=== PATIENT | female | born 1985 | race Caucasian/White ===

== ENCOUNTER 2024-06-17 18:24 | Inpatient (IN) | payer OTHER, SELFPAY ==
[2024-06-17 13:30] VITALS: BP 153/94
[2024-06-17 13:55] LABS: % Basophils 0.1 % (0-2); % Eosinophils 0.1 % (0-6); % Immature Granulocytes 1.6 % (0-0.5); % Lymphocytes 9.6 % (20.5-51.1); % Monocytes 3.6 % (1.7-9.3); Absolute Immature Granulocytes 0.2 10^3/uL (0-0.05); Absolute Lymphocytes 1.3 10^3/uL (1.2-3.4); Absolute Monocytes 0.5 10^3/uL (0.1-0.6); Absolute Neutrophils 11.5 10^3/uL (1.4-6.5); Hematocrit 31.9 % (37.0-47.0); Hemoglobin 11.4 g/dL (12.0-16.0); Mean Corp Hgb Conc. 35.7 g/dL (33.0-37.0); Mean Corpuscular Hgb 32.9 pg (27.0-31.0); Mean Corpuscular Volume 91.9 fL (81.0-99.0); Mean Platelet Volume 9.2 fL (7.4-10.4); Nucleated Red Blood Cells % 0 %; Platelet Count 110 10^3/uL (130-400); Red Blood Cell Count 3.47 10^6/uL (4.20-5.40); Red Cell Dist. Width 20.1 % (11.5-14.5); White Blood Cell Count 13.5 10^3/uL (4.8-10.8)
[2024-06-17 14:04] LABS: HCG, Serum Qualitative Screen Negative
[2024-06-17 14:21] LABS: ALT (SGPT) 82 U/L (0-35); AST (SGOT) 261 U/L (14-36); Albumin 3.3 g/dl (3.5-5.0); Alkaline Phosphatase 236 U/L (38-126); Blood Urea Nitrogen 8 mg/dl (7-17); Calcium 8.5 mg/dl (8.4-10.2); Carbon Dioxide 18 mmol/L (22-30); Chloride 107 mmol/L (98-107); Glucose 247 mg/dl (70-99); Lipase 373 U/L (23-300); Potassium 4.3 mmol/L (3.5-5.1); Sodium 132 mmol/L (135-145); Total Bilirubin 8.1 mg/dl (0.2-1.3); Total Protein 7.7 g/dl (6.3-8.2); eGFR > 60.00
[2024-06-17 14:40] LABS: Urine Albumin Negative (Neg - Trace); Urine Bilirubin 1+ (Negative); Urine Character Clear (Clear); Urine Color Yellow; Urine Glucose Negative (Negative); Urine Ketone Negative (Negative); Urine Leukocyte Negative (Negative); Urine Nitrite Negative (Negative); Urine Occult Blood Negative (Negative); Urine Urobilinogen 2+ (Neg - 1+); Urine pH 6.5 (5.0-9.0)
[2024-06-17 16:04] LABS: Alcohol None Detected
--- NOTE | 2024-06-17 16:17 | ED.GENMED ---
History of Present Illness
General
Chief Complaint: Swelling
Source: patient
Exam Limitations: none
Time Seen by Provider: 06/17/24 14:36
Nursing documentation reviewed up to this point in time: agreed with
History of Present Illness
History of Present Illness:
Patient to ED [facility] complaint of swelling to abdomen and legs. States she was admitted to [place] 06/10 for jaundice. Labs confirm alcohol hepatitis.CT reveals hepatosplenomegaly/portal hypertension. Small amt of ascites. Tbilii max 7.0, elvated
LFT's. MRCP reportedly negative. She received IVF, zosyn, PPI and improved some. She was instructed to obtain weekly labs, close follow up with GI. States today she woke with extreme swelling. Brought self to ED for eval. Denies fever/chills.
+nausea, No v/d. States last alcoholic drink was prior to her dana admission. No reports of withdrawal.
Past History
Past History
ED Past Medical History: Psychiatric and Other (alcoholic hepatitis)
ED Past Surgical History: None
Social History
Tobacco: Vaping
Alcohol: Chronic alcoholic
Drug: None
Living: with family
Employment: Employed
Review of Systems
Review of Systems
Allergies reviewed?: Yes
All Other Systems: ROS reviewed and negative except as documented in HPI and ROS
Constitutional: Reports no symptoms
EENT: Reports no symptoms
Respiratory: Reports no symptoms
Cardiac: Reports no symptoms
ABD/GI: Reports nausea and other (ascites)
: Reports dark urine
Musculoskeletal: Reports no symptoms
Skin: Reports other (Jaundice)
Neurological: Reports no symptoms
Psychiatric: Reports no symptoms
Phy Exam
General Physical Exam
General Presentation: mild distress
General age: appears stated age
General Skin: warm, cyanotic and other (Jaundice)
General Habitus: normal
Cardiovascular Exam
Cardiovascular Exam: regular rate/rhythm
Pulmonary Exam
Pulmonary Exam: lungs clear and no respiratory distress
Gastrointestinal Exam
Gastrointestinal Exam: normal bowel sounds, soft and ascites
Palpation: generalized: Mild tenderness
Musculoskeletal Exam
Musculoskeletal Exam: edema (+3 BLE)
Skin Exam
Skin Exam: warm/dry, no rash and jaundice
Psychiatric Exam
Psychiatric Exam: normal mood/affect
Course
Orders/Labs/Results
Orders:
Orders
06/17/24 13:34
EKG [Electrocardiogram (*1)] Urgent
Reason for Study: Tachycardia
EKG- Treatment ONCE
Test Result ONCE
06/17/24 13:44
Alcohol Urgent
Complete Blood Count/With Diff Urgent
Comprehensive Metabolic Panel Urgent
HCG, Serum Qualitative Screen Urgent
Comment: Notify provider if positive test present
Lipase Urgent
06/17/24 14:30
Urinalysis Reflex To Culture Urgent
Date Specimen was Collected: 06/17/24
Time Specimen was Collected: 13:33
06/17/24 Dinner
Regular
At Your Request: Full Participation
06/17/24 15:26
Add On- LAB Urgent
Tests Added?: alcohol
06/17/24 16:15
US Abdomen Complete/Upper Urgent
Comment:
Reason For Exam: pain, abdominal swelling
06/17/24 16:29
0.9% Sodium Chloride 1000 ml [Nss] 1,000 ml IV BOLUS
06/17/24 16:43
Ketorolac [Toradol] 15 mg .ROUTE .STK-MED ONE
06/17/24 16:44
Ketorolac [Toradol] 15 mg IV NOW STA
06/17/24 18:05
Admit/Transfer Patient As Directed
Co-Sign Provider:
Level of Care: Inpatient admission
Assign to:: Medical/Surgical
Physician / Group: thomas
Diagnosis: alcoholic cirrhosis, alcoholic hepatitis
Reason for Hospitalization: alcoholic cirrhosis, alcoholic hepatitis
Expected length of stay greater than two midnights?: Yes
ELOS- Estimated Length of Stay in days: 2
I certify the patient meets the requirements for IP care: Yes
PRN Pain Medication Management As Directed
May give lesser potent ordered pain med per pt: Yes
preference::
Protocol:: Medication orders for pain may be administered in a
manner that supports deferring to patient preference
when the pt is:
- Requesting an ordered lesser potent pain medication.
Least to most potent pain medications are defined
as: acetaminophen < NSAID < tramadol < opioids
(morphine, oxycodone, hydromorphone).
- Requesting a lesser dose of the same medication IF
ORDERED.
- Requesting a less intrusive route of administration
if both routes are prescribed by the provider (PO <
IV).
06/17/24 18:06
Code Status As Directed
Resuscitation Status: Full Code
06/17/24 18:07
CR Chest - 2 Views Urgent
Comment:
Reason For Exam: SOB, eval for effusion
06/17/24 19:15
HYDROmorphone [Dilaudid] 0.5 mg IV Q4HPRN PRN
Ondansetron Injectable [Zofran] 4 mg IV Q6HPRN PRN
06/17/24 19:15
Activity As Directed
Activity Level: As Tolerated
Vital Signs As Directed
Frequency: Per unit guidelines
DX Deep Vein Thrombosis Video Routine
06/17/24 20:00
Heparin 5,000 units SC Q12
06/18/24 06:00
Complete Blood Count/With Diff IN AM
Comprehensive Metabolic Panel IN AM
06/18/24 08:00
Furosemide [Lasix] 40 mg PO DAILY
Spironolactone [Aldactone] 100 mg PO DAILY
Abnormal Lab Results
06/17/24 06/17/24
13:44 14:30
WBC 13.5 H 10^3/uL
(4.8-10.8)
RBC 3.47 L 10^6/uL
(4.20-5.40)
Hgb 11.4 L g/dL
(12.0-16.0)
Hct 31.9 L %
(37.0-47.0)
MCH 32.9 H pg
(27.0-31.0)
RDW 20.1 H %
(11.5-14.5)
Plt Count 110 L 10^3/uL
(130-400)
Abs Immat Gran (auto) 0.2 H 10^3/uL
(0-0.05)
Absolute Neuts (auto) 11.5 H 10^3/uL
(1.4-6.5)
Immature Gran % 1.6 H %
(0-0.5)
Neutrophils % 85.0 H %
(42.2-75.2)
Lymphocytes % 9.6 L %
(20.5-51.1)
Sodium 132 L mmol/L
(135-145)
Carbon Dioxide 18 L mmol/L
(22-30)
Glucose 247 H mg/dl
(70-99)
Total Bilirubin 8.1 H mg/dl
(0.2-1.3)
AST 261 H U/L
(14-36)
ALT 82 H U/L
(0-35)
Alkaline Phosphatase 236 H U/L
(38-126)
Albumin 3.3 L g/dl
(3.5-5.0)
Lipase 373 H U/L
(23-300)
Urine Bilirubin 1+ A
(Negative)
Urine Urobilinogen 2+ A
(Neg - 1+)
06/17/24 13:44
06/17/24 13:44
Vital Signs
Initial and Last Documented VS:
Initial Vital Signs
Temp Pulse Resp BP Pulse Ox
98.9 F 129 18 153/94 96
06/17/24 13:30 06/17/24 13:30 06/17/24 13:30 06/17/24 13:30 06/17/24 13:30
Last Documented Vital Signs
Temp Pulse Resp BP Pulse Ox
98.3 F 91 20 142/84 99
06/17/24 19:33 06/17/24 19:33 06/17/24 19:33 06/17/24 19:33 06/17/24 19:33
*Critical Care Note
Total Time (30-74mins, 75-104mins- exclusive of procedures): Not Applicable
ED Attending Note
-
Portions of this chart may have been created with voice recognition software.� Occasional wrong word or��sound alike� substitutions may have occurred due to the inherent limitations of voice recognition software.
Discharge Plan
Departure
Patient Disposition: Admit
Date of Disposition: 06/17/24
Time of Disposition: 17:01
Presentation/result/management discussed w/ accepting MD/DO: Hospitalist
Patient with high blood pressure during this ER visit?: No
Condition: Fair
Covid-19: Not Applicable
Discharge Problem:
Elevated LFTs, Ascites
Interventions
Interventions:
*Risk Screen - Suicide Last Done: 06/17/24 13:30
*General Assessment Last Done: 06/17/24 13:30
*Neglect/Abuse Screening Last Done: 06/17/24 13:30
ED- Fall Risk Assessment Last Done: 06/17/24 19:09
*ED COVID-19 Vaccine History Last Done: 06/17/24 13:30
*Nursing Disposition Last Done: 06/17/24 19:09
ED- Cardiac Assessment Last Done: 06/17/24 16:09
ED- Pulmonary Assessment Last Done: 06/17/24 16:09
ED-Skin Assessment Last Done: 06/17/24 16:09
Discharge Date and Time
Discharge Date/Time: 06/17/24 19:09
[2024-06-17] MEDS: TORADOL 15 MG IV (16:44)
--- NOTE | 2024-06-17 18:08 | HPS.HSE ---
Addendum entered and electronically signed by Juliet Cosby MD 06/17/24 19:57:
Alcohol withdrawal protocol added.
Original Note:
Family Physician
-
Family Physician: Louisa Tripathi PA-C
Chief Complaint
-
swelling
History of Present Illness
39-year-old female past medical history of gastric bypass in 2011, ADHD, history of perforated ulcer 5 years ago, GI bleeding secondary to anastomotic ulcer in the duodenum, internal hemorrhoids, GERD, anxiety, alcohol use, tobacco use presenting
with complaint of swelling of the abdomen and legs today since yesterday. She complains of pains in her legs and intermittent pain in her belly. She feels more short of breath than usual. She denies chest pain. She also think she is more
jaundiced than usual.
Denies fevers or chills. She does have nausea and dry heaving for the past several weeks. She denies diarrhea.
She was admitted at [facility] on 06/10 for jaundice. She was just released 3 days ago. She was found to have alcoholic hepatitis with CT scan showing hepatosplenomegaly/portal hypertension small amount of ascites. She had MRCP which was
negative. She received IV fluids, Zosyn, PPI with improvement. She also treated with prednisone with plan for eventual endoscopy.
She has not had any alcohol since the day prior to her admission to [place] on 06/10. She smokes socially. Denies marijuana or any other drugs.
Medical History
Past Medical History
Past Medical History: Reports Other (gastric bypass in 2011, ADHD, history of perforated ulcer 5 years ago, GI bleeding secondary to anastomotic ulcer in the duodenum, internal hemorrhoids, GERD, anxiety, alcohol use, tobacco use)
Past Surgical History: Reports Other (Rekha-en-Y gastric bypass, jaw surgery)
Social History
Tobacco: Smoker
Alcohol: Former
Drug: None
Family History
Family History: Not pertinent
Allergies / Home Medications
Allergies reflects when Allergies were last updated in [facility].
Home Medications with original date entered in [facility]
Allergy/Medication List:
Allergies
Allergy/AdvReac Type Severity Reaction Status Date / Time
No Known Allergies Allergy Verified 06/17/24 13:30
Home Medications
acetaminophen 500 mg tablet (Tylenol Extra Strength) 500 mg PO DAILYPRN PRN pain 09/06/17
lisdexamfetamine 20 mg capsule (Vyvanse) 20 mg PO DAILY 09/06/17
cyanocobalamin (vitamin B-12) 1,000 mcg tablet 1,000 mcg PO DAILY #30 tabs 09/07/17
ferrous sulfate 325 mg (65 mg iron) tablet (Feosol) 325 mg PO DAILY #60 tabs 09/07/17
pantoprazole 40 mg tablet,delayed release 40 mg PO DAILY #30 tabs 09/07/17
hydrocortisone acetate 25 mg rectal suppository 25 mg AL HSPRN PRN Hemorroids #30 supp 09/08/17
Review of Systems
-
History Source: Patient
A 12 point ROS was completed and negative except as noted: Yes
Constitutional: Reports No Symptoms
EENT: Reports No Symptoms
Respiratory: Reports No Symptoms
Cardiac: Reports No Symptoms
Abdomen/GI: Reports See HPI
: Reports No Symptoms
Musculoskeletal: Reports No Symptoms
Skin: Reports No Symptoms
Neurological: Reports No Symptoms
Endocrine: Reports No Symptoms
Hematologic/Lymphatic: Reports No Symptoms
Psych: Reports No Symptoms
Physical Exam
Vital Signs
Vital Signs
Temp Pulse Resp BP Pulse Ox
98.9 F 129 18 153/94 96
06/17/24 13:30 06/17/24 13:30 06/17/24 13:30 06/17/24 13:30 06/17/24 13:30
Physical Exam
General: Well Developed, Well Nourished and No Apparent Distress
HEENT: NormoCephalic, Moist mucous membranes and Atraumatic
Respiratory: Clear
Cardiac: S1/S2 and Regular Rhythm; No Murmur or Rub
GI: Soft, Non Distended, Normal Bowel Sounds and Tender; No Organomegaly
Rectal: Deferred by Provider
Musculoskeletal: No Clubbing, No Cyanosis and No Edema
Skin: No Rash
Neuro: Nonfocal/grossly intact
Laboratory Results
-
06/17/24 13:44
06/17/24 13:44
Laboratory Results
Total Bilirubin 8.1 mg/dl (0.2-1.3) H 06/17/24 13:44
AST 261 U/L (14-36) H 06/17/24 13:44
ALT 82 U/L (0-35) H 06/17/24 13:44
Alkaline Phosphatase 236 U/L (38-126) H 06/17/24 13:44
Lipase 373 U/L (23-300) H 06/17/24 13:44
Data Reviewed
-
Lab Data: Labs Reviewed by me
Old Records: Reviewed
Impression/Plan
-
IMPRESSION:
PLAN:
# Abdominal ascites/peripheral edema secondary to decompensated alcoholic cirrhosis
-Abdominal ultrasound pending to see if IR paracentesis possible
-Check chest x-ray to evaluate for hepatic hydrothorax
-Bilirubin 8.1 from 7 during [place] hospitalization
-GI consulted
-Start Lasix 40 mg, spironolactone 100 mg for edema
# Transaminitis secondary to worsening alcoholic hepatitis
-Continue prednisone which was started at [place]
-Trend liver enzymes
History of Rekha-en-Y gastric bypass in 2011
History of perforated ulcer
History of GI bleeding secondary to anastomotic ulcer in the duodenum
-Continue Protonix
Chronic anemia secondary to anemia of chronic disease
-Hemoglobin higher than recent times at 11.4
-Continue ferrous sulfate
-Continue B12
Thrombocytopenia secondary to cirrhosis
-Platelets 110
History of internal hemorrhoids
GERD
-Continue Protonix
Anxiety
ADHD
-Continue Vyvanse
Alcohol use disorder
-No alcohol use since 06/09
History of tobacco use
-Social smoker
Full code
DVT prophylaxis�heparin
Low-sodium diet
[2024-06-17 19:33] VITALS: BP 142/84; BMI 32.8
[2024-06-17] MEDS: HEPARIN 5000 UNITS SC (21:46)
[2024-06-17 22:15] VITALS: BP 127/85
[2024-06-17] MEDS: ATIVAN 0.5 MG IV (23:19)
[2024-06-17] MEDS: NSS (PRESERVATIVE FREE) 0.25 ML IV (23:20)
[2024-06-18] MEDS: ZOFRAN 4 MG IV (01:57)
[2024-06-18] MEDS: DILAUDID 0.5 MG IV ×2 (05:05→15:00)
[2024-06-18 07:00] VITALS: BP 114/74
[2024-06-18 07:46] LABS: % Basophils 0.2 % (0-2); % Eosinophils 0.7 % (0-6); % Immature Granulocytes 1.1 % (0-0.5); % Lymphocytes 21.3 % (20.5-51.1); % Monocytes 13.6 % (1.7-9.3); % Neutrophils 63.1 % (42.2-75.2); Absolute Eosinophils 0.1 10^3/uL (0-0.7); Absolute Immature Granulocytes 0.2 10^3/uL (0-0.05); Absolute Lymphocytes 3.2 10^3/uL (1.2-3.4); Absolute Neutrophils 9.4 10^3/uL (1.4-6.5); Hematocrit 29.7 % (37.0-47.0); Hemoglobin 10.6 g/dL (12.0-16.0); Mean Corp Hgb Conc. 35.7 g/dL (33.0-37.0); Mean Corpuscular Hgb 32.4 pg (27.0-31.0); Mean Corpuscular Volume 90.8 fL (81.0-99.0); Mean Platelet Volume 9.4 fL (7.4-10.4); Nucleated Red Blood Cells % 0 %; Platelet Count 111 10^3/uL (130-400); Red Blood Cell Count 3.27 10^6/uL (4.20-5.40); Red Cell Dist. Width 20.3 % (11.5-14.5); White Blood Cell Count 14.8 10^3/uL (4.8-10.8)
[2024-06-18] MEDS: HEPARIN 5000 UNITS SC (08:32)
[2024-06-18] MEDS: THERAGRAN 1 TABLET PO (08:33)
[2024-06-18] MEDS: ALDACTONE 100 MG PO (08:33)
[2024-06-18] MEDS: DELTASONE 40 MG PO (08:33)
[2024-06-18] MEDS: B COMPLEX w/VITAMIN C 1 CAPLET PO (08:33)
[2024-06-18] MEDS: EFFEXOR XR 75 MG PO (08:33)
[2024-06-18] MEDS: FOLVITE 1 MG PO (08:33)
[2024-06-18] MEDS: PROTONIX 40 MG PO (08:33)
[2024-06-18] MEDS: LASIX 40 MG PO (08:33)
[2024-06-18] MEDS: VITAMIN B1 100 MG PO (08:33)
--- NOTE | 2024-06-18 08:37 | CON.GI ---
Medical History
Chief Complaint / HPI
Chief Complaint: Lower extremity edema + worsening juandice
History of Present Illness:
Patient is a 39-year-old female with a past medical history of gastric bypass (2011), ADHD, anxiety, perforated duodenal ulcer s/p metal suture, internal hemorrhoids, GERD, chronic alcohol use disorder presenting with lower extremity edema and
worsening jaundice. Patient recently presented to [place] with jaundice, dark urine, and telangiectasia and was diagnosed with acute alcoholic hepatitis. Steroid was started on 06/09 which resulted in relative improvement of symptoms. Patient also
had MRCP done during [place] admission due to gallbladder distention and suspicion for cholecystitis which was negative. Patient was discharged on prednisone for 24 days, however she mentions worsening of jaundice and noticing lower extremity
edema 2 days after discharge for which she came into .
At the time of this consultation, patient denies any fever, nausea, vomiting, chest pain. Mentions right-sided abdominal pain early in the morning. Also mentions getting out of breath easily. She has gained 20 pounds during the past 2 weeks.
Reports urinary frequency but no dysuria (lasix not yet given). Her last bowel movement was yesterday which had normal consistency and was not bloody or dark. Her last endoscopy and colonoscopy were in 2016. Does not have a regular GI doctor.
Last alcoholic drink was about 2 weeks ago.
Abdomen ultrasound here suggests splenomegaly, hepatomegaly, the possibility of liver cirrhosis and probable superimposed hepatocellular disease. Also small amount of ascites present within the right and left lower quadrant.
Past Medical History
Past Medical History: GERD and Psychiatric
Past Surgical History: Other (Gastric bypass)
Social History
Tobacco: Smoker
Alcohol: Chronic Alcoholic
Family History
Family History: Reviewed & Not Pertinent
Allergies / Home Medications
Allergy/AdvReac Type Severity Reaction Status Date / Time
No Known Allergies Allergy Verified 06/17/24 13:30
�Medication �Instructions �Recorded
pantoprazole 40 mg tablet,delayed 40 mg PO DAILY #30 tabs 09/07/17
release
Ativan 1 mg PO PRN anxiety 06/17/24
dextroamphetamine-amphetamine 30 30 mg PO BID 06/17/24
mg tablet
diphenhydramine 25 1 tab PO HSPRN PRN mild pain 06/17/24
mg-acetaminophen 500 mg tablet
(Tylenol PM Extra Strength)
folic acid 1 mg tablet 1 mg PO DAILY 06/17/24
prednisone 20 mg tablet 40 mg PO DAILY 06/17/24
therapeutic multivitamin 1 tab PO DAILY 06/17/24
thiamine HCl (vitamin B1) 100 mg 100 mg PO DAILY 06/17/24
tablet
venlafaxine 75 mg tablet,extended 75 mg PO DAILY 06/17/24
release 24 hr
vitamin B complex 1 cap PO DAILY 06/17/24
Review of Systems
-
History Source: Patient
Constitutional: Reports Weight Gain
Respiratory: Reports Trouble Breathing
Abdomen/GI: Reports Abdominal Pain; Denies Nausea, Vomiting, Diarrhea, Constipated, Bloody Stools or Black Stools
: Reports Frequency
Skin: Reports Rash; Denies Itching
Neurological: Denies Dizzy or Headache
Vital Signs
Temp Pulse Resp BP Pulse Ox
98.5 F 102 18 127/85 100
06/17/24 22:15 06/17/24 22:15 06/17/24 22:15 06/17/24 22:15 06/17/24 22:15
Physical Exam
Exam
General: Well Developed and No Apparent Distress
HEENT: Other (Icteric, )
Respiratory: Clear
Cardiac: S1/S2, Regular Rhythm and Other (Tachycardic)
GI: Soft, Non Tender, Normal Bowel Sounds, Distended and Organomegaly
Musculoskeletal: No Clubbing and Edema (Nonpitting 1+ edema)
Skin: Rash and Other (Jaundice)
Neuro: Awake, Alert, Oriented and AO x 3; Negative Tremors
Psych: Calm
Results
WBC 14.8 10^3/uL (4.8-10.8) H 06/18/24 07:36
Hgb 10.6 g/dL (12.0-16.0) L 06/18/24 07:36
Hct 29.7 % (37.0-47.0) L 06/18/24 07:36
MCV 90.8 fL (81.0-99.0) 06/18/24 07:36
Plt Count 111 10^3/uL (130-400) L 06/18/24 07:36
Absolute Neuts (auto) 9.4 10^3/uL (1.4-6.5) H 06/18/24 07:36
Sodium 132 mmol/L (135-145) L 06/17/24 13:44
Potassium 4.3 mmol/L (3.5-5.1) 06/17/24 13:44
Chloride 107 mmol/L (98-107) 06/17/24 13:44
Carbon Dioxide 18 mmol/L (22-30) L 06/17/24 13:44
BUN 8 mg/dl (7-17) 06/17/24 13:44
Creatinine 0.6 mg/dL (0.6-1.0) 06/17/24 13:44
Calcium 8.5 mg/dl (8.4-10.2) 06/17/24 13:44
Total Bilirubin 8.1 mg/dl (0.2-1.3) H 06/17/24 13:44
AST 261 U/L (14-36) H 06/17/24 13:44
ALT 82 U/L (0-35) H 06/17/24 13:44
Alkaline Phosphatase 236 U/L (38-126) H 06/17/24 13:44
Lipase 373 U/L (23-300) H 06/17/24 13:44
Diagnostic Image Results: Abdominal ultrasound (06/17/2024)
Mobile sludge is present within the gallbladder. Gallbladder wall thickness is top normal, nonspecific.
No evidence of biliary ductal dilation.
Hepatomegaly. Increased echogenicity of the liver with slight heterogeneity and increased attenuation of the ultrasound beam. Findings suggest that there is fatty infiltration. Heterogeneity may also indicate underlying hepatocellular disease.
Splenomegaly with recannulized paraumbilical vein and small amount of ascites. Findings suggest the possibility of cirrhosis.
Prior GI Procedures:
EGD: 09/07/17
Rekha-en-Y gastrojejunostomy with gastrojejunal
anastomosis characterized by healthy appearing mucosa.
- Normal stomach. Biopsied.
- One non-bleeding superficial chronic anastomotic
duodenal ulcer with no stigmata of bleeding. Biopsied.
- Duodenal foreign body (metal suture) .
- Normal examined duodenum. Biopsied.
Colonoscopy: 09/08/17
- Non-bleeding internal hemorrhoids.
- The entire examined colon is normal.
- The examined portion of the ileum was normal.
Assessment / Plan
-
Patient is a 39-year-old female with a past medical history of gastric bypass (2011), ADHD, anxiety, perforated duodenal ulcer s/p metal suture, internal hemorrhoids, GERD, chronic alcohol use disorder presenting with lower extremity edema and
worsening jaundice. Patient recently presented to [place] with jaundice, dark urine, and telangiectasia and was diagnosed with acute alcoholic hepatitis. Steroid was started on 06/09. Currently day 10.
She recently traveled to [place] but the flight was only 35 minutes. Patient denies any fever or chest pain. Mentions right-sided abdominal pain early in the morning but no nausea, vomiting. Also mentions getting out of breath easily. She
has gained 20 pounds during the past 2 weeks. Reports urinary frequency but no dysuria (lasix not yet given). Her last bowel movement was yesterday which had normal consistency and was not bloody or dark. Her last endoscopy and colonoscopy were in
2016. Does not have a regular GI doctor. Last alcoholic drink was about 2 weeks ago. On physical exam patient has visible jaundice. No tenderness to palpation. No rebound or guarding. Negative fluid shift.
Labs show anemia, thrombocytopenia, mild leukocytosis. Last bili is 8.1. AST > ALT suggesting alcohol hepatitis. Mild hyponatremia.
Abdomen ultrasound here suggests splenomegaly, hepatomegaly, the possibility of liver cirrhosis and probable superimposed hepatocellular disease. Also small amount of ascites present within the right and left lower quadrant.
Recommendations:
-Day 10 of steroid. Lille score is 0.053
-Continue MSAS protocol
-Continue spironolactone and Lasix
-Continue Protonix
-CT scan to evaluate focal hepatic lesions
-LFTs this a.m. pending
-Advised patient regarding alcohol abstinence
-
-
Thank you for consultation and allowing me to participate in the patient's care. Please call the nutrition aide GI physician during the after hours with any questions or concerns.
--- NOTE | 2024-06-18 09:02 | W.PN.HOSP.TC ---
Today's Communication/Plan
-
see bold
Assessment / Plan
Assessment / Plan
HPI: 39-year-old female past medical history of gastric bypass in 2011, ADHD, history of perforated ulcer 5 years ago, GI bleeding secondary to anastomotic ulcer in the duodenum, internal hemorrhoids, GERD, anxiety, alcohol use, tobacco use
presenting with complaint of swelling of the abdomen and legs today since yesterday. She complains of pains in her legs and intermittent pain in her belly. She feels more short of breath than usual. She denies chest pain. She also think she is
more jaundiced than usual.
She was admitted at [facility] on 06/10 for jaundice. She was just released 3 days ago. She was found to have alcoholic hepatitis with CT scan showing hepatosplenomegaly/portal hypertension small amount of ascites. She had MRCP which was
negative. She received IV fluids, Zosyn, PPI with improvement. She also treated with prednisone with plan for eventual endoscopy.
She has not had any alcohol since the day prior to her admission to [place] on 06/10. She smokes socially. Denies marijuana or any other drugs.
# Abdominal ascites/peripheral edema secondary to decompensated alcoholic cirrhosis
Appreciate GI input, IR consulted for diagnostic thoracentesis
Lower extremity Dopplers ordered to rule out DVT
Continue Lasix/Aldactone, start fluid restriction, trend creatinine
# Hyperbilirubinemia/jaundice
# Transaminitis secondary to worsening alcoholic hepatitis
-GI changed prednisone that was started at [place] to prednisolone
-Trend liver enzymes
Alcohol use disorder
-No alcohol use since 06/09
-Alcohol cessation counseling has been provided
Anxiety
-Resume home Ativan as needed
History of Rekha-en-Y gastric bypass in 2011
History of perforated ulcer
History of GI bleeding secondary to anastomotic ulcer in the duodenum
-Continue Protonix
Chronic anemia secondary to anemia of chronic disease
-Continue ferrous sulfate
-Continue B12
-Trend hemoglobin
Thrombocytopenia secondary to cirrhosis
-Platelets 110
History of internal hemorrhoids
GERD
-Continue Protonix
Anxiety
ADHD
-Continue Vyvanse
History of tobacco use
-Social smoker
DVT prophylaxis�subcu heparin
Full code
Total time spent to see the patient on the floor, examine the patient, review data and lab results, discuss treatment plan with patient, nursing staff around 51 minutes.
Physical Exam
General: Obese, no acute distress
HEENT: Normocephalic, Atraumatic, EOMI, MMM
Respiratory: Clear to Auscultation bilaterally
Cardiac: Normal S1/S2, Regular Rate and Rhythm
GI: Soft, Nontender, mildly distended, no masses guarding or rebound
Extremities: No Clubbing, Cyanosis
Bilateral lower extremity edema noted
Neuro: Nonfocal/Grossly Intact
Psych: Calm, Cooperative
Derm: No Visible lesions
Anticipated Discharge: 24 - 48 hours
Subjective/Interval History
-
Date of Service: June 18, 2024
Patient reports abdominal distention and lower extremity swelling mildly improved. Has dyspnea with activity, no shortness of breath at rest. No fever, no vomiting.
Objective Data
-
Labs:
Laboratory Results
06/18/24
07:36
WBC 14.8 H
Hgb 10.6 L
Hct 29.7 L
Plt Count 111 L
Sodium Pending
Potassium Pending
Chloride Pending
Carbon Dioxide Pending
BUN Pending
Creatinine Pending
Glucose Pending
Calcium Pending
Total Bilirubin Pending
AST Pending
ALT Pending
Alkaline Phosphatase Pending
Vital Signs:
Vital Signs
Temp Pulse Resp BP Pulse Ox
98.5 F 102 18 127/85 100
06/17/24 22:15 06/17/24 22:15 06/17/24 22:15 06/17/24 22:15 06/17/24 22:15
I&O
06/17/24 06/18/24 06/19/24
06:59 06:59 06:59
Intake Total 720 / 720
Balance 720 / 720
[2024-06-18 09:51] LABS: ALT (SGPT) 83 U/L (0-35); AST (SGOT) 234 U/L (14-36); Albumin 2.8 g/dl (3.5-5.0); Alkaline Phosphatase 207 U/L (38-126); Blood Urea Nitrogen 9 mg/dl (7-17); Carbon Dioxide 23 mmol/L (22-30); Chloride 108 mmol/L (98-107); Estimated Creatinine Clearance > 125 ml/min; Glucose 72 mg/dl (70-99); Potassium 3.8 mmol/L (3.5-5.1); Sodium 136 mmol/L (135-145); Total Protein 6.7 g/dl (6.3-8.2); eGFR > 60.00
[2024-06-18] MEDS: ATIVAN 1 MG PO (11:12)
[2024-06-18 15:00] VITALS: BP 126/78
--- NOTE | 2024-06-18 16:06 | CM ---
Patient seen at bedside.
Dx: Alcoholic Cirrhosis Alcoholic hepatitis
PMH: gastric bypass 2012, anxiety, perforated ulcer, GERD
Case management consult complete.
Patient declined [facility] resources.
Lives in a 3 story home with 8 y/o son. 5 steps to enter & 12 steps to 2nd/3rd floor.
PLOF: Independent & drives
No DME in home.
CM to follow.
PCP: Louisa Tripathi
[facility]acy: [facility]
PLAN: Discharge when medically stable.
No anticipated needs currently.
[2024-06-18 18:35] LABS: INR 1.74; PT 20.5 Sec (11.4-14.6)
[2024-06-18 20:01] LABS: AFP Male/Tumor Marker 6.92 ng/ml
[2024-06-18 23:55] VITALS: BP 121/72
[2024-06-19] MEDS: HEPARIN 5000 UNITS SC ×3 (00:43→19:43)
[2024-06-19] MEDS: DILAUDID 0.5 MG IV ×3 (02:53→22:22)
[2024-06-19 07:00] VITALS: BP 117/66
[2024-06-19] MEDS: PRELONE 40 MG PO (08:52)
--- NOTE | 2024-06-19 08:53 | W.PN.HOSP.TC ---
Today's Communication/Plan
-
Discharge tomorrow
Assessment / Plan
Assessment / Plan
HPI: 39-year-old female past medical history of gastric bypass in 2011, ADHD, history of perforated ulcer 5 years ago, GI bleeding secondary to anastomotic ulcer in the duodenum, internal hemorrhoids, GERD, anxiety, alcohol use, tobacco use
presenting with complaint of swelling of the abdomen and legs today since yesterday. She complains of pains in her legs and intermittent pain in her belly. She feels more short of breath than usual. She denies chest pain. She also think she is
more jaundiced than usual.
She was admitted at [facility] on 06/10 for jaundice. She was just released 3 days ago. She was found to have alcoholic hepatitis with CT scan showing hepatosplenomegaly/portal hypertension small amount of ascites. She had MRCP which was
negative. She received IV fluids, Zosyn, PPI with improvement. She also treated with prednisone with plan for eventual endoscopy.
She has not had any alcohol since the day prior to her admission to [place] on 06/10. She smokes socially. Denies marijuana or any other drugs.
# Abdominal ascites/peripheral edema secondary to decompensated alcoholic cirrhosis
Appreciate GI input, not enough fluid to drain
Lower extremity Dopplers negative for DVT
Continue Lasix/Aldactone, start fluid restriction, trend creatinine
Discharge tomorrow
# Hyperbilirubinemia/jaundice
# Transaminitis secondary to worsening alcoholic hepatitis
-GI changed prednisone that was started at [place] to prednisolone, will need to be discharged on a prednisolone taper
-Trend liver enzymes
#Hyponatremia
Mild
Alcohol use disorder
-No alcohol use since 06/09
-Alcohol cessation counseling has been provided
Anxiety
-[facility]
History of Rekha-en-Y gastric bypass in 2011
History of perforated ulcer
History of GI bleeding secondary to anastomotic ulcer in the duodenum
-Continue Protonix
Chronic anemia secondary to anemia of chronic disease
-Continue ferrous sulfate
-Continue B12
-Trend hemoglobin
Thrombocytopenia secondary to cirrhosis
-Platelets stable
History of internal hemorrhoids
GERD
-Continue Protonix
Anxiety
ADHD
-Continue Vyvanse
History of tobacco use
-Social smoker
DVT prophylaxis�subcu heparin
Full code
Total time spent to see the patient on the floor, examine the patient, review data and lab results, discuss treatment plan with patient, nursing staff around 41 minutes.
Physical Exam
General: Obese, no acute distress
HEENT: Normocephalic, Atraumatic, EOMI, MMM
Respiratory: Clear to Auscultation bilaterally
Cardiac: Normal S1/S2, Regular Rate and Rhythm
GI: Soft, Nontender, mildly distended, no masses guarding or rebound
Extremities: No Clubbing, Cyanosis
Bilateral lower extremity edema noted
Neuro: Nonfocal/Grossly Intact
Psych: Calm, Cooperative
Derm: Scattered ecchymosis
Anticipated Discharge: Within 24 hours
Subjective/Interval History
-
Date of Service: June 19, 2024
Patient reports intermittent abdominal pain and headache. No fever, no vomiting.
Objective Data
-
Labs:
Laboratory Results
06/19/24
06:00
WBC Pending
Hgb Pending
Hct Pending
Plt Count Pending
Sodium Pending
Potassium Pending
Chloride Pending
Carbon Dioxide Pending
BUN Pending
Creatinine Pending
Glucose Pending
Calcium Pending
Total Bilirubin Pending
AST Pending
ALT Pending
Alkaline Phosphatase Pending
Vital Signs:
Vital Signs
Temp Pulse Resp BP Pulse Ox
98.0 F 78 18 121/72 97
06/18/24 23:55 06/18/24 23:55 06/18/24 23:55 06/18/24 23:55 06/18/24 23:55
I&O
06/18/24 06/19/24 06/20/24
06:59 06:59 06:59
Intake Total 720 / 720 1680 / 1680
Balance 720 / 720 1680 / 1680
[2024-06-19] MEDS: ALDACTONE 100 MG PO (08:54)
[2024-06-19] MEDS: B COMPLEX w/VITAMIN C 1 CAPLET PO (08:54)
[2024-06-19] MEDS: EFFEXOR XR 75 MG PO (08:54)
[2024-06-19] MEDS: LASIX 40 MG PO (08:54)
[2024-06-19] MEDS: FOLVITE 1 MG PO (08:54)
[2024-06-19] MEDS: THERAGRAN 1 TABLET PO (08:54)
[2024-06-19] MEDS: VITAMIN B1 100 MG PO (08:54)
[2024-06-19] MEDS: PROTONIX 40 MG PO (08:54)
[2024-06-19] MEDS: ATIVAN 1 MG PO ×2 (09:04→19:55)
[2024-06-19 09:20] VITALS: BP 113/69; BP_SYST 106
[2024-06-19 11:18] LABS: Hematocrit 27.9 % (37.0-47.0); Hemoglobin 9.9 g/dL (12.0-16.0); Mean Corp Hgb Conc. 35.5 g/dL (33.0-37.0); Mean Corpuscular Hgb 32.7 pg (27.0-31.0); Mean Corpuscular Volume 92.1 fL (81.0-99.0); Mean Platelet Volume 9.3 fL (7.4-10.4); Platelet Count 100 10^3/uL (130-400); Red Blood Cell Count 3.03 10^6/uL (4.20-5.40); Red Cell Dist. Width 20.7 % (11.5-14.5); White Blood Cell Count 12.8 10^3/uL (4.8-10.8)
[2024-06-19 12:02] LABS: ALT (SGPT) 90 U/L (0-35); AST (SGOT) 244 U/L (14-36); Albumin 2.9 g/dl (3.5-5.0); Alkaline Phosphatase 201 U/L (38-126); Blood Urea Nitrogen 12 mg/dl (7-17); Carbon Dioxide 22 mmol/L (22-30); Chloride 105 mmol/L (98-107); Estimated Creatinine Clearance > 125 ml/min; Glucose 120 mg/dl (70-99); Phosphorus 3.6 mg/dl (2.5-4.5); Potassium 3.7 mmol/L (3.5-5.1); Sodium 134 mmol/L (135-145); Total Bilirubin 5.4 mg/dl (0.2-1.3); Total Protein 6.8 g/dl (6.3-8.2); eGFR > 60.00
--- NOTE | 2024-06-19 13:18 | PN.CDI ---
CDI
- -
CDI:
Physician Documentation Request
Admit Date: 06/17/24 18:24
Dear Doctor Do,
Patient admitted with decompensated alcoholic cirrhosis.
Na levels documented below:
Laboratory Tests
06/17/24 06/19/24
13:44 11:02
Sodium 132 L 134 L
Based on the above, could you clarify in the progress notes, the appropriate diagnosis, if significant, that supports the above abnormalities and additional evaluation, monitoring and/or treatment rendered:
Hyponatremia
Insignificant abnormal lab findings
Other
Use of terms such as suspected, likely, concern for, or probable (associated with a specific diagnosis that is being evaluated, monitored, or treated as if it exists) are acceptable and can be coded in the inpatient setting, when documented at the
time of discharge.
Thank you,
Alicia STALEYN,RN,CCDS
CDI Specialist
Available via tiger text
Please use your independent medical judgment in providing your response.
--- NOTE | 2024-06-19 14:24 | CM ---
Chart reviewed and case management social worker met with patient plan is to home when stable, patient has denied the need for [facility] treatment options. Patient's son is currently with father and grandmother while patient is in the hospital.
Plan; Home when stable, no needs.
--- NOTE | 2024-06-19 14:59 | W.PN.GI.CBS2 ---
Addendum entered and electronically signed by Lana Gallardo MD 06/19/24 16:09:
I saw and examined the patient.
The nuclear medical technologist note was reviewed and I agree with the note.
39-year-old female with past medical history of ADHD, anxiety, status post gastric Rekha-en-Y bypass 2011, perforated DU, chronic alcohol use with recent alcohol hepatitis admitted to [facility] and was started on steroids looks like on 06/09
or 06/10 and was just discharged about 2 to 3 days ago and she says that she started to feel worse again especially with increasing lower extremity edema and dyspnea on exertion and abdominal distention and presents to [place]. Apparently she also
had an MRCP/ CT done at [place] for gallbladder distention and was ruled out for cholecystitis. Currently denies any rectal bleeding or melena no nausea or vomiting. She did have an endoscopy and a colonoscopy in 2017 as described below at that
time no varices were noted and she did have anastomotic ulcers. She has been on a PPI and denies use of NSAIDs.
Paracentesis was canceled today-no adequate fluid
plan
2 g sodium diet
Continue Lasix/Aldactone
Continue prednisolone started for alcoholic hepatitis at [facility] 06/09. Total bilirubin trending down now
Need to obtain official records from [facility]
Advised on strict alcohol abstinence
Advised to follow-up with GI/hepatology as outpatient with repeat LFT/ PT/INR/BMP in 1 week
EGD for variceal screening as outpatient
For further workup for liver cirrhosis/follow-up as outpatient
No further recommendation at this point. GI will sign off.
Original Note:
Today's Communication / Plan
-
Consider increasing Lasix dose
Assessment / Plan
-
Patient is a 39-year-old female with a past medical history of gastric bypass (2011), ADHD, anxiety, perforated duodenal ulcer s/p metal suture, internal hemorrhoids, GERD, chronic alcohol use disorder presenting with lower extremity edema and
worsening jaundice. Patient recently presented to [facility] with jaundice, dark urine, and telangiectasia and was diagnosed with acute alcoholic hepatitis. Prednisone was started on 06/09 at [place].
Abdomen ultrasound here suggests splenomegaly, hepatomegaly, the possibility of liver cirrhosis and probable superimposed hepatocellular disease. Also small amount of ascites present within the right and left lower quadrant.
No TTP. No fever overnight/ today. Peripheral pitting edema 2+ .
Recommendations:
-Day 11 of steroid. Prednisone changed to prednisolone yesterday.
-Continue MSAS protocol
-Continue spironolactone. Peripheral edema does not seem to have improved. Consider increasing Lasix dose
- Continue Protonix
- Paracentesis cancelled due to minimal ascites fluid.
- She will need an eventual endoscopy for esophageal varices surveillance as outpatient. Will also need HCC surveillance every 6 months including AFP and ultrasound every 6 months.
- Advised patient regarding alcohol abstinence
- Patient is clear for discharge from GI standpoint. Can follow-up wit Dr. Verma as outpatient.
Subjective
Subjective
Date of Service: June 19, 2024
Objective
Data Reviewed
Laboratory Data:
Laboratory Results
06/19/24 11:02
06/19/24 11:02
Laboratory Results
PT 20.5 Sec (11.4-14.6) H 06/18/24 18:05
INR 1.74 06/18/24 18:05
Phosphorus 3.6 mg/dl (2.5-4.5) 06/19/24 11:02
Magnesium 2.0 mg/dl (1.6-2.3) 06/19/24 11:02
Total Bilirubin 5.4 mg/dl (0.2-1.3) H 06/19/24 11:02
AST 244 U/L (14-36) H 06/19/24 11:02
ALT 90 U/L (0-35) H 06/19/24 11:02
Alkaline Phosphatase 201 U/L (38-126) H 06/19/24 11:02
Lipase 373 U/L (23-300) H 06/17/24 13:44
Vital Signs and I&O:
Vital Signs
Temp Pulse Resp BP Pulse Ox
98.5 F 106 14 113/69 97
06/19/24 09:20 06/19/24 09:20 06/19/24 09:20 06/19/24 09:20 06/19/24 09:20
I&O
06/18/24 06/19/24 06/20/24
06:59 06:59 06:59
Intake Total 720 / 720 1680 / 1680
Balance 720 / 720 1680 / 1680
[2024-06-19 15:00] VITALS: BP 109/69
[2024-06-19 23:05] VITALS: BP 114/67
[2024-06-20] MEDS: ATIVAN 1 MG PO (03:29)
[2024-06-20 07:08] VITALS: BP 112/69
--- NOTE | 2024-06-20 07:38 | W.PN.HOSP.TC ---
Today's Communication/Plan
-
Discharge today
Assessment / Plan
Assessment / Plan
HPI: 39-year-old female past medical history of gastric bypass in 2011, ADHD, history of perforated ulcer 5 years ago, GI bleeding secondary to anastomotic ulcer in the duodenum, internal hemorrhoids, GERD, anxiety, alcohol use, tobacco use
presenting with complaint of swelling of the abdomen and legs today since yesterday. She complains of pains in her legs and intermittent pain in her belly. She feels more short of breath than usual. She denies chest pain. She also think she is
more jaundiced than usual.
She was admitted at [facility] on 06/10 for jaundice. She was just released 3 days ago. She was found to have alcoholic hepatitis with CT scan showing hepatosplenomegaly/portal hypertension small amount of ascites. She had MRCP which was
negative. She received IV fluids, Zosyn, PPI with improvement. She also treated with prednisone with plan for eventual endoscopy.
She has not had any alcohol since the day prior to her admission to [place] on 06/10. She smokes socially. Denies marijuana or any other drugs.
# Abdominal ascites/peripheral edema secondary to decompensated alcoholic cirrhosis
Appreciate GI input, not enough abd fluid to drain
Lower extremity Dopplers negative for DVT
Started on Lasix/Aldactone, 2 gram Na diet, fluid restriction, trend creatinine
Discharge today
# Hyperbilirubinemia/jaundice
# Transaminitis secondary to worsening alcoholic hepatitis
-GI changed prednisone that was started at [place] to prednisolone, will need to be discharged on a prednisolone x 4 weeks (no taper per GI)
-Bilirubin and LFTs trending down
-Alcohol cessation counseling has been provided
#Leukocytosis
From steroid use
#Hyponatremia
Mild
Alcohol use disorder
-No alcohol use since 06/09
-Alcohol cessation counseling has been provided
Anxiety
-Resumed home Ativan as needed
History of Rekha-en-Y gastric bypass in 2011
History of perforated ulcer
History of GI bleeding secondary to anastomotic ulcer in the duodenum
-Continue Protonix
Chronic anemia secondary to anemia of chronic disease
-Continue ferrous sulfate
-Continue B12
-Trend hemoglobin
Thrombocytopenia secondary to cirrhosis
-Platelets stable
History of internal hemorrhoids
GERD
-Continue Protonix
Anxiety
ADHD
-Continue Vyvanse
History of tobacco use
-Social smoker
DVT prophylaxis�subcu heparin
Full code
Physical Exam
General: Obese, no acute distress
HEENT: Normocephalic, Atraumatic, EOMI, MMM, icteric sclerae, improved from prior
Respiratory: Clear to Auscultation bilaterally
Cardiac: Normal S1/S2, Regular Rate and Rhythm
GI: Soft, Nontender, mildly distended, no masses guarding or rebound
Extremities: No Clubbing, Cyanosis
Bilateral lower extremity edema noted
Neuro: Nonfocal/Grossly Intact
Psych: Calm, Cooperative
Derm: Scattered ecchymosis, mildly jaundice
Anticipated Discharge: Today
Subjective/Interval History
-
Date of Service: June 19, 2024
Reports abd pain. Abd and LE swelling improved. No fever, no vomiting.
Objective Data
-
Labs:
Laboratory Results
06/19/24
11:02
WBC 12.8 H
Hgb 9.9 L
Hct 27.9 L
Plt Count 100 L
Sodium 134 L
Potassium 3.7
Chloride 105
Carbon Dioxide 22
BUN 12
Creatinine 0.5 L
Glucose 120 H
Calcium 8.0 L
Total Bilirubin 5.4 H
AST 244 H
ALT 90 H
Alkaline Phosphatase 201 H
Vital Signs:
Vital Signs
Temp Pulse Resp BP Pulse Ox
98.3 F 94 18 109/69 96
06/19/24 15:00 06/19/24 15:00 06/19/24 15:00 06/19/24 15:00 06/19/24 15:00
I&O
06/18/24 06/19/24 06/20/24
06:59 06:59 06:59
Intake Total 720 / 720 1680 / 1680
Balance 720 / 720 1680 / 1680
[2024-06-20] MEDS: VITAMIN B1 100 MG PO (08:00)
[2024-06-20] MEDS: B COMPLEX w/VITAMIN C 1 CAPLET PO (08:00)
[2024-06-20] MEDS: THERAGRAN 1 TABLET PO (08:00)
[2024-06-20] MEDS: PROTONIX 40 MG PO (08:01)
[2024-06-20] MEDS: FOLVITE 1 MG PO (08:01)
[2024-06-20] MEDS: ALDACTONE 100 MG PO (08:01)
[2024-06-20] MEDS: EFFEXOR XR 75 MG PO (08:01)
[2024-06-20] MEDS: LASIX 40 MG PO (08:02)
[2024-06-20] MEDS: PRELONE 40 MG PO (08:03)
[2024-06-20] MEDS: HEPARIN 5000 UNITS SC (08:05)
[2024-06-20 08:41] LABS: ALT (SGPT) 94 U/L (0-35); AST (SGOT) 230 U/L (14-36); Albumin 2.7 g/dl (3.5-5.0); Alkaline Phosphatase 204 U/L (38-126); Blood Urea Nitrogen 11 mg/dl (7-17); Calcium 8.1 mg/dl (8.4-10.2); Carbon Dioxide 23 mmol/L (22-30); Chloride 108 mmol/L (98-107); Estimated Creatinine Clearance > 125 ml/min; Glucose 80 mg/dl (70-99); Potassium 3.5 mmol/L (3.5-5.1); Sodium 137 mmol/L (135-145); Total Bilirubin 4.5 mg/dl (0.2-1.3); Total Protein 6.4 g/dl (6.3-8.2); eGFR > 60.00
--- NOTE | 2024-06-20 09:31 | W.DCSUMMARY ---
Discharge Summary
Discharge Data
Date of Admission: 06/17/24
Date of Discharge: 06/20/24
-
Pending Results: No
Hospital Course
Discharge diagnosis:
Abdominal ascites and bilateral lower extremity edema secondary to decompensated alcoholic liver disease
Hyperbilirubinemia/jaundice
Alcoholic hepatitis
Leukocytosis
Hyponatremia
Alcohol use disorder
Anxiety
History of Rekha-en-Y gastric bypass in 2011
History of perforated ulcer
History of GI bleeding secondary to anastomotic ulcer in the duodenum
Chronic anemia secondary to anemia of chronic disease
Thrombocytopenia secondary to cirrhosis
History of internal hemorrhoids
Gastroesophageal reflux disease
Consults: GI
Hospital course:
39-year-old female past medical history of gastric bypass in 2011, ADHD, history of perforated ulcer 5 years ago, GI bleeding secondary to anastomotic ulcer in the duodenum, internal hemorrhoids, GERD, anxiety, alcohol use, and tobacco use, was
admitted for abdominal ascites and bilateral lower extremity edema secondary to decompensated alcoholic liver disease. She was admitted at [facility] on 06/10 for jaundice. She was released 06/14. She was found to have alcoholic hepatitis
with CT scan showing hepatosplenomegaly/portal hypertension small amount of ascites. She had MRCP which was negative. She received IV fluids, Zosyn, PPI with improvement. She also treated with prednisone with plan for eventual endoscopy.
Patient was seen in conjunction with GI here. Abdominal ultrasound revealed there was not enough ascites to drain. Lower extremity Dopplers were negative for DVT. She was started on Lasix 40 mg daily, Aldactone 100 mg daily, 48 ounce fluid
restriction, 2 g low-sodium diet. Her abdominal ascites and lower extremity improved.
Patient's bilirubin improved, her LFTs trended down. GI changed her prednisone 40 mg daily to prednisolone. GI recommends continuing prednisolone 40 mg daily for 4 weeks. She has been instructed to follow-up with GI in the office in 3-4 weeks.
She needs to follow-up with her PCP in 1 week. She needs to have repeat CMP, PTT/INR checked with her PCP in 1 week. She has been counseled to permanently abstain from drinking alcohol. She reports understanding.
Disposition: Home self-care
Discharge planning: Required 41 minutes
Discharge Plan
-
Patient Disposition: Home (Routine Discharge)
Discharge Diagnosis/Procedures: Acute alcoholic hepatitis, jaundice, hepatosplenomegaly, portal hypertension, alcohol use disorder
Condition: Fair
Diet: 2 Gram Sodium and Restrict fluids to 48 oz
Activity: As tolerated
Driving Restrictions: As prior to admission
Blood Work: CMP/PT/INR with your primary care provider in 1 week
Activity Restrictions/Additional Instructions:
Please continue to abstain from drinking alcohol.
Follow-up with GI in the office in 3-4 weeks.
Continue taking your prednisolone until seen by GI.
They will give you further directions regarding your prednisolone dosage.
Please follow-up with your primary care provider in 1 week.
You will need to get repeat blood work done with your primary care provider.
Referrals:
Deysi Verma MD [Active] - in three to four weeks
Louisa Tripathi PA-C [Family Provider] - in one week
Prescriptions:
New
furosemide 40 mg Tablet
40 mg PO DAILY Qty: 30 0RF
spironolactone 50 mg Tablet
100 mg PO DAILY Qty: 60 0RF
prednisolone 15 mg/5 mL solution
40 mg PO DAILY 28 Days Qty: 373.332 0RF
Continued
pantoprazole 40 MG tablet,delayed release (DR/EC)
40 mg PO DAILY Qty: 30 0RF
thiamine HCl (vitamin B1) 100 mg Tablet
100 mg PO DAILY
therapeutic multivitamin Tablet
1 tab PO DAILY
dextroamphetamine-amphetamine 30 mg Tablet
30 mg PO BID
folic acid 1 mg Tablet
1 mg PO DAILY
diphenhydramine-acetaminophen [Tylenol PM Extra Strength] 25-500 mg Tablet
1 tab PO HSPRN PRN (Reason: mild pain)
vitamin B complex Capsule
1 cap PO DAILY
venlafaxine 75 mg Tablet Extended Release 24hr
75 mg PO DAILY
Ativan 1 mg
1 mg PO PRN (Reason: anxiety)
Patient Comments:
Pt reports 'I can't remember the last time I took it at home.'
Discontinued
prednisone 20 mg Tablet
40 mg PO DAILY
Discharge Orders:
Discharge Patient (As Directed); Ordered 06/20/24
Ordered By: Bert Muñoz
Discharge Date and Time
Discharge Date/Time: 06/20/24 11:41
Print Language: AUSTRIAN
[2024-06-20] MEDS: KCL 20 MEQ PO (09:42)
== END 2024-06-20 11:41 | disposition home or self-care (01) | DRG 433 ==
LOC: 4 WEST ACU 18:24
PROVIDERS: Emergency Medicine; ADMITTING PHYSICIAN Hospitalist; ATTENDING PHYSICIAN Family Medicine; CONSULT PHYSICIAN Internal Medicine Gastroenterology; EMERGENCY PHYSICIAN Student in an Organized Health Care Education/Training Program; FAMILY PHYSICIAN Physician Assistant Medical
DX: K70.31 Alcoholic cirrhosis of liver with ascites (principal); E87.1 Hypo-osmolality and hyponatremia; K76.6 Portal hypertension; K70.11 Alcoholic hepatitis with ascites; F90.9 Attention-deficit hyperactivity disorder, unspecified type; K21.9 Gastro-esophageal reflux disease without esophagitis; F41.9 Anxiety disorder, unspecified; R60.0 Localized edema; D63.8 Anemia in other chronic diseases classified elsewhere; D69.59 Other secondary thrombocytopenia; D72.829 Elevated white blood cell count, unspecified; F10.10 Alcohol abuse, uncomplicated; R16.2 Hepatomegaly with splenomegaly, not elsewhere classified; F17.200 Nicotine dependence, unspecified, uncomplicated; Z79.899 Other long term (current) drug therapy; Z98.84 Bariatric surgery status; Z87.11 Personal history of peptic ulcer disease
CPT/HCPCS: 71046; 76700; 76705; 80053; 81003; 82077; 82105; 83690; 83735; 84100; 84703; 85025; 85027; 85610; 93005; 93970; 96374; 99285; 99406

== ENCOUNTER → 2024-08-27 06:17 | Day surgery (SDC) | payer OTHER, SELFPAY | LOC: GI 06:17 | PROVIDERS: ATTENDING PHYSICIAN Internal Medicine Gastroenterology; FAMILY PHYSICIAN Family Medicine | DX: K74.60 Unspecified cirrhosis of liver (principal); K76.6 Portal hypertension; K31.89 Other diseases of stomach and duodenum; Z98.0 Intestinal bypass and anastomosis status | CPT/HCPCS: 43235 ==

== ENCOUNTER 2024-10-12 20:20 | Inpatient (IN) | payer OTHER, SELFPAY ==
[2024-10-12 17:31] VITALS: BP 141/87
[2024-10-12 18:04] LABS: % Basophils 0.3 % (0-2); % Eosinophils 0.7 % (0-6); % Immature Granulocytes 4.1 % (0-0.5); % Lymphocytes 26.5 % (20.5-51.1); % Monocytes 14.2 % (1.7-9.3); % Neutrophils 54.2 % (42.2-75.2); Absolute Eosinophils 0.1 10^3/uL (0-0.7); Absolute Immature Granulocytes 0.5 10^3/uL (0-0.05); Absolute Lymphocytes 3.1 10^3/uL (1.2-3.4); Absolute Monocytes 1.7 10^3/uL (0.1-0.6); Absolute Neutrophils 6.3 10^3/uL (1.4-6.5); Hematocrit 25.8 % (37.0-47.0); Hemoglobin 8.9 g/dL (12.0-16.0); Mean Corp Hgb Conc. 34.5 g/dL (33.0-37.0); Mean Corpuscular Hgb 34.6 pg (27.0-31.0); Mean Corpuscular Volume 100.4 fL (81.0-99.0); Nucleated Red Blood Cells % 0.2 %; Red Blood Cell Count 2.57 10^6/uL (4.20-5.40); Red Cell Dist. Width 21.1 % (11.5-14.5); White Blood Cell Count 11.7 10^3/uL (4.8-10.8)
[2024-10-12 18:14] LABS: ALT (SGPT) 78 U/L (0-35); AST (SGOT) 180 U/L (14-36); Albumin 3.3 g/dl (3.5-5.0); Alkaline Phosphatase 212 U/L (38-126); Blood Urea Nitrogen 15 mg/dl (7-17); Calcium 8.8 mg/dl (8.4-10.2); Carbon Dioxide 24 mmol/L (22-30); Chloride 104 mmol/L (98-107); Glucose 118 mg/dl (70-99); Lipase 336 U/L (23-300); Potassium 3.6 mmol/L (3.5-5.1); Sodium 138 mmol/L (135-145); Total Protein 7.7 g/dl (6.3-8.2); eGFR > 60.00
[2024-10-12 18:17] LABS: Platelet Count 88 10^3/uL (130-400)
[2024-10-12 18:21] LABS: NT-proBNP 456 pg/ml
--- NOTE | 2024-10-12 18:32 | ED.GENMED ---
History of Present Illness
General
Chief Complaint: Swelling
Source: patient
Exam Limitations: none
Time Seen by Provider: 10/12/24 18:18
History of Present Illness
History of Present Illness:
This is a 39 year old female that comes in with c/o bilateral leg swelling. State that she has had this on and off swelling of her legs. States that before she ran out of her Spironolactone for a few weeks. States that she did start
back on this. States that she started to not feel well before Thanks and was in bed for a couple of days and the swelling started to go down. Know her legs and feet and even her groin are swollen. Denies any fever, chills, chest pain, SOB, abd
pain, nausea, vomiting, diarrhea, headache, dizziness, urinary burning.
Past History
Past History
ED Past Medical History: Psychiatric (Anxiety, Depression, ) and Other (alcoholic hepatitis, Cirrhosis of the liver, Ulcers, Iron def anemia, )
ED Past Surgical History: Orthopedic (Jaw surgery) and Other (gastric bypass, Surgery for perforated ulcer)
Social History
Tobacco: Smoker
Alcohol: Chronic alcoholic (patient denies this at this time)
Drug: None
Personal:
Living: with family
Employment: Employed
Review of Systems
Review of Systems
All Other Systems: ROS reviewed and negative except as documented in HPI and ROS
Constitutional: Reports no symptoms; Denies fever or chills
EENT: Reports no symptoms
Respiratory: Reports no symptoms; Denies cough or trouble breathing
Cardiac: Reports no symptoms; Denies chest pain
ABD/GI: Reports no symptoms; Denies abdominal pain, nausea, vomiting or diarrhea
: Reports no symptoms; Denies dysuria, frequency or urgency
Musculoskeletal: Reports edema (Bilateral leg swelling into groin)
Skin: Reports no symptoms
Neurological: Denies dizzy or headache
Psychiatric: Reports no symptoms
Phy Exam
General Physical Exam
General Presentation: no apparent distress
General age: appears stated age
General Skin: warm, dry and other (Jaundice)
General Habitus: normal
General Mental: alert
General Hydration: appears well hydrated
ENT Exam
ENT Exam: TM's normal, pharynx normal and neck supple
Eye Exam
Eye Exam: EOMI and other (sclera jaundice)
Cardiovascular Exam
Cardiovascular Exam: regular rate/rhythm and normal peripheral pulses
Pulmonary Exam
Pulmonary Exam: lungs clear, no respiratory distress, no rales, chest non tender, no crackles, no rhonchi, no wheezing and no cough
Gastrointestinal Exam
Gastrointestinal Exam: normal bowel sounds, non tender, soft, no organomegaly, no pulsatile mass and ascites
Musculoskeletal Exam
Musculoskeletal Exam: full ROM and edema (Bilateral leg edema from feet into thigh and groin, Pitting edema. )
Skin Exam
Skin Exam: warm/dry, jaundice and other (pimple like lesion noted on the face)
Psychiatric Exam
Psychiatric Exam: normal mood/affect
Course
Orders/Labs/Results
Orders:
Orders
10/12/24 17:44
Complete Blood Count/With Diff Urgent
Comprehensive Metabolic Panel Urgent
Lipase Urgent
NT-proBNP Urgent
10/12/24 18:31
US Abdomen Complete/Upper Urgent
Comment: History of cirrhosis, ascites
Reason For Exam: Elevated liver enzymes,
10/12/24 18:32
Furosemide [Lasix] 80 mg IV NOW STA
10/12/24 18:43
PTT Urgent
Prothrombin Time Urgent
10/12/24 18:48
Electrocardiogram (*1) Urgent
Reason for Study: Other
Other Reason for Exam: abnormal labs
EKG- Treatment ONCE
10/12/24 19:30
Urinalysis Reflex To Culture Urgent
Date Specimen was Collected: 10/12/24
Time Specimen was Collected: 19:30
Abnormal Lab Results
10/12/24
17:44
WBC 11.7 H 10^3/uL
(4.8-10.8)
RBC 2.57 L 10^6/uL
(4.20-5.40)
Hgb 8.9 L g/dL
(12.0-16.0)
Hct 25.8 L %
(37.0-47.0)
MCV 100.4 H fL
(81.0-99.0)
MCH 34.6 H pg
(27.0-31.0)
RDW 21.1 H %
(11.5-14.5)
Plt Count 88 L 10^3/uL
(130-400)
Abs Immat Gran (auto) 0.5 H 10^3/uL
(0-0.05)
Absolute Monos (auto) 1.7 H 10^3/uL
(0.1-0.6)
Immature Gran % 4.1 H %
(0-0.5)
Monocytes % 14.2 H %
(1.7-9.3)
Glucose 118 H mg/dl
(70-99)
Total Bilirubin 12.0 H mg/dl
(0.2-1.3)
AST 180 H U/L
(14-36)
ALT 78 H U/L
(0-35)
Alkaline Phosphatase 212 H U/L
(38-126)
Albumin 3.3 L g/dl
(3.5-5.0)
Lipase 336 H U/L
(23-300)
10/12/24 17:44
10/12/24 17:44
Leukocytosis. H/H low. Anemia, thrombocytopenia, hyperglycemia, Total omid elevated at 12, AST/ALT elevation. Alk phos elevation. Albumin slightly low. Lipase slightly elevated. Pro-BNP 456
Vital Signs
Initial and Last Documented VS:
Initial Vital Signs
Temp Pulse Resp BP Pulse Ox
98.7 F 110 16 141/87 100
10/12/24 17:31 10/12/24 17:31 10/12/24 17:31 10/12/24 17:31 10/12/24 17:31
Last Documented Vital Signs
Temp Pulse Resp BP Pulse Ox
98.7 F 105 16 119/66 100
10/12/24 17:31 10/12/24 18:47 10/12/24 17:31 10/12/24 18:47 10/12/24 18:54
MDM/Problems Addressed
Differential Diagnosis Includes:
Cirrhosis of the liver, Acities
MDM/Problems Addressed:
This is a 39 year old female that comes in with c/o bilateral leg swelling into her groin. States that it is getting worse. states that she takes Lasix and Spironolactone.
Will get labs, US and explained to patient that she would be admitted.
Hospitalist notified about admission.
Chronic conditions affecting care:
Cirrhosis of the liver,
Acute Exacerbation and/or Progression of Chronic Illness:
Cirrhosis of the liver
*Radiology
Radiology exam reviewed: radiology read reviewed (US-gallbladder sludge without convincing sonographic evdience for acute cholecystitis. Increased echogenicity in the lver, compatible with underlying Hepatocellular disease, which most commonly
related to fatty infiltration of the liver. Splenomegaly. )
*Pulse Oximetry
Patient hypoxic: no
*EKG
Interpreted by ED Provider?: Yes
*Transport Company Manager Interpretation
Rate: Transport Company Manager- N/A
*Critical Care Note
Total Time (30-74mins, 75-104mins- exclusive of procedures): Not Applicable
ED Attending Note
-
Portions of this chart may have been created with voice recognition software.� Occasional wrong word or��sound alike� substitutions may have occurred due to the inherent limitations of voice recognition software.
Discharge Plan
Departure
Patient Disposition: Admit
Date of Disposition: 10/12/24
Time of Disposition: 19:36
Admit to: Med/Surg
Presentation/result/management discussed w/ accepting MD/DO: Hospitalist
Patient with high blood pressure during this ER visit?: No
Condition: Good
Covid-19: Not Applicable
Discharge Problem:
Jaundice, Bilateral leg edema, Elevated liver enzymes
Prescriptions:
No Action
pantoprazole 40 MG tablet,delayed release (DR/EC)
40 mg PO DAILY Qty: 30 0RF
thiamine HCl (vitamin B1) 100 mg Tablet
100 mg PO DAILY
therapeutic multivitamin Tablet
1 tab PO DAILY
dextroamphetamine-amphetamine 30 mg Tablet
30 mg PO BID
folic acid 1 mg Tablet
1 mg PO DAILY
diphenhydramine-acetaminophen [Tylenol PM Extra Strength] 25-500 mg Tablet
1 tab PO HSPRN PRN (Reason: mild pain)
vitamin B complex Capsule
1 cap PO DAILY
venlafaxine 75 mg Tablet Extended Release 24hr
75 mg PO DAILY
Ativan 1 mg
1 mg PO PRN (Reason: anxiety)
Patient Comments:
Pt reports 'I can't remember the last time I took it at home.'
furosemide 40 mg Tablet
40 mg PO DAILY Qty: 30 0RF
spironolactone 50 mg Tablet
100 mg PO DAILY Qty: 60 0RF
prednisolone 15 mg/5 mL solution
40 mg PO DAILY 28 Days Qty: 373.332 0RF
Referrals:
Louisa Tripathi PA-C [Family Provider] -
Interventions
Interventions:
*Risk Screen - Suicide Last Done: 10/12/24 17:31
*General Assessment Last Done: 10/12/24 17:31
*ED COVID-19 Vaccine History Last Done: 10/12/24 17:31
ED- Cardiac Assessment Last Done: 10/12/24 18:53
ED- Pulmonary Assessment Last Done: 10/12/24 18:53
ED-Skin Assessment Last Done: 10/12/24 18:53
Discharge Date and Time
Print Language: SETSWANA
[2024-10-12] MEDS: LASIX 80 MG IV (18:47)
[2024-10-12 19:52] LABS: Urine Albumin Negative (Neg - Trace); Urine Bilirubin Negative (Negative); Urine Character Clear (Clear); Urine Color Yellow; Urine Glucose Negative (Negative); Urine Ketone Negative (Negative); Urine Leukocyte Negative (Negative); Urine Nitrite Negative (Negative); Urine Occult Blood Negative (Negative); Urine Specific Gravity 1.015 (<1.030); Urine Urobilinogen 1+ (Neg - 1+)
[2024-10-12 20:05] LABS: INR 2.26; PT 25.1 Sec (11.4-14.6)
--- NOTE | 2024-10-12 20:17 | HPS.HSE ---
Family Physician
-
Family Physician: Louisa Tripathi PA-C
Chief Complaint
-
bilateral leg swelling on and off
History of Present Illness
39F HX Gastric bypass in 2011, ADHD, HX perforated ulcer 5 years ago, GIB due to anastomotic ulcer in the duodenum, internal hemorrhoids, GERD, anxiety, ETOH use disorder, seen at ER
- bilateral leg swelling on and off swelling of her legs
- she ran out of her Spironolactone for a few weeks then she start back
- legs and feet and even her groin are swollen.
Reports still drinking cocktail but less amount
last cocktail drink was last night
ROS
Denies any fever, chills, chest pain, SOB, abd pain, nausea, vomiting, diarrhea, headache, dizziness, urinary burning.
Medical History
Past Medical History
Past Medical History: Reports Other (gastric bypass in 2011, ADHD, history of perforated ulcer 5 years ago, GI bleeding secondary to anastomotic ulcer in the duodenum, internal hemorrhoids, GERD, anxiety, alcohol use, tobacco use)
Past Surgical History: Reports Other (Rekha-en-Y gastric bypass, jaw surgery)
Social History
Tobacco: Smoker
Alcohol: Former
Drug: None
Family History
Family History: Not pertinent
Allergies / Home Medications
Allergies reflects when Allergies were last updated in [facility].
Home Medications with original date entered in [facility]
Allergy/Medication List:
Allergies
Allergy/AdvReac Type Severity Reaction Status Date / Time
No Known Allergies Allergy Verified 06/17/24 13:30
Home Medications
acetaminophen 500 mg tablet (Tylenol Extra Strength) 500 mg PO DAILYPRN PRN pain 09/06/17
lisdexamfetamine 20 mg capsule (Vyvanse) 20 mg PO DAILY 09/06/17
cyanocobalamin (vitamin B-12) 1,000 mcg tablet 1,000 mcg PO DAILY #30 tabs 09/07/17
ferrous sulfate 325 mg (65 mg iron) tablet (Feosol) 325 mg PO DAILY #60 tabs 09/07/17
pantoprazole 40 mg tablet,delayed release 40 mg PO DAILY #30 tabs 09/07/17
hydrocortisone acetate 25 mg rectal suppository 25 mg TX HSPRN PRN Hemorroids #30 supp 09/08/17
Review of Systems
-
History Source: Patient
A 12 point ROS was completed and negative except as noted: Yes
Constitutional: Reports No Symptoms
EENT: Reports No Symptoms
Respiratory: Reports No Symptoms
Cardiac: Reports No Symptoms
Abdomen/GI: Reports See HPI
: Reports No Symptoms
Musculoskeletal: Reports Edema
Skin: Reports No Symptoms
Neurological: Reports No Symptoms
Endocrine: Reports No Symptoms
Hematologic/Lymphatic: Reports No Symptoms
Psych: Reports No Symptoms
Physical Exam
Vital Signs
Vital Signs
Temp Pulse Resp BP Pulse Ox
98.7 F 106 16 119/66 100
10/12/24 17:31 10/12/24 19:50 10/12/24 19:50 10/12/24 18:47 10/12/24 19:50
Physical Exam
General: Well Developed, Well Nourished and No Apparent Distress
HEENT: NormoCephalic, Moist mucous membranes, Atraumatic and Other (icteric sclera ); No Anicteric
Respiratory: Clear
Cardiac: S1/S2 and Regular Rhythm; No Murmur or Rub
GI: Soft, Non Distended, Normal Bowel Sounds and Tender; No Organomegaly
Rectal: Deferred by Provider
Musculoskeletal: No Clubbing and No Cyanosis
Skin: No Rash
Neuro: Nonfocal/grossly intact
Laboratory Results
-
10/12/24 17:44
10/12/24 17:44
Laboratory Results
Total Bilirubin 12.0 mg/dl (0.2-1.3) H 10/12/24 17:44
AST 180 U/L (14-36) H 10/12/24 17:44
ALT 78 U/L (0-35) H 10/12/24 17:44
Alkaline Phosphatase 212 U/L (38-126) H 10/12/24 17:44
Lipase 336 U/L (23-300) H 10/12/24 17:44
Data Reviewed
-
Lab Data: Labs Reviewed by me
Old Records: Reviewed
Impression/Plan
-
Vital Signs
Temp Pulse Resp BP Pulse Ox
98.7 F 106 16 119/66 100
10/12/24 17:31 10/12/24 19:50 10/12/24 19:50 10/12/24 18:47 10/12/24 19:50
Laboratory Tests
06/19/24 06/20/24 10/12/24
11:02 06:20 17:44
WBC 12.8 H 11.7 H
Hgb 9.9 L 8.9 L
MCV 100.4 H
Plt Count 100 L 88 L
Creatinine 0.4 L 0.7
Total Bilirubin 4.5 H 12.0 H
AST 230 H 180 H
ALT 94 H
Alkaline Phosphatase 204 H 212 H
Albumin 2.7 L 3.3 L
Leukocyte Esterase Rfl NEG
08/27/24 EGD
- Normal esophagus.
- Rekha-en-Y gastrojejunostomy.
- Portal hypertensive gastropathy.
- Normal examined jejunum.
- No specimens collected.
Last hospitalist admission:Date of Admission: 06/17/24 -Date of Discharge: 06/20/24
Abdominal ascites and bilateral lower extremity edema secondary to decompensated alcoholic liver disease
Hyperbilirubinemia/jaundice
Alcoholic hepatitis
ASSESSMENT & PLAN
Pending Rx reconciliation
Anasarca due to expanded volume , 3rd spacing with worsening peripheral edema
Ran out of Aldactone and Lasix vs. noncompliance with diuretics
Decompensated alcoholic cirrhosis HX with synthetic dysfunction such as hypoalbuminemia
No falpping tremor
- check NH3
- check INR
- Resume Lasix /Aldactone 40/100 - hold for BP < 100
- 2 gram Na diet
- fluid restriction 40 Oz
- GI consult
Suspect current EOH use
Jaundice due to worsening hyperbilirubinemia
Trending down transaminitis
HX alcoholic hepatitis
- Pending MELD score due to pending INR
- Trend LFTs
Tachycardia
Still use ETOH but report less amount ???
Alcohol use disorder HX
- Pending MELD score
- Alcohol cessation counseling has been provided
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
Relatively stable Platelets but trending down.
- No active bleeding
- trend Platelets
Leukocytosis : mild
No longer on steroid
- trend WCC
Anxiety HX
Pending Rx reconciliation
Known HX
HX Rekha-en-Y gastric bypass in 2011
HX perforated ulcer
HX GIB secondary to anastomotic ulcer in the duodenum: continue Protonix
Chronic anemia due to anemia of chronic disease on : Continue B12
GERD: on Protonix
ADHD: continue Vyvanse
HX internal hemorrhoids
HX tobacco use: Social smoker
DVT Px: SCD
Full code
IP TLM
[2024-10-12 21:17] LABS: Alcohol None Detected; GGTP 79 U/L (12-43); Magnesium 1.8 mg/dl (1.6-2.3); Phosphorus 3.9 mg/dl (2.5-4.5)
[2024-10-12 21:19] LABS: B-Hydroxybutyrate 0.17 mmol/L (0.02-0.27)
[2024-10-12 21:23] LABS: Amphetamines Positive (Negative); Barbiturates Negative (Negative); Benzodiazepines Negative (Negative); Buprenorphine Negative (Negative); Cocaine Negative (Negative); Marijuana Negative (Negative); Methadone Negative (Negative); Methamphetamines Negative (Negative); Opiates Negative (Negative); Phencyclidine Negative (Negative); Tricyclic Antidepressants Negative (Negative)
[2024-10-12 21:45] LABS: Fentanyl, Urine Negative (Negative)
[2024-10-12 22:02] LABS: Ammonia 62 umol/L (9-30)
[2024-10-13] VITALS (16 sets, daily range): BP systolic 94–121; BP diastolic 48–68; BMI 33.5; BMI 31.3
[2024-10-13] MEDS: FLUSH (NSS) 1 FLUSH IV (02:24)
[2024-10-13 05:58] LABS: Hematocrit 24.7 % (37.0-47.0); Hemoglobin 8.5 g/dL (12.0-16.0); Mean Corp Hgb Conc. 34.4 g/dL (33.0-37.0); Mean Corpuscular Hgb 34.7 pg (27.0-31.0); Mean Corpuscular Volume 100.8 fL (81.0-99.0); Mean Platelet Volume 9.4 fL (7.4-10.4); Platelet Count 78 10^3/uL (130-400); Red Blood Cell Count 2.45 10^6/uL (4.20-5.40); White Blood Cell Count 9.5 10^3/uL (4.8-10.8)
[2024-10-13 06:19] LABS: ALT (SGPT) 71 U/L (0-35); AST (SGOT) 180 U/L (14-36); Albumin 2.8 g/dl (3.5-5.0); Alkaline Phosphatase 197 U/L (38-126); Blood Urea Nitrogen 15 mg/dl (7-17); Calcium 8.4 mg/dl (8.4-10.2); Carbon Dioxide 28 mmol/L (22-30); Chloride 106 mmol/L (98-107); Direct Bilirubin 5.9 mg/dl (0.0-0.4); Estimated Creatinine Clearance 112 ml/min; Glucose 96 mg/dl (70-99); Lipase 353 U/L (23-300); Potassium 3.8 mmol/L (3.5-5.1); Sodium 141 mmol/L (135-145); Total Bilirubin 9.1 mg/dl (0.2-1.3); Total Protein 6.7 g/dl (6.3-8.2); eGFR > 60.00
--- NOTE | 2024-10-13 07:40 | CON.GI ---
Addendum entered and electronically signed by Deysi Verma MD 10/13/24 13:53:
I saw and examined the patient.
The CREW CHIEF's note was reviewed and I agree with the note.
Comment: This is a 39-year-old female with alcohol hepatitis, alcohol cirrhosis, status post Rekha-en-Y gastric bypass, perforated DU status post repair, GI bleed from anastomotic ulcer rest as below and was treated in the past with prednisolone who
now presents with increasing lower extremity edema and abdominal distention. She has had ultrasound since admission which did not reveal any ascites she had ran out of her laxatives and has not really been taking them for the past 2 weeks or so and
she says that she recently restarted them. She also had relapsed and started to drink and was recently started on naltrexone to help with abstinence. prior EGD did not reveal any evidence of varices. no rectal bleeding or melena. No fevers or
chills. No nausea or vomiting she currently denies any abdominal pain.
Assessment and plan 1. Alcohol cirrhosis presents with increasing edema ultrasound negative for ascites she had ran out of her laxatives and has really not been compliant with her 2 g sodium diet either. Reinforced importance of compliance and
restarted on diuretics.
2. Alcohol hepatitis was treated with prednisolone in the past and recently had relapsed and was drinking again her last drink was about 2 weeks ago and was started on naltrexone to help with abstinence and abnormal LFTs are related to this with a
high DF but given her history of anastomotic ulcer including perforated DU in the past will hold off on prednisolone especially given her noncompliance
3. Anemia currently has no bleeding and endoscopy in August showed portal gastropathy no varices status post Rekha-en-Y
4. Family history of colon cancer- father, family history of colon polyps-mother and sister, her last colonoscopy was in 2016 which showed internal hemorrhoids and was otherwise normal but was suboptimal prep
Addendum entered and electronically signed by COLIN Munguia 10/13/24 10:09:
reviewed with US -- per study prior and hepatic vein patent on US completed in ER.
Original Note:
Consultation
-
Date/Time Consultation Requested: 10/12/241999
Date/Time Consultation Performed: 10/12/24829
Requesting Provider: COLIN Man
Performing Provider: COLIN Hernandez, Deysi Braun MD
Reason for Consultation: liver decompensation
Medical History
Chief Complaint / HPI
Chief Complaint: LE swelling
History of Present Illness:
Patient is a 39yo with hx of gastric bypass (2011), ADHD, anxiety, GI bleed with anatomic ulcer, perforated duodenal ulcer s/p surgical repair, internal hemorrhoids, GERD, ETOH hepatitis with admission in June 2024 with ascites. Per records she
was initially admitted to [place] with and given Prednisolone course. Unfortunately when seen in August she continued with ETOH use and now still admits to last drink 2 weeks ago (wine) and started Naltrexone. She did completed EGD in August
with prior Rekha-en-y gastrojejunostomy, portal HTN gastropathy, normal jejunum no varices seen. She had fibroscan last week and results pending. She was also recommended liver serology work up but not completed. No prior evaluation with
hepatology in past.
In review with patient she presents today with concern for continued fluid overload. She was taking Lasix 40mg and Aldactone 100mg but admits to stopping Aldactone with recent refill. Her weight for years was around 160lbs and recently has
gone up to 190 lb with fluid overload. She did have some weight loss with diuretics but then recently gained again. She also admits to occasional rectal bleeding with some red blood from hemorrhoids ? recently but now improved. No issues with
confusion or drowsiness noted. She otherwise denies issues with odynophagia, dysphagia, GERD, nausea, vomiting, abdominal pain, diarrhea, constipation. Denies current NSAID or Tylenol use. She is on some vitamin MVI, Iron, B12, folic acid but
denies other supplement use. AFP 6.92 in June. Last colonoscopy 2016 with fair prep and hemorrhoids.
Past Medical History
Past Medical History: GERD, Psychiatric (depression/anxiety) and Other (ETOH hepatitis with decompensation, GI ulcer, fatty liver )
Past Surgical History: Other (Gastric bypass)
Social History
Tobacco: Smoker
Alcohol: Chronic Alcoholic
Drug: None
Living: With Family (forepart rasper with son)
Employment: Not Employed
Family History
Family History: Other (father with colon CA, mother colon polyps, sister with polyps, family hx ETOH issue)
Allergies / Home Medications
Allergy/AdvReac Type Severity Reaction Status Date / Time
No Known Allergies Allergy Verified 10/12/24 17:36
�Medication �Instructions �Recorded
pantoprazole 40 mg tablet,delayed 40 mg PO DAILY #30 tabs 09/07/17
release
Ativan 1 mg PO PRN anxiety 06/17/24
dextroamphetamine-amphetamine 30 30 mg PO BID 06/17/24
mg tablet
diphenhydramine 25 1 tab PO HSPRN PRN mild pain 06/17/24
mg-acetaminophen 500 mg tablet
(Tylenol PM Extra Strength)
folic acid 1 mg tablet 1 mg PO DAILY 06/17/24
therapeutic multivitamin 1 tab PO DAILY 06/17/24
thiamine HCl (vitamin B1) 100 mg 100 mg PO DAILY 06/17/24
tablet
venlafaxine 75 mg tablet,extended 75 mg PO DAILY 06/17/24
release 24 hr
vitamin B complex 1 cap PO DAILY 06/17/24
furosemide 40 mg tablet 40 mg PO DAILY #30 tabs 06/20/24
prednisolone 15 mg/5 mL oral 40 mg (13.3333 mL) PO DAILY 28 06/20/24
solution days #373.332 mL
spironolactone 50 mg tablet 100 mg (2 x 50 mg) PO DAILY #60 06/20/24
tabs
Review of Systems
-
History Source: Patient and Family
Constitutional: Reports Weight Gain
EENT: Reports No Symptoms
Respiratory: Reports No Symptoms
Cardiac: Reports No Symptoms
Abdomen/GI: Reports Bloody Stools
: Reports No Symptoms
Musculoskeletal: Reports Edema and Other (denies LE numbness)
Neurological: Reports Weakness
Endocrine: Reports No Symptoms
Hematologic/Lymphatic: Reports Bleeding
Vital Signs
Temp Pulse Resp BP Pulse Ox
98.6 F 98 21 94/51 94
10/12/24 21:02 10/13/24 06:00 10/13/24 06:00 10/13/24 06:00 10/13/24 06:00
Physical Exam
Exam
General: Well Developed and Well Nourished
HEENT: Normocephalic and Other (jaundice )
Respiratory: Clear
Cardiac: Regular Rhythm
GI: Soft, Non Tender and Distended (mild)
Musculoskeletal: No Clubbing and No Cyanosis
Skin: Warm, Dry and Other (areas of bruising on face and extremities)
Neuro: Awake, Alert and AO x 3
Psych: Calm
Results
WBC 9.5 10^3/uL (4.8-10.8) 10/13/24 05:36
Hgb 8.5 g/dL (12.0-16.0) L 10/13/24 05:36
Hct 24.7 % (37.0-47.0) L 10/13/24 05:36
MCV 100.8 fL (81.0-99.0) H 10/13/24 05:36
Plt Count 78 10^3/uL (130-400) L 10/13/24 05:36
Absolute Neuts (auto) 6.3 10^3/uL (1.4-6.5) 10/12/24 17:44
PT 25.1 Sec (11.4-14.6) H 10/12/24 19:44
INR 2.26 10/12/24 19:44
APTT 44.0 Sec (23.4-35.0) H 10/12/24 19:44
Sodium 141 mmol/L (135-145) 10/13/24 05:36
Potassium 3.8 mmol/L (3.5-5.1) 10/13/24 05:36
Chloride 106 mmol/L (98-107) 10/13/24 05:36
Carbon Dioxide 28 mmol/L (22-30) 10/13/24 05:36
BUN 15 mg/dl (7-17) 10/13/24 05:36
Creatinine 0.7 mg/dL (0.6-1.0) 10/13/24 05:36
Calcium 8.4 mg/dl (8.4-10.2) 10/13/24 05:36
Total Bilirubin 9.1 mg/dl (0.2-1.3) H 10/13/24 05:36
AST 180 U/L (14-36) H 10/13/24 05:36
ALT 71 U/L (0-35) H 10/13/24 05:36
Alkaline Phosphatase 197 U/L (38-126) H 10/13/24 05:36
Lipase 353 U/L (23-300) H 10/13/24 05:36
Diagnostic Image Results:
1. Gallbladder sludge without convincing sonographic evidence for acute cholecystitis.
2. Increased echogenicity in the liver, compatible with underlying hepatocellular disease, which most commonly relates to fatty infiltration of the liver.
3. Splenomegaly.
Prior GI Procedures:
EGD: 08/2024 [facility] - Normal esophagus.
- Rekha-en-Y gastrojejunostomy.
- Portal hypertensive gastropathy.
- Normal examined jejunum.
- No specimens collected.
EGD 2016
- Normal esophagus.
- Z-line regular, 38 cm from the incisors.
- Rekha-en-Y gastrojejunostomy with gastrojejunal
anastomosis characterized by healthy appearing mucosa.
- Normal stomach. Biopsied.
- One non-bleeding superficial chronic anastomotic
duodenal ulcer with no stigmata of bleeding. Biopsied.
- Duodenal foreign body (metal suture) .
- Normal examined duodenum. Biopsied.
bx anastomic ulcer, neg H pylori
Colonoscopy: 2016 [facility]
- Preparation of the colon was fair. Liquid brown stool
in the entire examined colon. No blood seen.
- Non-bleeding internal hemorrhoids.
- The entire examined colon is normal.
- The examined portion of the ileum was normal.
- No specimens collected.
Assessment / Plan
-
Patient is a 39yo with hx of gastric bypass (2011), ADHD, anxiety, GI bleed with anatomic ulcer, perforated duodenal ulcer s/p surgical repair, internal hemorrhoids, GERD, ETOH hepatitis with admission in June 2024 with ascites. Per records she
was initially admitted to [place] with and given Prednisolone course. Unfortunately when seen in August she continued with ETOH use and now still admits to last drink 2 weeks ago (wine) and started Naltrexone. She did completed EGD in August
with prior Rekha-en-y gastrojejunostomy, portal HTN gastropathy, normal jejunum no varices seen. She had fibroscan last week and results pending. She was also recommended liver serology work up but not completed. No prior evaluation with
hepatology in past.
-fluid overload with LE edema
-ETOH abuse disorder with continued use
-recent ETOH hepatitis +/- cirrhosis with elevated LFT's and decompensated liver disease
-mild lipase elevation
-portal gastropathy on EGD
-coagulopathy
-anemia
-hypoalbuminemia
-thrombocytopenia
-rectal bleeding
-gallbladder sludge on imaging
-splenomegaly
other med problems:
-hx gastric bypss
-ADHD
-anxiety
-hx GI bleed, gastric ulcer with repair
-hx hemorrhoids
-GERD
-family hx colon CA/polyps
Recommendations:
Etiology of symptoms with concern for continued decompensation with ascites
current MELD 3.0 26 with DF 64.8
US as noted will add Doppler study to eval for PVT
cont Spironolactone 100mg and Lasix 40mg -- reviewed with patient need for compliance with medication and labwork
fibroscan pending
will give dose of vitamin K with coagulopathy
trend labs
stressed need to patient and family she must quit ETOH with severity of liver disease last ETOH 2 weeks ago
stressed good nutrition-- supplement added
will check hepatitis, iron studies, PALAK, AMA, SLA will need further OP serologies
pending hep serologies vaccinate to hep A and B if no immunity
eventual colonoscopy with family hx
Pt is scheduled 11/30 at 8:[address] Gallardo
reviewed will need hepatology evaluation -- inpatient if MELD and DF not improving vs OP follow up
family updated
-
-
Thank you for consultation and allowing me to participate in the patient's care. Please call the electrical electronics technician GI physician during the after hours with any questions or concerns.
[2024-10-13] MEDS: PROTONIX 40 MG PO (08:06)
[2024-10-13] MEDS: THIAMINE INJECTION 200 MG IV ×2 (08:06→22:46)
[2024-10-13] MEDS: LASIX 40 MG PO (08:06)
[2024-10-13] MEDS: FOLVITE 1 MG PO (08:06)
[2024-10-13] MEDS: ALDACTONE 100 MG PO (08:24)
--- NOTE | 2024-10-13 09:35 | W.PN.HOSP.TC ---
Today's Communication/Plan
-
See plan
Assessment / Plan
Assessment / Plan
Impression:
Presentation with generalized edema/anasarca and worsening jaundice
Alcoholic cirrhosis.
Alcohol induced hepatitis
Anasarca secondary to above and medication noncompliance.
Coagulopathy.
Chronic anemia
Chronic thrombocytopenia
Status post Rekha-en-Y bypass 2011
History of perforated duodenal ulcer
Severe alcohol use disorder.
Anxiety.
ADHD
Plan:
Presentation with generalized edema and anasarca due to medication noncompliance. Reports stopping diuretics about 2 weeks prior to presentation due to lack of prescription.
Ultrasound of the abdomen with no ascites
MELD 3.0 score 26
Hepatitis discriminant 69
Ammonia level 60 with no evidence of hepatic encephalopathy not on lactulose DEBEADER
Reinstated on 2 g sodium diet
Reinstated on Lasix and Aldactone
Follow LFT and ammonia level
Previously on corticosteroids for alcohol hepatitis, although at this point no clear indication especially with prior history of gastrointestinal bleeding.
Chronic anemia stable.
History of perforated duodenal ulcer.
EGD 08/27: Normal esophagus, Rekha-en-Y gastrojejunostomy, portal hypertensive gastropathy. Normal jejunum.
Continue PPI
Severe alcohol use disorder
Patient states attempting to quit drinking and has been started on naloxone.
Continue close monitoring for alcohol withdrawal with MSAS
Continue thiamine
ADHD
On dextromethorphan�amphetamine DEBEADER
Anticipated Discharge: 24 - 48 hours
Subjective/Interval History
-
Date of Service: October 13, 2024
Objective Data
-
Labs:
Laboratory Results
10/13/24
05:36
WBC 9.5
Hgb 8.5 L
Hct 24.7 L
Plt Count 78 L
Sodium 141
Potassium 3.8
Chloride 106
Carbon Dioxide 28
BUN 15
Creatinine 0.7
Glucose 96
Calcium 8.4
Total Bilirubin 9.1 H
AST 180 H
ALT 71 H
Alkaline Phosphatase 197 H
Vital Signs:
Vital Signs
Temp Pulse Resp BP Pulse Ox
98.7 F 87 20 111/67 98
10/13/24 07:46 10/13/24 08:26 10/13/24 08:26 10/13/24 08:26 10/13/24 07:46
Physical Exam
-
General: Well Developed and No Apparent Distress
HEENT: Normocephalic, Atraumatic, Moist Mucous Membranes and Other (Jaundice); Negative Anicteric
Respiratory: Clear to Auscultation
Cardiac: Regular Rhythm and S1/S2; Negative Murmur, Rub or Gallop
GI: Soft, Nontender, Normal Bowel Sounds and Distended; Negative Organomegaly
Rectal: Deferred by Provider
Musculoskeletal: No Clubbing, No Cyanosis and Other (Generalized edema)
Skin: Negative Rash
Neuro: Awake, Alert, Oriented, AO x 3 and Nonfocal/Grossly Intact
[2024-10-13] MEDS: MEPHYTON 10 MG PO (10:16)
--- NOTE | 2024-10-13 11:13 | CM ---
Cm reviewed medical records. CM met with patient in room. Patient confirmed demographics. Patient lives independently with spouse. NO history fo VN or SNF. CM discussed [facility] and what they would be able to offer patient. Patient confirmed that she
is seen by [facility] for psychiatric care. Patient denies further resources at this time.
CM will continue to follow as needed.
[2024-10-13 11:18] LABS: AFP Male/Tumor Marker 2.29 ng/ml
[2024-10-13] MEDS: EFFEXOR XR 75 MG PO (16:59)
[2024-10-13] MEDS: REVIA 50 MG PO (17:00)
[2024-10-13] MEDS: FLUSH (NSS) 2 FLUSH IV (22:48)
[2024-10-13] MEDS: ATIVAN 0.5 MG PO (23:04)
--- NOTE | 2024-10-13 23:50 | PTCARENOTE ---
@7442;TT COLIN Herrera,pt stated,'I feel anxious and would like to take my Ativan 0.5mg po daily prn I take at home'. Medication is on pt's medication summary. MSAS #1 for pulse.Medication ordered and administered @ 6831.
[2024-10-14] VITALS (7 sets, daily range): BP systolic 84–114; BP diastolic 52–63; BMI 31.2
[2024-10-14 05:54] LABS: INR 2.29; PT 25.3 Sec (11.4-14.6)
[2024-10-14 05:58] LABS: Ammonia 104 umol/L (9-30)
[2024-10-14 06:22] LABS: Hematocrit 24.5 % (37.0-47.0); Hemoglobin 8.3 g/dL (12.0-16.0); Mean Corp Hgb Conc. 33.9 g/dL (33.0-37.0); Mean Corpuscular Hgb 34.3 pg (27.0-31.0); Mean Corpuscular Volume 101.2 fL (81.0-99.0); Mean Platelet Volume 9.5 fL (7.4-10.4); Platelet Count 72 10^3/uL (130-400); Red Blood Cell Count 2.42 10^6/uL (4.20-5.40); Red Cell Dist. Width 21.1 % (11.5-14.5); White Blood Cell Count 7.2 10^3/uL (4.8-10.8)
[2024-10-14 06:51] LABS: ALT (SGPT) 72 U/L (0-35); AST (SGOT) 168 U/L (14-36); Albumin 2.6 g/dl (3.5-5.0); Alkaline Phosphatase 265 U/L (38-126); Blood Urea Nitrogen 15 mg/dl (7-17); Calcium 8.2 mg/dl (8.4-10.2); Carbon Dioxide 25 mmol/L (22-30); Chloride 105 mmol/L (98-107); Direct Bilirubin 4.8 mg/dl (0.0-0.4); Estimated Creatinine Clearance > 125 ml/min; Glucose 89 mg/dl (70-99); Iron 86 ug/dl (37-170); Sodium 138 mmol/L (135-145); Total Bilirubin 7.7 mg/dl (0.2-1.3); Total Protein 6.5 g/dl (6.3-8.2); eGFR > 60.00
[2024-10-14 07:01] LABS: Percent Saturation 42 % (20-50); Total Iron Binding Capacity 204 ug/dl (265-497)
[2024-10-14] MEDS: FOLVITE 1 MG PO (08:12)
[2024-10-14] MEDS: THIAMINE INJECTION 200 MG IV ×2 (08:12→22:44)
[2024-10-14] MEDS: EFFEXOR XR 75 MG PO (08:12)
[2024-10-14] MEDS: PROTONIX 40 MG PO (08:12)
[2024-10-14] MEDS: LASIX PO (08:13)
[2024-10-14] MEDS: REVIA 50 MG PO (08:13)
[2024-10-14] MEDS: ALDACTONE PO (08:13)
[2024-10-14] MEDS: LASIX 40 MG PO (08:58)
--- NOTE | 2024-10-14 10:30 | W.PN.GI.CBS2 ---
Addendum entered and electronically signed by Deysi Verma MD 10/14/24 15:33:
I saw and examined the patient.
The FILLING STATION EQUIPMENT MECHANIC's note was reviewed and I agree with the note.
Comment: Was more confused earlier today with elevated ammonia level with hepatic encephalopathy, lactulose was increased. I also added Xifaxan. now seems more alert and oriented. Undergoing infection workup also. Continue Aldactone and Lasix for
worsening lower extremity edema which was related to noncompliance with medications and also noncompliance with the 2 g sodium diet. She also had been drinking alcohol except for the past 2 weeks since she has been on the naltrexone. Continue
thiamine and folic acid and watch for withdrawal
Original Note:
Today's Communication / Plan
-
Etiology of symptoms with concern for continued decompensation with fluid overload-- primarily LE edema, minimal ascites per US, now with HE with worsening mental status today
etiology of HE unclear-- r/o infection, some drop in hbg but no stools-- nursing to track stools for bleeding, electrolytes appear stable, pt with only 1 dose ativan overnight
will add Lactulose TID for now and taper down in AM
check blood cx and CXR for infectious work up, UA neg, US not enough fluid to tap
current MELD 3.0 26 repeat 10/14 remains 26, with DF 64.8- repeat 10/14 64.3
cont Spironolactone 100mg and Lasix 40mg -- reviewed with patient need for compliance with medication and labwork -- + wt loss since admission
fibroscan pending
minimal change in INR with vitamin K -- no current signs of aggressive bleeding, some drop in hbg cont to trend
again stressed need to patient she must quit ETOH with severity of liver disease last ETOH 2 weeks ago
monitor for withdrawal
stressed good nutrition cont supplement
some liver serologies sent and pending
pending hep serologies vaccinate to hep A and B if no immunity
eventual colonoscopy with family hx
Pt is scheduled 11/30 at 8:[address] Gallardo
reviewed will need hepatology evaluation -- inpatient if MELD and DF not improving vs OP follow up
family updated 10/13
Assessment / Plan
-
Patient is a 39yo with hx of gastric bypass (2011), ADHD, anxiety, GI bleed with anatomic ulcer, perforated duodenal ulcer s/p surgical repair, internal hemorrhoids, GERD, ETOH hepatitis with admission in June 2024 with ascites. Per records she
was initially admitted to [place] with and given Prednisolone course. Unfortunately when seen in August she continued with ETOH use and now still admits to last drink 2 weeks ago (wine) and started Naltrexone. She did completed EGD in August
with prior Rekha-en-y gastrojejunostomy, portal HTN gastropathy, normal jejunum no varices seen. She had fibroscan last week and results pending. She was also recommended liver serology work up but not completed. No prior evaluation with
hepatology in past.
-fluid overload with LE edema
-elevated ammonia with change in mental status 10/14
-ETOH abuse disorder with continued use
-recent ETOH hepatitis +/- cirrhosis with elevated LFT's and decompensated liver disease
-mild lipase elevation
-portal gastropathy on EGD
-coagulopathy
-anemia
-hypoalbuminemia
-thrombocytopenia
-rectal bleeding
-gallbladder sludge on imaging
-splenomegaly
other med problems:
-hx gastric bypss
-ADHD
-anxiety
-hx GI bleed, gastric ulcer with repair
-hx hemorrhoids
-GERD
-family hx colon CA/polyps
Recommendations:
Etiology of symptoms with concern for continued decompensation with fluid overload-- primarily LE edema, minimal ascites per US, now with HE with worsening mental status today
etiology of HE unclear-- r/o infection, some drop in hbg but no stools-- nursing to track stools for bleeding, electrolytes appear stable, pt with only 1 dose Ativan overnight
will add Lactulose TID for now and taper down in AM
check blood cx and CXR for infectious work up, UA neg, US not enough fluid to tap
current MELD 3.0 26 repeat 10/14 remains 26, with DF 64.8- repeat 10/14 64.3
cont Spironolactone 100mg and Lasix 40mg -- reviewed with patient need for compliance with medication and labwork -- + wt loss since admission
fibroscan pending
minimal change in INR with vitamin K -- no current signs of aggressive bleeding, some drop in hbg cont to trend
again stressed need to patient she must quit ETOH with severity of liver disease last ETOH 2 weeks ago
monitor for withdrawal
stressed good nutrition cont supplement
some liver serologies sent and pending
pending hep serologies vaccinate to hep A and B if no immunity
eventual colonoscopy with family hx
Pt is scheduled 11/30 at 8:[address] Gallardo
reviewed will need hepatology evaluation -- inpatient if MELD and DF not improving vs OP follow up
family updated 10/13
Subjective
Subjective
Date of Service: October 14, 2024
2 gram Na diet, no stools pt with some drowsiness in evaluation
Objective
Data Reviewed
Laboratory Data:
Laboratory Results
10/14/24 05:27
10/14/24 05:28
Laboratory Results
PT 25.3 Sec (11.4-14.6) H 10/14/24 05:28
INR 2.29 10/14/24 05:28
APTT 44.0 Sec (23.4-35.0) H 10/12/24 19:44
Phosphorus 3.9 mg/dl (2.5-4.5) 10/12/24 20:49
Magnesium 1.8 mg/dl (1.6-2.3) 10/12/24 20:49
Total Bilirubin 7.7 mg/dl (0.2-1.3) H 10/14/24 05:28
AST 168 U/L (14-36) H 10/14/24 05:28
ALT 72 U/L (0-35) H 10/14/24 05:28
Alkaline Phosphatase 265 U/L (38-126) H 10/14/24 05:28
Lipase 353 U/L (23-300) H 10/13/24 05:36
Vital Signs and I&O:
Vital Signs
Temp Pulse Resp BP Pulse Ox
98.4 F 91 19 108/55 97
10/14/24 07:15 10/14/24 07:15 10/14/24 07:15 10/14/24 07:15 10/14/24 07:15
I&O
10/13/24 10/14/24 10/15/24
06:59 06:59 06:59
Intake Total 640 / 640
Output Total 150 / 150
Balance 490 / 490
Physical Exam
Physical Exam
HEENT: Other (jaundice )
Cardiology: Normal Sinus Rhythm
Pulmonary: Clear
GI: Soft, Non Distended and Non Tender
Extremities: Edema (with some improvement overnight )
Neuro: Other (pt with some drifting off in conversation, mild asteixis )
[2024-10-14] MEDS: DUPHALAC/CHRONULAC 20 GRAMS PO ×3 (11:04→22:43)
--- NOTE | 2024-10-14 15:23 | W.PN.HOSP.TC ---
Today's Communication/Plan
-
Treat hepatic encephalopathy
Check blood cultures.
Monitor for ascites.
Diuretics
Follow BMP and LFT.
Assessment / Plan
Assessment / Plan
Impression:
Presentation with generalized edema/anasarca and worsening jaundice
Alcoholic cirrhosis.
Alcohol induced hepatitis
Hepatic encephalopathy
Anasarca secondary to above and medication noncompliance.
Coagulopathy.
Chronic anemia
Chronic thrombocytopenia
Status post Rekha-en-Y bypass 2011
History of perforated duodenal ulcer
Severe alcohol use disorder.
Anxiety.
ADHD
Plan:
Presentation with generalized edema and anasarca due to medication noncompliance. Reports stopping diuretics about 2 weeks prior to presentation due to lack of prescription.
Ultrasound of the abdomen with no ascites
MELD 3.0 score 26
Hepatitis discriminant 69
Ammonia level 60 with no evidence of hepatic encephalopathy not on lactulose MACHINE PECAN PICKER
Reinstated on 2 g sodium diet
Reinstated on Lasix and Aldactone
Follow LFT and ammonia level
Previously on corticosteroids for alcohol hepatitis, although at this point no clear indication especially with prior history of gastrointestinal bleeding.
Hepatic encephalopathy
Lethargic today on 10/14
Noted with rising ammonia levels 104
Afebrile
Ultrasound with minimal nonpalpable fluid
Check blood cultures.
Initiated on lactulose
Follow ammonia level
Chronic anemia stable.
History of perforated duodenal ulcer.
EGD 08/27: Normal esophagus, Rekha-en-Y gastrojejunostomy, portal hypertensive gastropathy. Normal jejunum.
Continue PPI
Severe alcohol use disorder
Patient states attempting to quit drinking and has been started on naloxone.
Continue close monitoring for alcohol withdrawal with MSAS
Continue thiamine
ADHD
On dextromethorphan�amphetamine MACHINE PECAN PICKER
Anticipated Discharge: > 48 hours
Subjective/Interval History
-
Date of Service: October 14, 2024
Objective Data
-
Labs:
Laboratory Results
10/14/24 10/14/24
05:27 05:28
WBC 7.2
Hgb 8.3 L
Hct 24.5 L
Plt Count 72 L
PT 25.3 H
INR 2.29
Sodium 138
Potassium 4.0
Chloride 105
Carbon Dioxide 25
BUN 15
Creatinine 0.6
Glucose 89
Calcium 8.2 L
Total Bilirubin 7.7 H
AST 168 H
ALT 72 H
Alkaline Phosphatase 265 H
Vital Signs:
Vital Signs
Temp Pulse Resp BP Pulse Ox
98.4 F 92 19 108/63 98
10/14/24 15:14 10/14/24 15:14 10/14/24 15:14 10/14/24 15:14 10/14/24 15:14
I&O
10/13/24 10/14/24 10/15/24
06:59 06:59 06:59
Intake Total 640 / 640
Output Total 150 / 150
Balance 490 / 490
Physical Exam
-
General: Well Developed and No Apparent Distress
HEENT: Normocephalic, Atraumatic, Moist Mucous Membranes and Other (Jaundice); Negative Anicteric
Respiratory: Clear to Auscultation
Cardiac: Regular Rhythm and S1/S2; Negative Murmur, Rub or Gallop
GI: Soft, Nontender, Normal Bowel Sounds and Distended; Negative Organomegaly
Rectal: Deferred by Provider
Musculoskeletal: No Clubbing, No Cyanosis and Other (Generalized edema)
Skin: Negative Rash
Neuro: Other (Lethargic/somnolent)
[2024-10-14] MEDS: XIFAXAN PO ×2 (22:44→22:47)
[2024-10-15 03:30] VITALS: BP 99/51
[2024-10-15 06:00] VITALS: BMI 31.0
[2024-10-15 06:12] LABS: Ammonia 30 umol/L (9-30)
[2024-10-15 06:26] LABS: % Basophils 0.6 % (0-2); % Eosinophils 1.9 % (0-6); % Immature Granulocytes 1.5 % (0-0.5); % Lymphocytes 29.9 % (20.5-51.1); % Monocytes 16.1 % (1.7-9.3); Absolute Eosinophils 0.1 10^3/uL (0-0.7); Absolute Immature Granulocytes 0.1 10^3/uL (0-0.05); Absolute Monocytes 1.1 10^3/uL (0.1-0.6); Absolute Neutrophils 3.4 10^3/uL (1.4-6.5); Hematocrit 24.2 % (37.0-47.0); Hemoglobin 8.2 g/dL (12.0-16.0); Mean Corp Hgb Conc. 33.9 g/dL (33.0-37.0); Mean Corpuscular Hgb 34.5 pg (27.0-31.0); Mean Corpuscular Volume 101.7 fL (81.0-99.0); Mean Platelet Volume 9.3 fL (7.4-10.4); Nucleated Red Blood Cells % 0 %; Platelet Count 72 10^3/uL (130-400); Red Blood Cell Count 2.38 10^6/uL (4.20-5.40); Red Cell Dist. Width 21.3 % (11.5-14.5); White Blood Cell Count 6.8 10^3/uL (4.8-10.8)
[2024-10-15 06:37] LABS: INR 2.13; PT 24.3 Sec (11.4-14.6)
[2024-10-15 07:09] LABS: ALT (SGPT) 68 U/L (0-35); AST (SGOT) 161 U/L (14-36); Albumin 2.7 g/dl (3.5-5.0); Alkaline Phosphatase 193 U/L (38-126); Blood Urea Nitrogen 13 mg/dl (7-17); Calcium 8.1 mg/dl (8.4-10.2); Carbon Dioxide 23 mmol/L (22-30); Chloride 107 mmol/L (98-107); Estimated Creatinine Clearance > 125 ml/min; Glucose 112 mg/dl (70-99); Sodium 139 mmol/L (135-145); Total Bilirubin 9.7 mg/dl (0.2-1.3); Total Protein 6.8 g/dl (6.3-8.2); eGFR > 60.00
[2024-10-15 08:24] VITALS: BP 101/58
[2024-10-15] MEDS: ALDACTONE PO (08:28)
[2024-10-15] MEDS: PROTONIX 40 MG PO (08:34)
[2024-10-15] MEDS: REVIA 50 MG PO (08:34)
[2024-10-15] MEDS: LASIX 40 MG PO (08:34)
[2024-10-15] MEDS: FOLVITE 1 MG PO (08:34)
[2024-10-15] MEDS: EFFEXOR XR 75 MG PO (08:35)
[2024-10-15] MEDS: THIAMINE INJECTION 200 MG IV ×2 (08:35→21:33)
[2024-10-15] MEDS: DUPHALAC/CHRONULAC 20 GRAMS PO ×3 (08:35→21:33)
[2024-10-15] MEDS: XIFAXAN 550 MG PO ×2 (08:35→21:33)
[2024-10-15 11:27] VITALS: BP 95/56
--- NOTE | 2024-10-15 13:22 | CM ---
CM following re: discharge planing.
Reviewed pt's chart, met with pt.
Disposition remains unchanged - home with family support. Pt is independent with functional ability.
CM will follow with discharge plan updates as hospitalization progresses
--- NOTE | 2024-10-15 14:58 | W.PN.GI.CBS2 ---
Today's Communication / Plan
-
continue current meds
Assessment / Plan
-
Patient is a 39yo with hx of gastric bypass (2011), ADHD, anxiety, GI bleed with anatomic ulcer, perforated duodenal ulcer s/p surgical repair, internal hemorrhoids, GERD, ETOH hepatitis with admission in June 2024 with ascites. Per records she
was initially admitted to [facility] with and given Prednisolone course. Unfortunately when seen in August she continued with ETOH use and now still admits to last drink 2 weeks ago (wine) and started Naltrexone. She did completed EGD in August
with prior Rekha-en-y gastrojejunostomy, portal HTN gastropathy, normal jejunum no varices seen. She had fibroscan last week and results pending. She was also recommended liver serology work up but not completed. No prior evaluation with
hepatology in past.
-fluid overload with LE edema
-elevated ammonia with change in mental status 10/14
-ETOH abuse disorder with continued use
-recent ETOH hepatitis +/- cirrhosis with elevated LFT's and decompensated liver disease
-mild lipase elevation
-portal gastropathy on EGD
-coagulopathy
-anemia
-hypoalbuminemia
-thrombocytopenia
-rectal bleeding
-gallbladder sludge on imaging
-splenomegaly
other med problems:
-hx gastric bypss
-ADHD
-anxiety
-hx GI bleed, gastric ulcer with repair
-hx hemorrhoids
-GERD
-family hx colon CA/polyps
Recommendations:
Etiology of symptoms with concern for continued decompensation with fluid overload-- primarily LE edema, minimal ascites per US,
Had mild hepatic encephalopathy which resolved with lactulose and Xifaxan
No signs of GI bleed or infection currently not enough fluid for tap on ultrasound
current MELD 3.0 26 repeat 10/14 remains 26, with DF 64.8- repeat 10/14 64.3
cont Spironolactone 100mg and Lasix 40mg
reviewed with patient need for compliance with medication and labwork and 2 g sodium diet
fibroscan pending
minimal change in INR with vitamin K -- no current signs of aggressive bleeding, some drop in hbg cont to trend
again stressed need to patient she must quit ETOH with severity of liver disease last ETOH 2 weeks ago now on naltrexone
monitor for withdrawal
stressed good nutrition cont supplement
some liver serologies sent and pending
pending hep serologies vaccinate to hep A and B if no immunity
eventual colonoscopy with family hx
Pt is scheduled 11/30 at 8:[address] Gallardo
reviewed will need hepatology evaluation
Okay for DC from GI perspective
We will sign off and will be available as needed
Subjective
Subjective
Date of Service: October 15, 2024
Patient is awake and mentation is at baseline, blood cultures are negative,
She did have a bowel movement today, hemoglobin is stable, no melena was reported
Objective
Data Reviewed
Laboratory Data:
Laboratory Results
10/15/24 05:46
10/15/24 05:46
Laboratory Results
PT 24.3 Sec (11.4-14.6) H 10/15/24 05:46
INR 2.13 10/15/24 05:46
APTT 44.0 Sec (23.4-35.0) H 10/12/24 19:44
Phosphorus 3.9 mg/dl (2.5-4.5) 10/12/24 20:49
Magnesium 1.8 mg/dl (1.6-2.3) 10/12/24 20:49
Total Bilirubin 9.7 mg/dl (0.2-1.3) H 10/15/24 05:46
AST 161 U/L (14-36) H 10/15/24 05:46
ALT 68 U/L (0-35) H 10/15/24 05:46
Alkaline Phosphatase 193 U/L (38-126) H 10/15/24 05:46
Lipase 353 U/L (23-300) H 10/13/24 05:36
Vital Signs and I&O:
Vital Signs
Temp Pulse Resp BP Pulse Ox
98 F 92 16 95/56 100
10/15/24 11:27 10/15/24 11:27 10/15/24 11:27 10/15/24 11:27 10/15/24 11:27
I&O
10/14/24 10/15/24 10/16/24
06:59 06:59 06:59
Intake Total 640 / 640 1140 / 1140
Output Total 150 / 150 450 / 450
Balance 490 / 490 690 / 690
Physical Exam
Physical Exam
Cardiology: Normal Sinus Rhythm
Pulmonary: Clear
GI: Soft, Non Distended, Non Tender and Normal Bowel Sounds
--- NOTE | 2024-10-15 14:59 | W.PN.HOSP.TC ---
Today's Communication/Plan
-
Continue lactulose and rifaximin
Follow ammonia level
Continue Lasix
Avoid sedatives.
No evidence for withdrawal.
Continue thiamine.
Assessment / Plan
Assessment / Plan
Impression:
Presentation with generalized edema/anasarca and worsening jaundice
Alcoholic cirrhosis.
Alcohol induced hepatitis
Hepatic encephalopathy
Anasarca secondary to above and medication noncompliance.
Coagulopathy.
Chronic anemia
Chronic thrombocytopenia
Status post Rekha-en-Y bypass 2011
History of perforated duodenal ulcer
Severe alcohol use disorder.
Anxiety.
ADHD
Plan:
Presentation with generalized edema and anasarca due to medication noncompliance. Reports stopping diuretics about 2 weeks prior to presentation due to lack of prescription.
Ultrasound of the abdomen with no ascites
MELD 3.0 score 26
Hepatitis discriminant 69
Ammonia level 60 with no evidence of hepatic encephalopathy not on lactulose [employer]
Reinstated on 2 g sodium diet
Reinstated on Lasix and Aldactone
Follow LFT and ammonia level
Previously on corticosteroids for alcohol hepatitis, although at this point no clear indication especially with prior history of gastrointestinal bleeding.
Hepatic encephalopathy
Lethargic on 10/14 improved with ammonia trending down from 10 4-30
Afebrile
No clear evidence for infection as a cause for developing encephalopathy
Chest x-ray negative
Blood cultures negative to date.
ReSound of the abdomen with no ascites
Initiated on lactulose and rifaximin
Follow ammonia level
Chronic anemia stable.
History of perforated duodenal ulcer.
EGD 08/27: Normal esophagus, Rekha-en-Y gastrojejunostomy, portal hypertensive gastropathy. Normal jejunum.
Continue PPI
Severe alcohol use disorder
Patient states attempting to quit drinking and has been started on naloxone.
Continue close monitoring for alcohol withdrawal with MSAS
Continue thiamine
ADHD
On dextromethorphan�amphetamine ACETYLENE [employer]
Anticipated Discharge: 24 - 48 hours
Subjective/Interval History
-
Date of Service: October 15, 2024
Objective Data
-
Labs:
Laboratory Results
10/15/24
05:46
WBC 6.8
Hgb 8.2 L
Hct 24.2 L
Plt Count 72 L
PT 24.3 H
INR 2.13
Sodium 139
Potassium 4.0
Chloride 107
Carbon Dioxide 23
BUN 13
Creatinine 0.6
Glucose 112 H
Calcium 8.1 L
Total Bilirubin 9.7 H
AST 161 H
ALT 68 H
Alkaline Phosphatase 193 H
Vital Signs:
Vital Signs
Temp Pulse Resp BP Pulse Ox
98 F 92 16 95/56 100
10/15/24 11:27 10/15/24 11:27 10/15/24 11:27 10/15/24 11:27 10/15/24 11:27
I&O
10/14/24 10/15/24 10/16/24
06:59 06:59 06:59
Intake Total 640 / 640 1140 / 1140
Output Total 150 / 150 450 / 450
Balance 490 / 490 690 / 690
Physical Exam
-
General: Well Developed and No Apparent Distress
HEENT: Normocephalic, Atraumatic, Moist Mucous Membranes and Other (Jaundice); Negative Anicteric
Respiratory: Clear to Auscultation
Cardiac: Regular Rhythm and S1/S2; Negative Murmur, Rub or Gallop
GI: Soft, Nontender, Normal Bowel Sounds and Distended; Negative Organomegaly
Rectal: Deferred by Provider
Musculoskeletal: No Clubbing, No Cyanosis and Other (Generalized edema)
Skin: Negative Rash
Neuro: Awake, Alert, Oriented and Other
[2024-10-15 16:09] VITALS: BP 104/63
[2024-10-15 19:47] LABS: Hepatitis B Surface Antigen Negative (Negative)
[2024-10-15 20:06] LABS: Hepatitis B Core Ab, Total Negative (Negative); Hepatitis B Surface Antibody Negative; Hepatitis C Antibody Negative (Negative)
[2024-10-15 23:18] VITALS: BP 108/58
[2024-10-16 00:05] LABS: ANA, IgG Reflex to HEp-2 None Detected (None Detected)
[2024-10-16 01:50] LABS: Mitochondrial M2 Ab, IgG 15.4 Units (0.0-24.9)
[2024-10-16 05:51] LABS: Alpha-1-Antitrypsin 168 mg/dL (90-200); Ceruloplasmin 21 mg/dL (16-45)
[2024-10-16 06:00] VITALS: BMI 30.7
[2024-10-16 06:41] LABS: Hematocrit 24.8 % (37.0-47.0); Hemoglobin 8.1 g/dL (12.0-16.0); Mean Corp Hgb Conc. 32.7 g/dL (33.0-37.0); Mean Corpuscular Hgb 33.8 pg (27.0-31.0); Mean Corpuscular Volume 103.3 fL (81.0-99.0); Mean Platelet Volume 9.6 fL (7.4-10.4); Platelet Count 69 10^3/uL (130-400); Red Cell Dist. Width 20.5 % (11.5-14.5); White Blood Cell Count 7.7 10^3/uL (4.8-10.8)
[2024-10-16 06:58] LABS: Blood Urea Nitrogen 11 mg/dl (7-17); Calcium 8.1 mg/dl (8.4-10.2); Carbon Dioxide 26 mmol/L (22-30); Chloride 108 mmol/L (98-107); Estimated Creatinine Clearance 125 ml/min; Glucose 125 mg/dl (70-99); Sodium 139 mmol/L (135-145); eGFR > 60.00
[2024-10-16 07:54] VITALS: BP 91/49
[2024-10-16] MEDS: ALDACTONE PO (08:00)
[2024-10-16] MEDS: EFFEXOR XR 75 MG PO (08:01)
[2024-10-16] MEDS: XIFAXAN 550 MG PO (08:01)
[2024-10-16] MEDS: PROTONIX 40 MG PO (08:01)
[2024-10-16] MEDS: FOLVITE 1 MG PO (08:01)
[2024-10-16] MEDS: DUPHALAC/CHRONULAC 20 GRAMS PO ×2 (08:01→15:01)
[2024-10-16] MEDS: VITAMIN B1 100 MG PO (08:01)
[2024-10-16] MEDS: REVIA 50 MG PO (08:01)
[2024-10-16 08:34] LABS: Hepatitis A Antibody, Total Borderline (Negative)
[2024-10-16] MEDS: LASIX 40 MG PO (08:59)
--- NOTE | 2024-10-16 15:03 | W.DS.TRANS ---
DC Summary - Log Getter
-
Discharge Instructions:
Discharge Diagnosis/Procedures Cirrhosis
Diet 2 Gram Sodium
Instructions:
Stand-Alone Forms:
Changes to Home Medications: Yes
Discharge Medications:
DC Medications w/original date entered in [employer]
dextroamphetamine-amphetamine 30 mg tablet 30 mg PO BID Neurological Condition 06/17/24
folic acid 1 mg tablet 1 mg PO DAILY Supplement 06/17/24
therapeutic multivitamin 1 tab PO DAILY Supplement 06/17/24
vitamin B complex 1 cap PO DAILY Supplement 06/17/24
ferrous sulfate 325 mg (65 mg iron) tablet 325 mg PO DAILY Supplement 10/13/24
furosemide 40 mg tablet 40 mg PO DAILY Fluid Retention/Swelling 10/13/24
naltrexone 50 mg tablet 50 mg PO DAILY alcohol use disorder 10/13/24
pantoprazole 40 mg tablet,delayed release 40 mg PO DAILY Gastrointestinal Issue 10/13/24
spironolactone 50 mg tablet 100 mg PO DAILY Blood Pressure 10/13/24
venlafaxine 75 mg capsule,extended release 24 hr 75 mg PO DAILY 10/13/24
lactulose 20 gram/30 mL oral solution 20 g (30 mL) PO TID #3,000 mL 10/16/24
rifaximin 550 mg tablet (Xifaxan) 550 mg PO BID #60 tabs 10/16/24
Home Medication Changes
Ativan stopped
Lactulose and Xifaxan started
Pending Results: Yes
Additional Pending Results:
Autoimmune hepatitis serology
--- NOTE | 2024-10-16 15:36 | CM ---
Plan: discharge to home today; no services needed; Mother will transport home
[2024-10-16 16:02] VITALS: BP 103/59
[2024-10-16 21:38] LABS: LKM-1 Ab (IgG) 0.7 U (0.0-24.9)
[2024-10-18 18:27] LABS: Soluble Liver Antigen Ab 1.3 U (0.0-24.9)
[2024-10-19 20:02] LABS: Hepatitis A IgM Antibody Negative (Negative)
== END 2024-10-16 16:29 | disposition home or self-care (01) | DRG 433 ==
LOC: 3 WEST ACU 20:20
PROVIDERS: Clinical Nurse Specialist Family Health; Nurse Practitioner Adult Health; Registered Nurse; Student in an Organized Health Care Education/Training Program; ADMITTING PHYSICIAN Internal Medicine; ATTENDING PHYSICIAN Internal Medicine; CONSULT PHYSICIAN Internal Medicine Gastroenterology; EMERGENCY PHYSICIAN Emergency Medicine; FAMILY PHYSICIAN Physician Assistant Medical
DX: K70.30 Alcoholic cirrhosis of liver without ascites (principal); D68.4 Acquired coagulation factor deficiency; K76.6 Portal hypertension; E87.70 Fluid overload, unspecified; K70.10 Alcoholic hepatitis without ascites; D50.9 Iron deficiency anemia, unspecified; D63.8 Anemia in other chronic diseases classified elsewhere; K76.82 Hepatic encephalopathy; F10.20 Alcohol dependence, uncomplicated; F90.9 Attention-deficit hyperactivity disorder, unspecified type; F41.9 Anxiety disorder, unspecified; R60.1 Generalized edema; D69.59 Other secondary thrombocytopenia; T50.1X6A Underdosing of loop [high-ceiling] diuretics, initial encounter; D72.829 Elevated white blood cell count, unspecified; D73.1 Hypersplenism; F17.200 Nicotine dependence, unspecified, uncomplicated; K21.9 Gastro-esophageal reflux disease without esophagitis; K31.89 Other diseases of stomach and duodenum; K76.0 Fatty (change of) liver, not elsewhere classified; Z98.84 Bariatric surgery status; Z91.148 Patient's other noncompliance with medication regimen for other reason; Z91.128 Patient's intentional underdosing of medication regimen for other reason; Z79.899 Other long term (current) drug therapy; Z87.11 Personal history of peptic ulcer disease
CPT/HCPCS: 71046; 76700; 80048; 80053; 80306; 80307; 81003; 82010; 82077; 82103; 82105; 82140; 82248; 82390; 82728; 82977; 83516; 83540; 83550; 83690; 83735; 83880; 84100; 85025; 85027; 85610; 85730; 86038; 86376; 86381; 86704; 86705; 86706; 86708; 86709; 86803; 87040; 87340; 90686; 93005; 96374; 99285; G0008

== ENCOUNTER 2024-11-06 18:14 | Inpatient (IN) | payer OTHER, SELFPAY ==
[2024-11-06 14:23] VITALS: BP 104/60
--- NOTE | 2024-11-06 14:32 | ED.GENMED ---
ED Provider Triage
<Erick Farooq PA-C - Last Filed: 11/06/24 14:34>
-
Patient seen by provider in Triage?: Seen in Triage
39 yo female hx of chronic ETOH cirrhosis presents due to fever and SOB. Chronically jaundiced. + cough, minimally productive. Fever began last night. No abd bloating or distention
Looks acutely well, no resp distress, grossly jaundiced. Check labs, CXR, UA, COVID/flu
History of Present Illness
<Erick Farooq PA-C - Last Filed: 11/06/24 14:34>
General
Chief Complaint: Fever
Time Seen by Provider: 11/06/24 16:52
<Froilan Marshall PA-C - Last Filed: 11/06/24 19:06>
General
Source: patient
History of Present Illness
History of Present Illness:
39-year-old female with past medical history of liver cirrhosis, anxiety and depression presenting to the emergency department for evaluation after she started feeling unwell the last few days describing shortness of breath, cough, fevers, chills,
today symptoms seem to be worse prompting her to come to the ER for further evaluation. No known sick contacts, recent travel or recent antibiotics. Patient notes that she is currently undergoing care and monitoring for liver failure. States that
she is getting labs weekly to monitor this. She denies any current abdominal pain but does admit to some lower extremity edema and did not take her diuretics today. She denies any nausea, vomiting, urinary symptoms or bowel changes. Did not take
any medications prior to arrival for her fever.
Past History
<Erick Farooq PA-C - Last Filed: 11/06/24 14:34>
Past History
ED Past Medical History: Psychiatric (Anxiety, Depression, ) and Other (alcoholic hepatitis, Cirrhosis of the liver, Ulcers, Iron def anemia, )
ED Past Surgical History: Orthopedic (Jaw surgery) and Other (gastric bypass, Surgery for perforated ulcer)
Social History
Tobacco: Smoker
Alcohol: Chronic alcoholic (patient denies this at this time)
Drug: None
Personal:
Living: with family
Employment: Employed
Review of Systems
<VIOLET Sanchez Last Filed: 11/06/24 19:06>
Review of Systems
All Other Systems: ROS reviewed and negative except as documented in HPI and ROS
Phy Exam
<VIOLET Sanchez Last Filed: 11/06/24 19:06>
Physical Exam
Physical Exam:
GENERAL: Alert , appears older than stated age, chronically ill-appearing, jaundiced
HEAD: Normocephalic atraumatic
EYE: Icteric sclera
HEAD: NCAT
ENT: o/p clr, mmm.
CARDIAC: Tachycardic rate and rhythm
LUNGS: Diminished bibasilar, no Rales or wheezing
ABDOMEN: Soft and distended, without focal tenderness, no r/g, no cvat
NEUROLOGICAL: Alert and oriented
SKIN: Warm and dry, skin intact.
MUSCULOSKELETAL: Bilateral foot/ankle edema, well perfused.
PSYCH: Normal and appropriate interaction.
Scores
<VIOLET Sanchez Last Filed: 11/06/24 19:06>
Heart Failure Risk
Heart Failure Risk Score: Not Applicable
Heart Score for Chest Pain Patients
STEMI patient?: Not applicable
Withdrawal Assessment of Alcohol
Withdrawal Assessment Completed?: Not applicable
Course
<Erick Farooq PA-C - Last Filed: 11/06/24 14:34>
Orders/Labs/Results
Orders:
Orders
11/06/24 14:32
Urinalysis Reflex To Culture Urgent
Date Specimen was Collected: 11/06/24
Time Specimen was Collected: 19:01
CR Chest - 2 Views Urgent
Comment:
Reason For Exam: fever
11/06/24 14:34
Complete Blood Count/With Diff Urgent
Comprehensive Metabolic Panel Urgent
11/06/24 14:35
COVID-19 Antigen Urgent
Source: Nasal Swab
Influenza A+B Rapid Molecular Urgent
RAYO Source: Nasal Swab
Specimen Description:
11/06/24 16:56
CefTRIAXone [Rocephin] 1,000 mg IV NOW STA
Doxycycline [Vibramycin] 100 mg PO NOW STA
11/06/24 17:09
0.9% Sodium Chloride 1000 ml [Nss] 2,000 ml IV BOLUS
11/06/24 17:10
Furosemide [Lasix] 40 mg IV NOW STA
11/06/24 17:49
Admit/Transfer Patient As Directed
Co-Sign Provider:
Level of Care: Inpatient admission
Assign to:: IMU- Intermediate Care
Physician / Group: fuad hobbs
Diagnosis: sepsis
Reason for Hospitalization: sepsis sec to pneumonia
anarsca
Expected length of stay greater than two midnights?: Yes
ELOS- Estimated Length of Stay in days: 3
I certify the patient meets the requirements for IP care: Yes
11/06/24 17:50
PRN Pain Medication Management As Directed
May give lesser potent ordered pain med per pt: Yes
preference::
Protocol:: Medication orders for pain may be administered in a
manner that supports deferring to patient preference
when the pt is:
- Requesting an ordered lesser potent pain medication.
Least to most potent pain medications are defined
as: acetaminophen < NSAID < tramadol < opioids
(morphine, oxycodone, hydromorphone).
- Requesting a lesser dose of the same medication IF
ORDERED.
- Requesting a less intrusive route of administration
if both routes are prescribed by the provider (PO <
IV).
11/06/24 17:51
Code Status As Directed
Resuscitation Status: Full Code
11/06/24 18:02
Lactic Acid Q4H
Comment: CANCEL 2nd LACTIC ACID IF 1st LACTIC ACID IS LESS THAN 2
Blood Culture Q30M
RAYO Source: Blood/Venous
Specimen Description:
Blood Culture Q30M
RAYO Source: Blood/Venous
Specimen Description:
11/06/24 21:00
Lactic Acid Q4H
Comment: CANCEL 2nd LACTIC ACID IF 1st LACTIC ACID IS LESS THAN 2
11/07/24 06:00
Ammonia IN AM
Abnormal Lab Results
11/06/24 11/06/24
14:34 18:02
WBC 14.7 H 10^3/uL
(4.8-10.8)
RBC 2.67 L 10^6/uL
(4.20-5.40)
Hgb 9.3 L g/dL
(12.0-16.0)
Hct 28.3 L %
(37.0-47.0)
MCV 106.0 H fL
(81.0-99.0)
MCH 34.8 H pg
(27.0-31.0)
MCHC 32.9 L g/dL
(33.0-37.0)
RDW 18.0 H %
(11.5-14.5)
Plt Count 71 L 10^3/uL
(130-400)
Abs Immat Gran (auto) 0.2 H 10^3/uL
(0-0.05)
Absolute Neuts (auto) 11.8 H 10^3/uL
(1.4-6.5)
Absolute Lymphs (auto) 1.0 L 10^3/uL
(1.2-3.4)
Absolute Monos (auto) 1.7 H 10^3/uL
(0.1-0.6)
Immature Gran % 1.5 H %
(0-0.5)
Neutrophils % 80.1 H %
(42.2-75.2)
Lymphocytes % 6.5 L %
(20.5-51.1)
Monocytes % 11.4 H %
(1.7-9.3)
Sodium 130 L mmol/L
(135-145)
Lactic Acid 3.1 H mmol/L
(0.7-2.0)
Total Bilirubin 12.2 H mg/dl
(0.2-1.3)
AST 150 H U/L
(14-36)
ALT 51 H U/L
(0-35)
Alkaline Phosphatase 242 H U/L
(38-126)
Albumin 2.8 L g/dl
(3.5-5.0)
11/06/24 14:34
11/06/24 14:34
Vital Signs
Initial and Last Documented VS:
Initial Vital Signs
Temp Pulse Resp BP Pulse Ox
102.2 F H 125 20 104/60 100
11/06/24 14:23 11/06/24 14:23 11/06/24 14:23 11/06/24 14:23 11/06/24 14:23
Last Documented Vital Signs
Temp Pulse Resp BP Pulse Ox
102.4 F H 121 34 112/55 94
11/06/24 16:50 11/06/24 18:30 11/06/24 18:30 11/06/24 18:05 11/06/24 18:30
<Froilan Marshall PA-C - Last Filed: 11/06/24 19:06>
Orders/Labs/Results
Orders:
Orders
11/06/24 14:32
Urinalysis Reflex To Culture Urgent
Date Specimen was Collected: 11/06/24
Time Specimen was Collected: 19:01
CR Chest - 2 Views Urgent
Comment:
Reason For Exam: fever
11/06/24 14:34
Complete Blood Count/With Diff Urgent
Comprehensive Metabolic Panel Urgent
11/06/24 14:35
COVID-19 Antigen Urgent
Source: Nasal Swab
Influenza A+B Rapid Molecular Urgent
RAYO Source: Nasal Swab
Specimen Description:
11/06/24 16:56
CefTRIAXone [Rocephin] 1,000 mg IV NOW STA
Doxycycline [Vibramycin] 100 mg PO NOW STA
11/06/24 17:09
0.9% Sodium Chloride 1000 ml [Nss] 2,000 ml IV BOLUS
11/06/24 17:10
Furosemide [Lasix] 40 mg IV NOW STA
11/06/24 17:49
Admit/Transfer Patient As Directed
Co-Sign Provider:
Level of Care: Inpatient admission
Assign to:: IMU- Intermediate Care
Physician / Group: fuad hobbs
Diagnosis: sepsis
Reason for Hospitalization: sepsis sec to pneumonia
anarsca
Expected length of stay greater than two midnights?: Yes
ELOS- Estimated Length of Stay in days: 3
I certify the patient meets the requirements for IP care: Yes
11/06/24 17:50
PRN Pain Medication Management As Directed
May give lesser potent ordered pain med per pt: Yes
preference::
Protocol:: Medication orders for pain may be administered in a
manner that supports deferring to patient preference
when the pt is:
- Requesting an ordered lesser potent pain medication.
Least to most potent pain medications are defined
as: acetaminophen < NSAID < tramadol < opioids
(morphine, oxycodone, hydromorphone).
- Requesting a lesser dose of the same medication IF
ORDERED.
- Requesting a less intrusive route of administration
if both routes are prescribed by the provider (PO <
IV).
11/06/24 17:51
Code Status As Directed
Resuscitation Status: Full Code
11/06/24 18:02
Lactic Acid Q4H
Comment: CANCEL 2nd LACTIC ACID IF 1st LACTIC ACID IS LESS THAN 2
Blood Culture Q30M
RAYO Source: Blood/Venous
Specimen Description:
Blood Culture Q30M
RAYO Source: Blood/Venous
Specimen Description:
11/06/24 21:00
Lactic Acid Q4H
Comment: CANCEL 2nd LACTIC ACID IF 1st LACTIC ACID IS LESS THAN 2
11/07/24 06:00
Ammonia IN AM
Abnormal Lab Results
11/06/24 11/06/24
14:34 18:02
WBC 14.7 H 10^3/uL
(4.8-10.8)
RBC 2.67 L 10^6/uL
(4.20-5.40)
Hgb 9.3 L g/dL
(12.0-16.0)
Hct 28.3 L %
(37.0-47.0)
MCV 106.0 H fL
(81.0-99.0)
MCH 34.8 H pg
(27.0-31.0)
MCHC 32.9 L g/dL
(33.0-37.0)
RDW 18.0 H %
(11.5-14.5)
Plt Count 71 L 10^3/uL
(130-400)
Abs Immat Gran (auto) 0.2 H 10^3/uL
(0-0.05)
Absolute Neuts (auto) 11.8 H 10^3/uL
(1.4-6.5)
Absolute Lymphs (auto) 1.0 L 10^3/uL
(1.2-3.4)
Absolute Monos (auto) 1.7 H 10^3/uL
(0.1-0.6)
Immature Gran % 1.5 H %
(0-0.5)
Neutrophils % 80.1 H %
(42.2-75.2)
Lymphocytes % 6.5 L %
(20.5-51.1)
Monocytes % 11.4 H %
(1.7-9.3)
Sodium 130 L mmol/L
(135-145)
Lactic Acid 3.1 H mmol/L
(0.7-2.0)
Total Bilirubin 12.2 H mg/dl
(0.2-1.3)
AST 150 H U/L
(14-36)
ALT 51 H U/L
(0-35)
Alkaline Phosphatase 242 H U/L
(38-126)
Albumin 2.8 L g/dl
(3.5-5.0)
11/06/24 14:34
11/06/24 14:34
Vital Signs
Initial and Last Documented VS:
Initial Vital Signs
Temp Pulse Resp BP Pulse Ox
102.2 F H 125 20 104/60 100
11/06/24 14:23 11/06/24 14:23 11/06/24 14:23 11/06/24 14:23 11/06/24 14:23
Last Documented Vital Signs
Temp Pulse Resp BP Pulse Ox
102.4 F H 121 34 112/55 94
11/06/24 16:50 11/06/24 18:30 11/06/24 18:30 11/06/24 18:05 11/06/24 18:30
<Froilan Marshall PA-C - Last Filed: 11/06/24 19:06>
MDM/Problems Addressed
Differential Diagnosis Includes:
COVID, flu, viral syndrome, pneumonia, urinary tract infection, SBP or other liver related infection
MDM/Problems Addressed:
39-year-old female presenting to the ER for evaluation of fever and URI-like symptoms that have been ongoing for the last 3 to 4 days, gradually worsening during this time. No known sick contacts. Patient arrives to the emergency department
febrile to 102.2, tachycardic and borderline hypotension. Labs were initiated in triage which show a leukocytosis of near 15,000. She also has a hemoglobin of 9.3. Liver function seems to be right around baseline however her total bilirubin is a
little bit higher than usual. Chest x-ray performed does show a bilateral pneumonia which is the most likely source of her infectious etiology. Will cover infection with Rocephin to cover both urine, lung as well as any possible SBP infection.
Blood cultures, lactic acid and sepsis fluids were also ordered onto patient's workup. Will notify hospitalist team for admission
Chronic conditions affecting care: Other (Liver cirrhosis/alcoholic hepatitis)
<Froilan Marshall PA-C - Last Filed: 11/06/24 19:06>
*Radiology
Radiology exam reviewed: radiology read reviewed
*Pulse Oximetry
Patient hypoxic: yes
*Critical Care Note
Total Time (30-74mins, 75-104mins- exclusive of procedures): Not Applicable
Data Reviewed
Review of Other/Old Records Reveals: Labs and Records
Source: patient and records
<Froilan Marshall PA-C - Last Filed: 11/06/24 19:06>
Patient Management
Discussion with other providers: Hospitalist
Escalation/DeEscalation of care consider admission/obs:
Hospitalist team accepts for continued evaluation and treatment
ED Attending Note
<Erick Farooq PA-C - Last Filed: 11/06/24 14:34>
-
Portions of this chart may have been created with voice recognition software.� Occasional wrong word or��sound alike� substitutions may have occurred due to the inherent limitations of voice recognition software.
Discharge Plan
Departure
Patient Disposition: Admit
Date of Disposition: 11/06/24
Time of Disposition: 17:09
Presentation/result/management discussed w/ accepting MD/DO: Hospitalist
Discharge Problem:
Pneumonia, Chronic liver failure, Anemia
Interventions
Interventions:
*General Assessment Last Done: 11/06/24 14:15
*Neglect/Abuse Screening Last Done: 11/06/24 14:15
*ED COVID-19 Vaccine History Last Done: 11/06/24 16:50
ED- Neurological Assessment Last Done: 11/06/24 18:21
ED-Skin Assessment Last Done: 11/06/24 18:22
[2024-11-06 15:00] LABS: COVID-19 Antigen Negative (Negative)
[2024-11-06 15:06] LABS: ALT (SGPT) 51 U/L (0-35); Albumin 2.8 g/dl (3.5-5.0); Alkaline Phosphatase 242 U/L (38-126); Blood Urea Nitrogen 12 mg/dl (7-17); Calcium 8.4 mg/dl (8.4-10.2); Carbon Dioxide 23 mmol/L (22-30); Chloride 99 mmol/L (98-107); Glucose 90 mg/dl (70-99); Sodium 130 mmol/L (135-145); Total Bilirubin 12.2 mg/dl (0.2-1.3); Total Protein 7.1 g/dl (6.3-8.2); eGFR > 60.00
[2024-11-06 15:08] LABS: % Basophils 0.4 % (0-2); % Eosinophils 0.1 % (0-6); % Immature Granulocytes 1.5 % (0-0.5); % Lymphocytes 6.5 % (20.5-51.1); % Monocytes 11.4 % (1.7-9.3); % Neutrophils 80.1 % (42.2-75.2); Absolute Basophils 0.1 10^3/uL (0-0.2); Absolute Immature Granulocytes 0.2 10^3/uL (0-0.05); Absolute Monocytes 1.7 10^3/uL (0.1-0.6); Absolute Neutrophils 11.8 10^3/uL (1.4-6.5); Hematocrit 28.3 % (37.0-47.0); Hemoglobin 9.3 g/dL (12.0-16.0); Mean Corp Hgb Conc. 32.9 g/dL (33.0-37.0); Mean Corpuscular Hgb 34.8 pg (27.0-31.0); Nucleated Red Blood Cells % 0.2 %; Red Blood Cell Count 2.67 10^6/uL (4.20-5.40); White Blood Cell Count 14.7 10^3/uL (4.8-10.8)
[2024-11-06 15:26] LABS: Platelet Count 71 10^3/uL (130-400)
[2024-11-06 15:52] LABS: AST (SGOT) 150 U/L (14-36); Potassium 4.9 mmol/L (3.5-5.1)
[2024-11-06 16:50] VITALS: BP 118/55
--- NOTE | 2024-11-06 17:35 | HPS.HSE ---
Family Physician
-
Family Physician: Louisa Tripathi PA-C
Chief Complaint
-
shortness of breath, cough, fevers, chills
History of Present Illness
HPI
39F HX Non compliance with Meds, 2 gm Na Diet, HX alcohol hepatitis, alcohol cirrhosis, status post Rekha-en-Y gastric bypass, perforated DU status post repair, GI bleed from anastomotic ulcer rest as below and was treated in the past with
prednisolone seen at ER
- for evaluation after she started feeling unwell with shortness of breath, cough, fevers, chills
- symptoms seem to be worse prompting her to come to the ER for further evaluation.
- No known sick contacts, recent travel or recent antibiotics.
- admit to some lower extremity edema and did not take her diuretics today.
- Did not take any medications prior to arrival for her fever.
ROS
denies any current abdominal pain
denies any nausea, vomiting, urinary symptoms or bowel changes.
Medical History
Past Medical History
Past Medical History: Reports Other (gastric bypass in 2011, ADHD, history of perforated ulcer 5 years ago, GI bleeding secondary to anastomotic ulcer in the duodenum, internal hemorrhoids, GERD, anxiety, alcohol use, tobacco use)
Past Surgical History: Reports Other (Rekha-en-Y gastric bypass, jaw surgery)
Social History
Tobacco: Smoker
Alcohol: Former
Drug: None
Family History
Family History: Not pertinent
Allergies / Home Medications
Allergies reflects when Allergies were last updated in [facility].
Home Medications with original date entered in [facility]
Allergy/Medication List:
Allergies
Allergy/AdvReac Type Severity Reaction Status Date / Time
No Known Allergies Allergy Verified 06/17/24 13:30
Home Medications
acetaminophen 500 mg tablet (Tylenol Extra Strength) 500 mg PO DAILYPRN PRN pain 09/06/17
lisdexamfetamine 20 mg capsule (Vyvanse) 20 mg PO DAILY 09/06/17
cyanocobalamin (vitamin B-12) 1,000 mcg tablet 1,000 mcg PO DAILY #30 tabs 09/07/17
ferrous sulfate 325 mg (65 mg iron) tablet (Feosol) 325 mg PO DAILY #60 tabs 09/07/17
pantoprazole 40 mg tablet,delayed release 40 mg PO DAILY #30 tabs 09/07/17
hydrocortisone acetate 25 mg rectal suppository 25 mg SC HSPRN PRN Hemorroids #30 supp 09/08/17
Review of Systems
-
Constitutional: Reports See HPI, Fever and Chills
EENT: Reports No Symptoms
Respiratory: Reports No Symptoms
Cardiac: Reports No Symptoms
Abdomen/GI: Reports No Symptoms
: Reports No Symptoms
Musculoskeletal: Reports See HPI
Skin: Reports No Symptoms
Neurological: Reports No Symptoms
Endocrine: Reports No Symptoms
Hematologic/Lymphatic: Reports No Symptoms
Psych: Reports No Symptoms
Physical Exam
Vital Signs
Vital Signs
Temp Pulse Resp BP Pulse Ox
102.4 F H 117 18 118/55 90
11/06/24 16:50 11/06/24 16:50 11/06/24 16:50 11/06/24 16:50 11/06/24 16:53
Physical Exam
General: Well Developed, Well Nourished and No Apparent Distress
HEENT: NormoCephalic, Moist mucous membranes, Atraumatic and Other (icteric sclera ); No Anicteric
Respiratory: Clear
Cardiac: S1/S2 and Regular Rhythm; No Murmur or Rub
GI: Soft, Non Distended, Normal Bowel Sounds and Tender; No Organomegaly
Rectal: Deferred by Provider
Musculoskeletal: No Clubbing and No Cyanosis
Skin: No Rash
Neuro: Nonfocal/grossly intact
Laboratory Results
-
11/06/24 14:34
11/06/24 14:34
Laboratory Results
Total Bilirubin 12.2 mg/dl (0.2-1.3) H 11/06/24 14:34
AST 150 U/L (14-36) H 11/06/24 14:34
ALT 51 U/L (0-35) H 11/06/24 14:34
Alkaline Phosphatase 242 U/L (38-126) H 11/06/24 14:34
Data Reviewed
-
Lab Data: Labs Reviewed by me
Old Records: Reviewed
Impression/Plan
-
VS
11/06/24
16:50
Temp 102.4 F H
Pulse 117
Resp Rate 18
Blood pressure 118/55
Abnormal Lab
11/06/24
14:34
WBC 14.7 H
RBC 2.67 L
Hgb 9.3 L
Hct 28.3 L
MCV 106.0 H
MCH 34.8 H
MCHC 32.9 L
RDW 18.0 H
Plt Count 71 L
Abs Immat Gran (auto) 0.2 H
Absolute Neuts (auto) 11.8 H
Absolute Lymphs (auto) 1.0 L
Absolute Monos (auto) 1.7 H
Immature Gran % 1.5 H
Neutrophils % 80.1 H
Lymphocytes % 6.5 L
Monocytes % 11.4 H
Sodium 130 L
Total Bilirubin 12.2 H
AST 150 H
ALT 51 H
Alkaline Phosphatase 242 H
Albumin 2.8 L
LA pending
BCx sent
CXR:
1. LARGE DENSE BILATERAL LOWER LOBE AIRSPACE CONSOLIDATIONS (right larger than left).
Diagnostic possibilities are (1) bilateral lower lobe pneumonia or (2) compressive atelectasis.
2. MODERATE-SIZED RIGHT and SMALL to MODERATE-SIZED LEFT PLEURAL EFFUSIONS.
08/27/24 EGD
- Normal esophagus.
- Rekha-en-Y gastrojejunostomy.
- Portal hypertensive gastropathy.
- Normal examined jejunum.
- No specimens collected.
Last hospitalist admission: DATE OF ADMISSION: 10/12/2024 - DATE OF DISCHARGE: 10/16/2024
DISCHARGE DIAGNOSES:
1. Generalized edema and anasarca in patient with alcoholic
cirrhosis.
2. Hepatic encephalopathy.
3. Coagulopathy secondary to cirrhosis.
4. Severe alcohol use disorder, ongoing drinking, with no evidence
of delirium tremens over this admission.
5. Status post Rekha-en-Y gastric bypass in 2011.
6. History of perforated duodenal ulcer.
7. Severe alcohol disorder.
8. Anxiety.
9. Attention deficit hyperactivity disorder.
ASSESSMENT & PLAN
Pending Rx reconciliation
B/l LLL PNA associated sepsis ( T 102, ST, hi WCC )
Borderline Hypotension
- presumed HAP thus switched to Vancomycin and Zosyn
- Septic IVF - switch to LR
- Hold off further IV Lasix for now
- f/u BCx
Anasarca due to chronic volume expansion from 3rd spacing with worsening peripheral edema
Decompensated alcoholic cirrhosis HX with synthetic dysfunction such as hypoalbuminemia
No flapping tremor
HX Non compliant with Diuretics, Lactulose, 2 g sodium diet either.
- check NH3
- c/w Rifaximin
- c/w lactulose
- Hold Lasix /Aldactone due to sepsis woth borderline hypotension
- 2 gram Na diet
- GI consult
HX ETOH hepatitis was treated with prednisolone in the past
Recently had relapsed and was drinking again
Given HX anastomotic ulcer including perforated DU and hold off on Prednisone on last admission
- on naltrexone
HX Chr Anemia
- no bleeding and endoscopy in August showed portal gastropathy no varices status post Rekha-en-Y
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
Relatively stable Platelets but trending down.
- No active bleeding
- trend Platelets
Anxiety HX
Pending Rx reconciliation
Known HX
HX Rekha-en-Y gastric bypass in 2011
HX perforated ulcer
HX GIB secondary to anastomotic ulcer in the duodenum: continue Protonix
Chronic anemia due to anemia of chronic disease on : Continue B12
GERD: on Protonix
ADHD
HX internal hemorrhoids
HX tobacco use: Social smoker
DVT Px: SCD
Full code
IMU
[2024-11-06] MEDS: ROCEPHIN 1000 MG IV (18:05)
[2024-11-06] MEDS: LASIX 40 MG IV (18:05)
[2024-11-06] MEDS: VIBRAMYCIN 100 MG PO (18:05)
[2024-11-06] MEDS: NSS 2000 IV (18:09)
[2024-11-06 18:30] LABS: Lactic Acid 3.1 mmol/L (0.7-2.0)
[2024-11-06 19:00] VITALS: BP 105/56
[2024-11-06 19:15] LABS: Urine Albumin Trace (Neg - Trace); Urine Bilirubin 3+ (Negative); Urine Character Clear (Clear); Urine Color Amber; Urine Glucose Negative (Negative); Urine Ketone Trace (Negative); Urine Leukocyte 1+ (Negative); Urine Nitrite Positive (Negative); Urine Occult Blood Negative (Negative); Urine Urobilinogen 3+ (Neg - 1+)
[2024-11-06 19:29] LABS: Urine Mucus Many
[2024-11-06 19:30] LABS: Urine Amorphous Seen; Urine Bacteria Few (Negative); Urine Red Blood Cell 0-2 /HPF (0-2)
[2024-11-06 20:00] VITALS: BP 115/55
--- NOTE | 2024-11-06 21:12 | EDRN ---
Nilam from [facility] called for report
[2024-11-06 21:35] LABS: Lactic Acid 1.3 mmol/L (0.7-2.0)
[2024-11-06 22:00] VITALS: BP 116/50
--- NOTE | 2024-11-06 22:00 | PTCARENOTE ---
Pt admit from ED via stretcher. Assisted into bed and made comfortable. Placed on monitor-Sinus tach. Remains febrile but temp improved from earlier. Assessment as charted.
[2024-11-06] MEDS: ZOSYN 50 IV (22:16)
[2024-11-06] MEDS: DUPHALAC/CHRONULAC 20 GRAMS PO (22:16)
[2024-11-06] MEDS: XIFAXAN 550 MG PO (22:16)
[2024-11-06 22:42] VITALS: BMI 34.0
[2024-11-06 23:00] VITALS: BP 106/54
[2024-11-06] MEDS: VANCOCIN 540 MG IV (23:12)
[2024-11-07] VITALS (20 sets, daily range): BP systolic 94–123; BP diastolic 53–79; BMI 34.4
[2024-11-07] MEDS: ZOSYN 50 IV ×4 (04:41→21:59)
[2024-11-07 05:07] LABS: Hematocrit 25.8 % (37.0-47.0); Hemoglobin 8.3 g/dL (12.0-16.0); Mean Corp Hgb Conc. 32.2 g/dL (33.0-37.0); Mean Corpuscular Hgb 34.6 pg (27.0-31.0); Mean Corpuscular Volume 107.5 fL (81.0-99.0); Mean Platelet Volume 10.3 fL (7.4-10.4); Platelet Count 62 10^3/uL (130-400); Red Cell Dist. Width 18.2 % (11.5-14.5); White Blood Cell Count 16.3 10^3/uL (4.8-10.8)
[2024-11-07 05:13] LABS: Ammonia 19 umol/L (9-30)
[2024-11-07 05:17] LABS: ALT (SGPT) 50 U/L (0-35); AST (SGOT) 145 U/L (14-36); Albumin 2.5 g/dl (3.5-5.0); Alkaline Phosphatase 189 U/L (38-126); Blood Urea Nitrogen 12 mg/dl (7-17); Calcium 7.6 mg/dl (8.4-10.2); Carbon Dioxide 22 mmol/L (22-30); Chloride 102 mmol/L (98-107); Estimated Creatinine Clearance 99 ml/min; Glucose 120 mg/dl (70-99); Potassium 4.3 mmol/L (3.5-5.1); Sodium 132 mmol/L (135-145); Total Bilirubin 12.6 mg/dl (0.2-1.3); Total Protein 6.5 g/dl (6.3-8.2); eGFR > 60.00
--- NOTE | 2024-11-07 06:11 | PTCARENOTE ---
Received pt from ED on O2 2l NC but sat 80's. O2 increased to 4L. Sat low 90's most of the night. Sat now 87%. O2 increased to 6L. Will continue to monitor.
--- NOTE | 2024-11-07 06:47 | CON.GI ---
Addendum entered and electronically signed by Bianca Kaur Do, MD 11/07/24 11:53:
I saw and examined the patient.
The VAC PRESS OPERATOR's note was reviewed and I agree with the note.
Comment: Laila is a 39yo W with h/o ETOH hepatitis and cirrhosis decompensated by hepatic encephalopathy, diffuse anasarca who was admitted for SOB and fever. She lives with 8yo son and last drink of ETOH is a few weeks ago. She is known to
Declan at [facility] for transplant evaluation. Vitals tachycardia exam jaundice icteric abd swollen, NTTP, decrease breath sounds bilaterally. 2+ pitting edema. Labs and imaging reviewed.
Impression
- Bacteremia with possible bilateral PNA
- Pleural effusion
- Decompensated ETOH cirrhosis with MELD 29
- H/o hepatic encephalopathy
- Diffuse body anasarca
- H/o gastric bypass
- ADHD
- Anxiety/depression
- h/o PUD s/p surgical repair of perforated DU
Recommendations
- Abd US and paracentesis if there is ascites
- Case d/w pulm and agree with thoracentesis as well
- IR consulted
- C/w abx
- Repeat blood cultures tomorrow
- Hold diuretics in setting of acute infection
- Ammonia normal: c/w xifaximin and lactulose
- C/w PPI
Case d/w Dr Manriquez [facility] transplant child development assistant 11/07/2024 via phone and she is currently critically ill with liver failure MELD 29 but NOT transplant candidate until sober 3 months time.
Prognosis poor
Case d/w RN, pulm critical care and care teams at [facility] over 55mins spent
Will follow with you
Addendum entered and electronically signed by COLIN Munguia 11/07/24 09:13:
will add orders for limited US and diagnostic/therapeutic para if enough fluid to tap as now also noted with bacteremia with gram + cocci on blood cx.
Original Note:
Consultation
-
Date/Time Consultation Requested: 11/06/24 8940
Date/Time Consultation Performed: 11/06/24 4988
Requesting Provider: COLIN Man
Performing Provider: COLIN Hernandez, Bianca Muñoz MD
Reason for Consultation: decompensated liver disease
Medical History
Chief Complaint / HPI
Chief Complaint: anasarca, shortness of breath
History of Present Illness:
Patient is a 39yo with hx of gastric bypass (2011), ADHD, anxiety/depression, GI bleed with anatomic ulcer, perforated duodenal ulcer s/p surgical repair, internal hemorrhoids, GERD, ETOH hepatitis/cirrhosis with admission in June 2024 with
ascites. Per records she was initially admitted to [place] with and given Prednisolone course. Unfortunately when seen in August and October with continued with ETOH use and was started on Naltrexone. During the October admission she had
continued anasarca and also developed hepatic encephalopathy with ammonia up to 104 during that admission. She was noted with non compliance with medication and counseled on severity of illness with need for close GI and hepatology followup. During
admission Liver serology work up with neg PALAK, AMA, SLA, LKM,A1At, and ceruloplasmin, borderline hep A total with neg hep B and C. Irons studies with ferritin 373, iron 86, TIBC 204, iron sat 24. Prior tox screen + amphetamines otherwise neg. Pt
was discharged 10/16. She did have follow up with Dr. Manriquez - hepatology at [facility]. Per patient she had long discussion with degree of illness and was to proceed with PETH testing and would need 2 negative tests to proceed with further work up.
She now returns with shortness of breath, cough, fever and chills with concern for PNA with large b/l lower lobe airspace consolidation along with moderate right and small to moderate left pleural effusion with concern for worsening hypoxemia after
admission.
At this time patient lethargic but answering most questions. She admits to continued shortness of breath, fluid overload with mild distention and mostly LE swelling, and occasional rectal bleeding. She denies GERD, nausea, vomiting,
abdominal pain, diarrhea, constipation or black stools. Labs on admission with leukocytosis, continued anemia, thrombocytopenia, hypoalbuminemia, coagulopathy all consistent with known liver disease. AFP 6.92 in June. Last colonoscopy 2016
with fair prep and hemorrhoids.
Past Medical History
Past Medical History: GERD, Psychiatric (depression/anxiety) and Other (ETOH hepatitis with decompensation with ascites, HE, portal HTN, GI ulcer, fatty liver, internal hemorrhoids)
Past Surgical History: Other (Gastric bypass, perforated duodenal ulcer with surgical repair)
Social History
Tobacco: Smoker
Alcohol: Chronic Alcoholic (last in October 2024 )
Drug: None
Living: With Family (forepart laster with son)
Employment: Not Employed
Family History
Family History: Other (father with colon CA, mother colon polyps, sister with polyps, family hx ETOH issue)
Allergies / Home Medications
Allergy/AdvReac Type Severity Reaction Status Date / Time
No Known Allergies Allergy Verified 11/06/24 14:18
�Medication �Instructions �Recorded
dextroamphetamine-amphetamine 30 30 mg PO BID Neurological Condition 06/17/24
mg tablet
folic acid 1 mg tablet 1 mg PO DAILY Supplement 06/17/24
therapeutic multivitamin 1 tab PO DAILY Supplement 06/17/24
vitamin B complex 1 cap PO DAILY Supplement 06/17/24
ferrous sulfate 325 mg (65 mg 325 mg PO DAILY Supplement 10/13/24
iron) tablet
furosemide 40 mg tablet 40 mg PO DAILY Fluid 10/13/24
Retention/Swelling
naltrexone 50 mg tablet 50 mg PO DAILY alcohol use disorder 10/13/24
pantoprazole 40 mg tablet,delayed 40 mg PO DAILY Gastrointestinal 10/13/24
release Issue
venlafaxine 75 mg capsule,extended 75 mg PO DAILY 10/13/24
release 24 hr
lactulose 20 gram/30 mL oral 20 g (30 mL) PO TID #3,000 mL 10/16/24
solution
rifaximin 550 mg tablet (Xifaxan) 550 mg PO BID #60 tabs 10/16/24
spironolactone 100 mg tablet 100 mg PO DAILY 11/06/24
Review of Systems
-
Unable to obtain full review of systems at this time due to: Other (some lethargy in exam )
History Source: Patient
Constitutional: Reports Fever, Weight Gain and Fatigue
EENT: Reports No Symptoms
Respiratory: Reports Cough and Trouble Breathing
Cardiac: Reports Chest Pain
Abdomen/GI: Reports Other (mild distention )
: Reports Dark Urine
Musculoskeletal: Reports No Symptoms
Skin: Reports No Symptoms
Neurological: Reports Dizzy and Weakness
Endocrine: Reports No Symptoms
Hematologic/Lymphatic: Reports Bleeding (occasional rectal bleeding)
Vital Signs
Temp Pulse Resp BP Pulse Ox
98.4 F 110 18 97/55 88
11/07/24 04:29 11/07/24 06:00 11/07/24 06:00 11/07/24 06:00 11/07/24 06:00
Physical Exam
Exam
General: Other (noted with some lethargy but answering questions and mild dyspnea at rest )
HEENT: Normocephalic and Other (marked jaundice )
Respiratory: Other (occasional cough, decreased bases b/l, sat 88-90% at 6 liters )
Cardiac: Peripheral Edema (+3 ) and Other (tachy )
GI: Soft, Non Tender and Distended (mild )
Musculoskeletal: No Clubbing and No Cyanosis
Skin: Warm and Dry
Neuro: Other (awakens to voice, answers most questions )
Psych: Calm
Results
WBC 16.3 10^3/uL (4.8-10.8) H 11/07/24 04:38
Hgb 8.3 g/dL (12.0-16.0) L 11/07/24 04:38
Hct 25.8 % (37.0-47.0) L 11/07/24 04:38
MCV 107.5 fL (81.0-99.0) H 11/07/24 04:38
Plt Count 62 10^3/uL (130-400) L 11/07/24 04:38
Absolute Neuts (auto) 11.8 10^3/uL (1.4-6.5) H 11/06/24 14:34
Sodium 132 mmol/L (135-145) L 11/07/24 04:38
Potassium 4.3 mmol/L (3.5-5.1) 11/07/24 04:38
Chloride 102 mmol/L (98-107) 11/07/24 04:38
Carbon Dioxide 22 mmol/L (22-30) 11/07/24 04:38
BUN 12 mg/dl (7-17) 11/07/24 04:38
Creatinine 0.8 mg/dL (0.6-1.0) 11/07/24 04:38
Calcium 7.6 mg/dl (8.4-10.2) L 11/07/24 04:38
Total Bilirubin 12.6 mg/dl (0.2-1.3) H 11/07/24 04:38
AST 145 U/L (14-36) H 11/07/24 04:38
ALT 50 U/L (0-35) H 11/07/24 04:38
Alkaline Phosphatase 189 U/L (38-126) H 11/07/24 04:38
Diagnostic Image Results:
10/09/24 - fibroscan F4 cirrhosis
10/12/24 US abdomen
1. Gallbladder sludge without convincing sonographic evidence for acute cholecystitis.
2. Increased echogenicity in the liver, compatible with underlying hepatocellular disease, which most commonly relates to fatty infiltration of the liver.
3. Splenomegaly.
11/06/24- CXR
1. LARGE DENSE BILATERAL LOWER LOBE AIRSPACE CONSOLIDATIONS (right larger than left). Diagnostic possibilities are (1) bilateral lower lobe pneumonia or (2) compressive atelectasis.
2. MODERATE-SIZED RIGHT and SMALL to MODERATE-SIZED LEFT PLEURAL EFFUSIONS.
Prior GI Procedures:
EGD: 08/2024 [facility] - Normal esophagus.
- Rekha-en-Y gastrojejunostomy.
- Portal hypertensive gastropathy.
- Normal examined jejunum.
- No specimens collected.
EGD 2016
- Normal esophagus.
- Z-line regular, 38 cm from the incisors.
- Rekha-en-Y gastrojejunostomy with gastrojejunal
anastomosis characterized by healthy appearing mucosa.
- Normal stomach. Biopsied.
- One non-bleeding superficial chronic anastomotic
duodenal ulcer with no stigmata of bleeding. Biopsied.
- Duodenal foreign body (metal suture) .
- Normal examined duodenum. Biopsied.
bx anastomic ulcer, neg H pylori
Colonoscopy: 2016
- Preparation of the colon was fair. Liquid brown stool
in the entire examined colon. No blood seen.
- Non-bleeding internal hemorrhoids.
- The entire examined colon is normal.
- The examined portion of the ileum was normal.
- No specimens collected.
Assessment / Plan
-
Patient is a 39yo with hx of gastric bypass (2011), ADHD, anxiety/depression, GI bleed with anatomic ulcer, perforated duodenal ulcer s/p surgical repair, internal hemorrhoids, GERD, ETOH hepatitis/cirrhosis with admission in June 2024 with
ascites. Per records she was initially admitted to [place] with and given Prednisolone course. Unfortunately when seen in August and October with continued with ETOH use and was started on Naltrexone. During the October admission she had
continued anasarca and also developed hepatic encephalopathy with ammonia up to 104 during that admission. She was noted with non compliance with medication and counseled on severity of illness with need for close GI and hepatology followup. During
admission Liver serology work up with neg PALAK, AMA, SLA, LKM,A1At, and ceruloplasmin, borderline hep A total with neg hep B and C. Irons studies with ferritin 373, iron 86, TIBC 204, iron sat 24. Prior tox screen + amphetamines otherwise neg. Pt
was discharged 10/16. She did have follow up with Dr. Manriquez - hepatology at [facility]. Per patient she had long discussion with degree of illness and was to proceed with PETH testing and would need 2 negative tests to proceed with further work up.
She now returns with shortness of breath, cough, fever and chills with concern for PNA with large b/l lower lobe airspace consolidation along with moderate right and small to moderate left pleural effusion with concern for worsening hypoxemia after
admission.
-b/l PNA/pleural effusion
-leukocytosis/ fever with sepsis with increased O2 requirement after admission
-ETOH hepatitis/cirrhosis with decompensation
-anasarca
-hepatic encephalopathy
-ETOH abuse disorder -last ETOH early October
-portal gastropathy on EGD
-coagulopathy
-anemia
-hypoalbuminemia
-thrombocytopenia
-rectal bleeding
-gallbladder sludge on imaging
-splenomegaly
other med problems:
-hx gastric bypass
-ADHD
-anxiety
-hx GI bleed, duodenal ulcer with repair
-hx hemorrhoids
-GERD
-family hx colon CA/polyps
Recommendations:
Pt with concern for continued decompensated ETOH hepatitis/cirrhosis with recent ETOH use in October and now with PNA with sepsis
cont rx for PNA per medical team-- I sent message to Dr. Muñoz for eval as worsening hypoxemia overnight now 88-90% on 6 liters t/c pulm/ID eval to eval if effusion can be tapped
current MELD 3.0 29 up from 26 in October cont to trend MELD labs
pt was on Lasix 40mg and Spironolactone 100mg prior to admission now on hold - will review with Dr. Muñoz for resuming low dose as wt gain since prior admission but some hypotension noted
cont Lactulose TID and Xifaxan BID-- monitor mental status-- at risk for decompensation with PNA
2 gram na diet as tolerated -- will add supplement daily -- needs good nutrition
per pt last ETOH early October-- monitor for any withdrawal
stressed need to be sober-- per pt recent PETH testing completed last week awaiting results
serology work up as noted
eventual hep A and B vaccination-- hep A borderline immunity no immunity to hep B
eventual OP colonoscopy with family hx
Pt is scheduled follow up with Dr. Gallardo at end of November and will need serial labs with Dr. Manriquez
reviewed with nursing staff close monitoring of resp status with worsening hypoxemia overnight
-
-
Thank you for consultation and allowing me to participate in the patient's care. Please call the [facility] GI physician during the after hours with any questions or concerns.
--- NOTE | 2024-11-07 07:18 | W.PN.HOSP.TC ---
Today's Communication/Plan
-
see bold
Assessment / Plan
Assessment / Plan
HPI: 39F HX Non compliance with Meds, 2 gm Na Diet, HX alcohol hepatitis, alcohol cirrhosis, status post Rekha-en-Y gastric bypass, perforated DU status post repair, GI bleed from anastomotic ulcer rest as below and was treated in the past with
prednisolone seen at ER
- for evaluation after she started feeling unwell with shortness of breath, cough, fevers, chills
- symptoms seem to be worse prompting her to come to the ER for further evaluation.
- No known sick contacts, recent travel or recent antibiotics.
- admit to some lower extremity edema and did not take her diuretics today.
- Did not take any medications prior to arrival for her fever
Assessment/plan:
#Sepsis secondary to pneumonia
#Bacteremia
#Acute hypoxic respiratory failure
Appreciate pulmonology input, patient will need thoracentesis given her positive blood cultures
2 out of 2 blood cultures positive for gram-positive cocci, repeat blood cultures in the a.m.
Continue vancomycin/Zosyn, consult IR for thoracentesis
Currently requiring 4 L of oxygen, down from 6
Trend fever and white count
#Abdominal ascites/peripheral edema secondary to decompensated alcoholic cirrhosis
#Hyperbilirubinemia/jaundice
#Anasarca
#History of hepatic encephalopathy
Follows with Dr. Declan [facility] transplant fiberglass finisher
Appreciate GI input, check abdominal ultrasound, and get paracentesis if there is enough ascites
Hold diuretics in the setting of acute infection
Continue Xifaxan and lactulose
#History of peptic ulcer disease status postsurgical repair of perforated duodenal ulcer
#GERD
Continue PPI
Alcohol use disorder
-Last alcohol use a few weeks ago in early October 2024
-Alcohol cessation counseling has been provided
Anxiety
-Continue SSRI
History of Rekha-en-Y gastric bypass in 2011
Chronic anemia secondary to anemia of chronic disease
-Continue ferrous sulfate
-Continue B12
-Trend hemoglobin
Thrombocytopenia secondary to cirrhosis
-Platelets stable
History of internal hemorrhoids
ADHD
History of tobacco use
-Social smoker
DVT prophylaxis�SCDs
Full code
Total time spent to see the patient on the floor, examine the patient, review data and lab results, discuss treatment plan with patient, nursing staff around 51 minutes.
Physical Exam
General: Obese, appears to not feel well, no acute distress
HEENT: Normocephalic, Atraumatic, EOMI, MMM, icteric sclerae
Respiratory: Diminished breath sounds at the bases bilaterally
Cardiac: Normal S1/S2, Regular Rate and Rhythm
GI: Soft, Nontender, abdominal distention noted
Extremities: No Clubbing, Cyanosis
Bilateral lower extremity edema noted
Neuro: Nonfocal/Grossly Intact
Psych: Calm, Cooperative
Derm: Jaundiced
.
Anticipated Discharge: > 48 hours
Subjective/Interval History
-
Date of Service: November 07, 2024
Patient reports that her shortness of breath has improved. Her cough is the same. Fever resolved. No nausea, no vomiting.
Objective Data
-
Labs:
Laboratory Results
11/07/24
04:38
WBC 16.3 H
Hgb 8.3 L
Hct 25.8 L
Plt Count 62 L
Sodium 132 L
Potassium 4.3
Chloride 102
Carbon Dioxide 22
BUN 12
Creatinine 0.8
Glucose 120 H
Calcium 7.6 L
Total Bilirubin 12.6 H
AST 145 H
ALT 50 H
Alkaline Phosphatase 189 H
Vital Signs:
Vital Signs
Temp Pulse Resp BP Pulse Ox
98.4 F 110 18 97/55 88
11/07/24 04:29 11/07/24 06:00 11/07/24 06:00 11/07/24 06:00 11/07/24 06:00
I&O
11/06/24 11/07/24 11/08/24
06:59 06:59 06:59
Intake Total 640 / 640
Balance 640 / 640
[2024-11-07] MEDS: PROTONIX 40 MG PO (07:54)
[2024-11-07] MEDS: DUPHALAC/CHRONULAC 20 GRAMS PO ×3 (07:54→20:16)
[2024-11-07] MEDS: EFFEXOR XR 75 MG PO (07:54)
[2024-11-07] MEDS: FEOSOL 325 MG PO (07:56)
[2024-11-07] MEDS: FOLVITE 1 MG PO (07:56)
[2024-11-07] MEDS: XIFAXAN 550 MG PO ×2 (07:56→20:16)
[2024-11-07] MEDS: REVIA 50 MG PO (07:56)
--- NOTE | 2024-11-07 08:33 | PTCARENOTE ---
Assumed care of patient this AM. Patient drowsy, easily arousable. AAOx3. Sp02 low 90's on 6L O2 VIA N/C. Lungs diminished, patient SOB on exertion. ST on monitor, HR currently low 100's at rest. Afebrile this morning. BP's stable. Abdomen
full with positive bowel sounds. +3 lower extremity edema with a generalized anasarca. Jaundice skin and sclera. Patient took medications without any difficulty. Will continue to monitor.
--- NOTE | 2024-11-07 09:20 | PHA.VAN.IN ---
Assessment
- Assessment
Renal Function: Unknown baseline
Renal Function may be Overestimated due to: Obesity. BMI = 34.4
Maximum Temperature: 102.2
Minimum Temperature: 98.4
Concomitant Antimicrobials: Piperacillin-tazobactam; rifaximin
AUC Dosing Plan
- Dosing Variables
Dosing Weight (kg): 88.1
Dosing CrCl (ml/min): 99
Vd coefficient (L/kg): 0.7
- Empiric Dosing
Initial / Loading Dose: Vanc 2000mg given 11/06 at 2312
Maintenance Regimen: Vanc 1250mg IV q12H
Estimated AUC (mcg*h/mL): 498.73
Estimated Peak (mcg*h/mL): 31.37
Estimated Trough (mcg/ml): 12.64
Estimated Half Life (H): 8
- Monitoring
No levels ordered at this time: Consider levels after 11/08 1800 dose
Pharmacokinetics Vancomycin I
- -
Patient Age: 39
Patient Sex: Female
Vancomycin Day #: 1
Indication: Pulmonary/Respiratory
Requesting Provider: Carla Rausch
Height / Weight:
Height 5 ft 3 in
Actual Weight 88.1 kg
IBW in k.4
Adjusted BW in k.3
Pertinent Past Medical History: Alcoholic cirrhosis; BMI 34.4
- Vital Signs / Lab Results
Temp Pulse Resp BP Pulse Ox
98.4 F 103 22 114/60 91
11/07/24 04:29 11/07/24 08:02 11/07/24 08:02 11/07/24 08:02 11/07/24 08:04
Lab Results - Hematology
11/06/24 11/07/24
14:34 04:38
WBC 14.7 H 16.3 H
Lab Results - Chemistry
11/06/24 11/07/24
14:34 04:38
BUN 12 12
Creatinine 0.8 0.8
Estimated Creat Clear 99
Albumin 2.8 L 2.5 L
11/06/24 11/06/24
18:02 21:19
Lactic Acid 3.1 H 1.3
Lab Results - Urine
11/06/24
19:03
Urine Nitrite (Reflex) Positive A
Leukocyte Esterase Rfl 1+ A
Urine WBC (Reflex) 3-5
Ur Squamous Epith Cells 3-5
Urine Bacteria (Reflex) Few A
Microbiology Results
11/06/24 19:03 Legionella Urinary Antigen - Final
Urine Negative for Legionella pneumophila Serogroup 1 antigen.
A negative result does not rule out the possiblity of
Legionella infection due to other serogroups or species of
Legionella. Clinical correlation is recommended.
Streptococcus pneumoniae Antigen (M - Final
Negative for Streptococcus pneumoniae antigen.
A negative result does not exclude infection with
Streptococcus pneumoniae. Clinical correlation is
recommended.
11/06/24 18:02 Blood Culture - Preliminary
Blood/Venous Positive culture in progress
Gram Stain - Preliminary
11/06/24 18:02 Blood Culture - Preliminary
Blood/Venous Positive culture in progress
Gram Stain - Preliminary
11/06/24 14:35 Influenza Types A & B (NUSRAT) - Final
Nasal Swab Negative for Influenza A & B, NAAT
Negative results must be combined with clinical observations
and patient history.
Nucleic Acid Amplification test (NAAT)performed on the
[employer] platform.
[2024-11-07] MEDS: FLUSH (NSS) 2 FLUSH IV (11:18)
--- NOTE | 2024-11-07 11:27 | CM ---
Initial assessment completed at bedside
Pharmacy verified: [facility] [address], [place]
Patient lives in a multilevel home w/ 8 yr old son; powder room 1st floor; 2nd floor bath has tub w/shower
PLOF: reported she is independent with ambulation, stairs, and ADLs; unemployed; drives
NO DME
NO SNF
Mother will transport home
Plan: CM will monitor for discharge needs and support accordingly
[2024-11-07] MEDS: VANCOCIN 275 MG IV ×2 (12:25→17:34)
--- NOTE | 2024-11-07 14:40 | CON.PUL ---
Consultation
Consultation Request
Date/Time Consultation Requested: 11/07/2024
Date/Time Consultation Performed: 11/07/2019
Requesting Provider: Dr. Steward
Performing Provider: Dr. Sai Barbosa
Reason for Consultation: Pneumonia/pleural effusion
Medical History
-
History of Present Illness:
39-year-old woman with history of advanced cirrhosis, noncompliance with medication or dietary modifications, status post Rekha-en-Y gastric bypass, perforated duodenal ulcer status post repair, history of GI bleed from anastomotic ulcer in the past.
Evaluated in the emergency room 11/06/2024 for worsening shortness of breath, not feeling well. Reported cough, fevers and chills.
As the symptoms were worsening she came to the emergency room for evaluation.
Denies nausea vomiting diarrhea open
Denies any sick contacts.
Reports lower extremity edema, did not take diuretics in the last 24 hours.
-
Denies urinary symptoms
Denies hemoptysis
-
Chest x-ray demonstrated worsening bilateral effusions with possible bilateral pneumonia both bases. We were consulted for evaluation
Past Medical History
Past Medical History: Other (See assessment and plan)
Social History
Tobacco: Smoker
Alcohol: Former (Unclear last drink)
Drug: None
Family History
Family History: Reviewed & Not Pertinent
Allergies / Home Medications
Allergies
Allergy/AdvReac Type Severity Reaction Status Date / Time
No Known Allergies Allergy Verified 11/06/24 14:18
Home Medications
�Medication �Instructions �Recorded �Confirmed �Last Taken �Type
dextroamphetamine-amphetamine 30 30 mg PO BID Neurological Condition 06/17/24 11/06/24 06/17/24 History
mg tablet
folic acid 1 mg tablet 1 mg PO DAILY Supplement 06/17/24 11/06/24 06/17/24 History
therapeutic multivitamin 1 tab PO DAILY Supplement 06/17/24 11/06/24 06/17/24 History
vitamin B complex 1 cap PO DAILY Supplement 06/17/24 11/06/24 06/17/24 History
ferrous sulfate 325 mg (65 mg 325 mg PO DAILY Supplement 10/13/24 11/06/24 Unknown History
iron) tablet
furosemide 40 mg tablet 40 mg PO DAILY Fluid 10/13/24 11/06/24 Unknown History
Retention/Swelling
naltrexone 50 mg tablet 50 mg PO DAILY alcohol use disorder 10/13/24 11/06/24 Unknown History
pantoprazole 40 mg tablet,delayed 40 mg PO DAILY Gastrointestinal 10/13/24 11/06/24 Unknown History
release Issue
venlafaxine 75 mg capsule,extended 75 mg PO DAILY Mental 10/13/24 11/06/24 Unknown History
release 24 hr Health/Anxiety
lactulose 20 gram/30 mL oral 20 g (30 mL) PO TID #3,000 mL 10/16/24 11/06/24 Unknown Rx
solution
rifaximin 550 mg tablet (Xifaxan) 550 mg PO BID #60 tabs 10/16/24 11/06/24 Unknown Rx
spironolactone 100 mg tablet 100 mg PO DAILY Blood Pressure 11/06/24 11/06/24 Unknown History
Review of Systems
-
History Source: Patient
All other systems: Negative unless noted
Vitals / Labs / Diagnostic Testing
Vital Signs
Temp Pulse Resp BP Pulse Ox
98.1 F 102 22 111/59 91
11/07/24 10:50 11/07/24 12:17 11/07/24 12:17 11/07/24 12:17 11/07/24 12:17
Lab Data
11/07/24 04:38
11/07/24 04:38
Microbiology
11/06/24 19:03 Urine Urine Culture - Final
NO GROWTH
11/06/24 19:03 Urine Legionella Urinary Antigen - Final
Negative for Legionella pneumophila Serogroup 1 antigen.
A negative result does not rule out the possiblity of
Legionella infection due to other serogroups or species of
Legionella. Clinical correlation is recommended.
11/06/24 19:03 Urine Streptococcus pneumoniae Antigen (M - Final
Negative for Streptococcus pneumoniae antigen.
A negative result does not exclude infection with
Streptococcus pneumoniae. Clinical correlation is
recommended.
11/06/24 18:02 Blood/Venous Blood Culture - Preliminary
Positive culture in progress
11/06/24 18:02 Blood/Venous Gram Stain - Preliminary
11/06/24 18:02 Blood/Venous Blood Culture - Preliminary
Positive culture in progress
11/06/24 18:02 Blood/Venous Gram Stain - Preliminary
11/06/24 14:35 Nasal Swab Influenza Types A & B (NUSRAT) - Final
Negative for Influenza A & B, NAAT
Negative results must be combined with clinical observations
and patient history.
Nucleic Acid Amplification test (NAAT)performed on the
[employer] platform.
Diagnostic Testing:
Physical Exam
-
HEENT: Normocephalic
Cardiovascular: S1/S2 and Peripheral Edema (2-3+ lower extremity chronic)
Respiratory: Other (Decreased breath sounds bilaterally on both bases)
GI: Soft and Distended
Neurology: Awake, Alert, AO x 3 and Other (No asterixis)
Skin: Warm
General: Comfortable (At rest)
Assessment
-
39-year-old woman with history of advanced cirrhosis, chronic lower extremity edema, admitted with shortness of breath/fevers found to have leukocytosis and bilateral infiltrates. We were consulted for pleural effusion and bilateral pneumonia on
11/07/2024
Acute hypoxemic respiratory failure: On 4 L-due to pneumonia
Abnormal chest x-ray: Bilateral effusions-bilateral lower lobe infiltrate suggestive of pneumonia
Chest x-ray: Large dense bilateral lower lobe airspace consolidation and right-sided pleural effusion moderate/small to moderate left pleural effusion.
Fever/cough/New leukocytosis bacteremia
Negative for streptococcal pneumonia negative Legionella antibody
Negative urine culture
Negative influenza
Negative COVID
Gram-positive cocci in chains 11/07/2024-identification pending.
Conditions present prior admission:
Recent hospital stay discharged 10/16/2024: Anasarca due to alcohol cirrhosis. Coagulopathy, ongoing drinking, DTs.
Gastric bypass 2011
ADHD
History of perforated ulcer 5 years ago
History of GI bleed secondary to anastomotic ulcer of the duodenum
Internal hemorrhoids
GERD
Anxiety
Alcohol abuse-unclear when was her last drink
Tobacco abuse
History of jaw surgery in the past unclear indication
Assessment and plan:
Clinical picture compatible with pneumonia including fever/leukocytosis/positive blood culture gram-positive cocci in chains.
Currently on 4 L-wean as able pulse ox is 92%
Not hypotensive or tachycardic
Does not appear toxic
Denies phlegm production.
-
Wait for final identification of blood culture
Sputum culture if able
Continue Zosyn and vancomycin
Will need thoracentesis giving positive blood cultures.
Will send for analysis and cultures
-
Incentive spirometer
Oxygen supplementation as needed to maintain pulse ox above 90%-currently on 4 L.
-
GI following: Recommended paracentesis.
Follow-up for hepatic encephalopathy
Unclear when was the last alcoholic drink-follow for withdrawal
-
Pulmonary will follow.
--- NOTE | 2024-11-07 16:30 | PTCARENOTE ---
Addendum entered by Elena Manzo RN 11/07/24 16:31:
Patient on 5L 02 sp02 91-95%. Patient SOB on exertion. Occasional dry cough. Patient denies any abdominal pain or discomfort. Denies nausea. Patient had 2 loose stools in the bathroom. Patient voiding fine. Appetite good. VS stable,
afebrile. Patient assist x1 to bathroom. SR on monitor HR 70-90's.
Original Note:
Pt
[2024-11-08] VITALS (16 sets, daily range): BP systolic 75–120; BP diastolic 37–64; PULSE 97; O2SAT 95
[2024-11-08] MEDS: ZOSYN 50 IV ×4 (03:43→22:11)
[2024-11-08 04:10] LABS: INR 2.87
[2024-11-08 04:12] LABS: Hematocrit 25.5 % (37.0-47.0); Hemoglobin 8.1 g/dL (12.0-16.0); Mean Corp Hgb Conc. 31.8 g/dL (33.0-37.0); Mean Corpuscular Hgb 34.8 pg (27.0-31.0); Mean Corpuscular Volume 109.4 fL (81.0-99.0); Mean Platelet Volume 10.1 fL (7.4-10.4); Platelet Count 57 10^3/uL (130-400); Red Blood Cell Count 2.33 10^6/uL (4.20-5.40); Red Cell Dist. Width 17.6 % (11.5-14.5); White Blood Cell Count 10.3 10^3/uL (4.8-10.8)
[2024-11-08 04:25] LABS: ALT (SGPT) 52 U/L (0-35); AST (SGOT) 129 U/L (14-36); Albumin 2.4 g/dl (3.5-5.0); Alkaline Phosphatase 217 U/L (38-126); Blood Urea Nitrogen 11 mg/dl (7-17); Carbon Dioxide 23 mmol/L (22-30); Chloride 102 mmol/L (98-107); Estimated Creatinine Clearance > 125 ml/min; Glucose 104 mg/dl (70-99); Magnesium 1.9 mg/dl (1.6-2.3); Phosphorus 3.2 mg/dl (2.5-4.5); Potassium 3.8 mmol/L (3.5-5.1); Sodium 131 mmol/L (135-145); Total Bilirubin 11.6 mg/dl (0.2-1.3); Total Protein 6.5 g/dl (6.3-8.2); eGFR > 60.00
--- NOTE | 2024-11-08 04:32 | PTCARENOTE ---
No acute events overnight. Afebrile. Remains on 5 liters NC.
[2024-11-08] MEDS: VANCOCIN 275 MG IV ×2 (05:42→17:18)
--- NOTE | 2024-11-08 08:28 | W.PN.HOSP.TC ---
Today's Communication/Plan
-
see bold
Assessment / Plan
Assessment / Plan
HPI: 39F HX Non compliance with Meds, 2 gm Na Diet, HX alcohol hepatitis, alcohol cirrhosis, status post Rekha-en-Y gastric bypass, perforated DU status post repair, GI bleed from anastomotic ulcer rest as below and was treated in the past with
prednisolone seen at ER
- for evaluation after she started feeling unwell with shortness of breath, cough, fevers, chills
- symptoms seem to be worse prompting her to come to the ER for further evaluation.
- No known sick contacts, recent travel or recent antibiotics.
- admit to some lower extremity edema and did not take her diuretics today.
- Did not take any medications prior to arrival for her fever
Assessment/plan:
#Sepsis secondary to pneumonia
#Bacteremia
#Acute hypoxic respiratory failure
#Right pleural effusion
Appreciate pulmonology input, status post Right thoracentesis draining 1100 mL of fluid on 11/09
2 out of 2 blood cultures positive for gram-positive cocci, repeat cultures, follow-up on ID and sensitivities
Continue vancomycin/Zosyn
Currently requiring 2 L of oxygen, down from 6
Trend fever and white count
#Transient hypotension during thoracentesis
Resolved, monitor
#Abdominal ascites/peripheral edema secondary to decompensated alcoholic cirrhosis
#Hyperbilirubinemia/jaundice
#Anasarca
#History of hepatic encephalopathy
Follows with Dr. Declan DUMONT transplant critical care registered nurse
Appreciate GI input, not enough ascites for paracentesis
MELD 31 and currently not transplant candidate
Resume diuretics today as per GI
Continue Xifaxan and lactulose
#History of peptic ulcer disease status postsurgical repair of perforated duodenal ulcer
#GERD
Continue PPI
Alcohol use disorder
-Last alcohol use a few weeks ago in early October 2024
-Alcohol cessation counseling has been provided
Anxiety
-Continue SSRI
History of Rekha-en-Y gastric bypass in 2011
Chronic anemia secondary to anemia of chronic disease
-Continue ferrous sulfate
-Continue B12
-Trend hemoglobin
Thrombocytopenia secondary to cirrhosis
-Platelets stable
History of internal hemorrhoids
ADHD
History of tobacco use
-Social smoker
DVT prophylaxis�SCDs
Full code
Total time spent to see the patient on the floor, examine the patient, review data and lab results, discuss treatment plan with patient, nursing staff around 50 minutes.
Physical Exam
General: Obese, appears to not feel well, no acute distress
HEENT: Normocephalic, Atraumatic, EOMI, MMM, icteric sclerae
Respiratory: Diminished breath sounds at the bases bilaterally
Cardiac: Normal S1/S2, Regular Rate and Rhythm
GI: Soft, Nontender, abdominal distention noted
Extremities: No Clubbing, Cyanosis
Bilateral lower extremity edema noted
Neuro: Nonfocal/Grossly Intact
Psych: Calm, Cooperative
Derm: Jaundiced
.
Anticipated Discharge: > 48 hours
Subjective/Interval History
-
Date of Service: November 08, 2024
Patient feels better. Her shortness of breath has improved status post thoracentesis today. She continues to have a cough. No fever, no vomiting.
Objective Data
-
Labs:
Laboratory Results
11/08/24
03:41
WBC 10.3
Hgb 8.1 L
Hct 25.5 L
Plt Count 57 L
PT 30.0 H
INR 2.87
Sodium 131 L
Potassium 3.8
Chloride 102
Carbon Dioxide 23
BUN 11
Creatinine 0.6
Glucose 104 H
Calcium 8.0 L
Total Bilirubin 11.6 H
AST 129 H
ALT 52 H
Alkaline Phosphatase 217 H
Vital Signs:
Vital Signs
Temp Pulse Resp BP Pulse Ox
97.8 F 96 21 109/57 95
11/08/24 07:20 11/08/24 04:00 11/08/24 04:00 11/08/24 04:00 11/08/24 04:00
I&O
11/07/24 11/08/24 11/09/24
06:59 06:59 06:59
Intake Total 640 / 640 2925 / 2925
Balance 640 / 640 2925 / 2925
--- NOTE | 2024-11-08 09:36 | PTCARENOTE ---
Rec'd pt this AM. Trasnported to [facility] for thoracentesis. AM meds to be given upon return to IMU. Pt AAO x3. on 5L NC. ambulates with assistance.
--- NOTE | 2024-11-08 09:45 | W.PN.UPDATE ---
Update Note
Progress Note Update
Right thoracentesis performed, yielding 1100 cc of serous fluid. Patient became hypotensive into the 70's systolic, and began to see spots, therefore fluid drainage was halted prematurely.
After thoracentesis, ultrasound was performed of the abdomen. Very small amount of ascites, insufficient quantity for paracentesis.
--- NOTE | 2024-11-08 09:48 | PHA.VAN.FU ---
Vancomycin Assessment / Plan
- Assessment
Renal Function: SCR Decreasing
WBC's are: Trending Down
In the past 24 hrs, patient has been: Afebrile
Concomitant Antimicrobials: Piperacillin-tazobactam
- Dosing Plan
Continue: Vanc 1250mg IV q12H
- Monitoring Plan
Peak Level: 5 at 2100
Trough Level: /6 at 0530
- Follow Up
Pharmacy will continue to follow.
Vancomycin Follow UP
- -
Patient Age: 39
Patient Sex: Female
Vancomycin Day #: 2
Indication: Pulmonary/Respiratory
Requesting Provider: Carla Rausch
Height / Weight:
Height 5 ft 3 in
Actual Weight 88.1 kg
IBW in k.4
Adjusted BW in k.3
Pertinent Past Medical History: Alcoholic cirrhosis; BMI 34.4
- Vital Signs / Lab Results
Temp Pulse Resp BP Pulse Ox
97.8 F 88 20 108/55 96
11/08/24 09:02 11/08/24 09:30 11/08/24 09:30 11/08/24 09:30 11/08/24 09:30
Lab Results - Hematology
11/06/24 11/07/24 11/08/24
14:34 04:38 03:41
WBC 14.7 H 16.3 H 10.3
Lab Results - Chemistry
11/06/24 11/07/24 11/08/24
14:34 04:38 03:41
BUN 12 12 11
Creatinine 0.8 0.8 0.6
Estimated Creat Clear 99 > 125
Albumin 2.8 L 2.5 L 2.4 L
11/06/24 11/06/24
18:02 21:19
Lactic Acid 3.1 H 1.3
Microbiology Results
11/06/24 18:02 Blood Culture - Preliminary
Blood/Venous Positive culture in progress
Gram Stain - Preliminary
11/06/24 19:03 Urine Culture - Final
Urine NO GROWTH
11/06/24 19:03 Legionella Urinary Antigen - Final
Urine Negative for Legionella pneumophila Serogroup 1 antigen.
A negative result does not rule out the possiblity of
Legionella infection due to other serogroups or species of
Legionella. Clinical correlation is recommended.
Streptococcus pneumoniae Antigen (M - Final
Negative for Streptococcus pneumoniae antigen.
A negative result does not exclude infection with
Streptococcus pneumoniae. Clinical correlation is
recommended.
11/06/24 18:02 Blood Culture - Preliminary
Blood/Venous Positive culture in progress
Gram Stain - Preliminary
11/06/24 14:35 Influenza Types A & B (NUSRAT) - Final
Nasal Swab Negative for Influenza A & B, NAAT
Negative results must be combined with clinical observations
and patient history.
Nucleic Acid Amplification test (NAAT)performed on the
[employer] platform.
[2024-11-08] MEDS: DUPHALAC/CHRONULAC 20 GRAMS PO ×3 (10:08→22:11)
[2024-11-08] MEDS: FEOSOL 325 MG PO (10:09)
[2024-11-08] MEDS: REVIA 50 MG PO (10:09)
[2024-11-08] MEDS: EFFEXOR XR 75 MG PO (10:09)
[2024-11-08] MEDS: FOLVITE 1 MG PO (10:09)
[2024-11-08] MEDS: XIFAXAN 550 MG PO ×2 (10:09→19:50)
[2024-11-08] MEDS: PROTONIX 40 MG PO (10:09)
[2024-11-08 10:21] LABS: Body Fluid pH 7.49
[2024-11-08 10:25] LABS: Body Fluid Mononuclear 90.5 %; Body Fluid Polymorphonuclear 9.5 %; Body Fluid WBC 668 /CUMM
[2024-11-08 10:37] LABS: Body Fluid Amylase < 30 U/L; Body Fluid Glucose 111 mg/dl; Body Fluid LDH 108 U/L; Body Fluid Protein < 2.0 g/dl
[2024-11-08 10:56] LABS: Body Fluid Second Tech CMB
--- NOTE | 2024-11-08 12:14 | W.PN.PUL3 ---
Today's Communication / Plan
-
Thoracentesis compatible with hepatic hydrothorax
Continue antibiotics for pneumonia/bacteremia
Wait for final identification
Follow cytology and culture from pleural fluid
Wean down FiO2 as able
Assessment
-
39-year-old woman with history of advanced cirrhosis, chronic lower extremity edema, admitted with shortness of breath/fevers found to have leukocytosis and bilateral infiltrates. We were consulted for pleural effusion and bilateral pneumonia on
11/07/2024
Acute hypoxemic respiratory failure: On 4 L-due to pneumonia
Abnormal chest x-ray: Bilateral effusions-bilateral lower lobe infiltrate suggestive of pneumonia
Chest x-ray: Large dense bilateral lower lobe airspace consolidation and right-sided pleural effusion moderate/small to moderate left pleural effusion.
Fever/cough/New leukocytosis bacteremia
Negative for streptococcal pneumonia negative Legionella antibody
Negative urine culture
Negative influenza
Negative COVID
Gram-positive cocci in chains 11/07/2024-identification pending.
Conditions present prior admission:
Recent hospital stay discharged 10/16/2024: Anasarca due to alcohol cirrhosis. Coagulopathy, ongoing drinking, DTs.
Gastric bypass 2011
ADHD
History of perforated ulcer 5 years ago
History of GI bleed secondary to anastomotic ulcer of the duodenum
Internal hemorrhoids
GERD
Anxiety
Alcohol abuse-unclear when was her last drink
Tobacco abuse
History of jaw surgery in the past unclear indication
Assessment and plan:
Clinical picture compatible with pneumonia including fever/leukocytosis/positive blood culture gram-positive cocci in chains.
Currently on 2 L-wean as able pulse ox is 92%, improved initially on 4 L.
Not hypotensive or tachycardic
Does not appear toxic-fever curve improved
Denies phlegm production.
-
Wait for final identification of blood culture
Sputum culture if able
Continue Zosyn and vancomycin
-
Status post right thoracentesis 1.1 L--Straw-colored fluid. 11/08/2024
White blood cells 668/90% mononuclears/glucose 111/total protein less than 2/LDH 108/ambulates less than 30
Transudate likely due to underlying liver disease. Hepatic hydrothorax.
No significant ascites to drain on ultrasound
Follow cytology and cultures. Not consistent with parapneumonic effusion.
-
Incentive spirometer
Oxygen supplementation as needed to maintain pulse ox above 90%-currently on 4 L.
-
GI following:
Follow-up for hepatic encephalopathy
Unclear when was the last alcoholic drink-follow for withdrawal
-
Pulmonary will follow.
Subjective Data
-
Date of Service:
Date of Service: November 08, 2024
Chief Complaint: Pulmonary Follow Up (Pleural effusion/pneumonia)
Subjective:
Patient offers no new complaints
Continues to report some exertional dyspnea with activity
Denies increased phlegm production or hemoptysis
Denies abdominal pain
Review of Systems
Cardiopulmonary: Dyspnea, Dyspnea on Exertion and Cough
Objective Data
Data Reviewed
Vital Signs / I&O / Oxygen:
Vital Signs
Temp Pulse Resp BP Pulse Ox
98.0 F 90 21 99/53 95
11/08/24 11:39 11/08/24 10:18 11/08/24 10:18 11/08/24 10:18 11/08/24 10:31
Intake and Output
11/07/24 11/08/24 11/09/24
06:59 06:59 06:59
Intake Total 640 / 640 2925 / 2925
Balance 640 / 640 2925 / 2925
SaO2 95
Nasal Cannula flow liters per 2
minute
Physical Exam
General: Comfortable (At rest)
HEENT: Normocephalic
Cardiovascular: S1-S2
Respiratory: Wheeze (n) and Other (Decreased breath sounds bilaterally)
GI: Soft and Non Distended
Neurology: Awake, Alert and No Motor Deficits
Skin: Warm
Labs/Micro/Reports
Lab Data
11/08/24 03:41
11/08/24 03:41
Laboratory Results
11/08/24
03:41
PT 30.0 H
INR 2.87
Microbiology
11/06/24 18:02 Blood/Venous Blood Culture - Preliminary
Positive culture in progress
11/06/24 18:02 Blood/Venous Gram Stain - Preliminary
11/06/24 18:02 Blood/Venous Blood Culture - Preliminary
Positive culture in progress
11/06/24 18:02 Blood/Venous Gram Stain - Preliminary
11/06/24 19:03 Urine Urine Culture - Final
NO GROWTH
11/06/24 19:03 Urine Legionella Urinary Antigen - Final
Negative for Legionella pneumophila Serogroup 1 antigen.
A negative result does not rule out the possiblity of
Legionella infection due to other serogroups or species of
Legionella. Clinical correlation is recommended.
11/06/24 19:03 Urine Streptococcus pneumoniae Antigen (M - Final
Negative for Streptococcus pneumoniae antigen.
A negative result does not exclude infection with
Streptococcus pneumoniae. Clinical correlation is
recommended.
11/06/24 14:35 Nasal Swab Influenza Types A & B (NUSRAT) - Final
Negative for Influenza A & B, NAAT
Negative results must be combined with clinical observations
and patient history.
Nucleic Acid Amplification test (NAAT)performed on the
[employer] platform.
--- NOTE | 2024-11-08 14:43 | W.PN.GI.CBS2 ---
Today's Communication / Plan
-
Trial of SQ vit K to see if elevated INR has nutritional component
Resume diuretics today
MELD 31 and currently not transplant candidate. Strong urged her to continue ETOH cessation
Will follow with you
Assessment / Plan
-
Laila is a 39yo W with h/o ETOH hepatitis and cirrhosis decompensated by hepatic encephalopathy, diffuse anasarca who was admitted for SOB and fever. She lives with 8yo son and last drink of ETOH is a few weeks ago. She is known to Dr Manriquez
at [facility] for transplant evaluation. V
Impression
- Bacteremia with gram + cocci suspected PNA source
- Hepatic hydrothorax
s/p 1.1L thoracentesis 11/08
- Decompensated ETOH cirrhosis
MELD 3.0 = 29 on admission
MELD 3.0 = 31 11/08/2024
- H/o hepatic encephalopathy
- Diffuse body anasarca
- H/o gastric bypass
- ADHD
- Anxiety/depression
- h/o PUD s/p surgical repair of perforated DU
Recommendations
- Resume lasix and aldactone today
- Monitor urine output and Cr
- Dose of vit K SQ to see if nutritional component to elvated INR
- C/w abx, await sensitivities from [facility]
- Repeat blood cultures thus far pending
- Ammonia normal: c/w xifaximin and lactulose
- C/w PPI
- ETOH cessation, stress to her utmost importance
Case d/w Dr Manriquez [facility] transplant healthcare consulting manager 11/07/2024 via phone and she is currently critically ill with liver failure MELD 29 but NOT transplant candidate until sober 3 months time.
Subjective
Subjective
Date of Service: November 08, 2024
She had thoracentesis of 1.1L of fluid from R chest. Stopped early due to LH/dizziness. She feels that SOB is improved. Denies abd pain, nausea/vomiting. Ate about 80% of lunch. She c/o abd swelling but no significant ascites to tap today.
Objective
Data Reviewed
Laboratory Data:
Laboratory Results
11/08/24 03:41
11/08/24 03:41
Laboratory Results
PT 30.0 Sec (11.4-14.6) H 11/08/24 03:41
INR 2.87 11/08/24 03:41
Phosphorus 3.2 mg/dl (2.5-4.5) 11/08/24 03:41
Magnesium 1.9 mg/dl (1.6-2.3) 11/08/24 03:41
Total Bilirubin 11.6 mg/dl (0.2-1.3) H 11/08/24 03:41
AST 129 U/L (14-36) H 11/08/24 03:41
ALT 52 U/L (0-35) H 11/08/24 03:41
Alkaline Phosphatase 217 U/L (38-126) H 11/08/24 03:41
Vital Signs and I&O:
Vital Signs
Temp Pulse Resp BP Pulse Ox
98.0 F 87 16 120/63 96
11/08/24 11:39 11/08/24 14:00 11/08/24 14:00 11/08/24 13:37 11/08/24 14:00
I&O
11/07/24 11/08/24 11/09/24
06:59 06:59 06:59
Intake Total 640 / 640 2925 / 2925
Balance 640 / 640 2925 / 2925
Physical Exam
Physical Exam
GEN: No acute distress, conversant, pleasant chronically ill appearing
HEENT: +icteric, extraocular movements intact, clear oropharynx without exudates
GI: soft, milldy-distended, not tender to palpation, normal active bowel sounds, no hepatosplenomegaly
EXT: warm, well perfused, 2+ edema bilaterally to thighs bilaterally
NEURO: AAOx3, non-focal jaundice
[2024-11-08] MEDS: LASIX 40 MG PO (15:30)
[2024-11-08] MEDS: ALDACTONE 100 MG PO (15:31)
[2024-11-08] MEDS: AQUAMEPHYTON 10 MG SC (15:33)
--- NOTE | 2024-11-08 15:58 | PTCARENOTE ---
Pt returned from IR. 1100ml taken off during thoracentesis. Pt had brief episode of hypotension but recovered. Pt weaned to RA. O2 sat 95%. Up at liberty in room. GI added aldactone and lasix plus Sub q Vit K. RN educated pt on meds prior to
administration. Pt expressed understanding. Downgraded to tele.
--- NOTE | 2024-11-08 19:58 | PTCARENOTE ---
Pt received from previous RN. pt AAox3. pt eating dinner at this time. placed pt water ices in freezer for later. pt NSR on tele monitor. Pt has LE swelling. Pt ambulates to the bathroom with assistance. pt promoted to wear socks, pt refusing at
this time. Pt educated on use of non slip socks. Steady gait. Denies blurry vision or light headedness. pt encouraged to brush teeth while in bathroom for HS.
[2024-11-09 02:06] VITALS: BP 109/55
--- NOTE | 2024-11-09 03:14 | PTCARENOTE ---
Patient transferred from IMU. VSS stable. Patient able to safely ambulate into room 339-2. Plan of care ongoing.
[2024-11-09] MEDS: ZOSYN 50 IV ×2 (04:04→09:33)
[2024-11-09 05:57] LABS: Vancomycin Trough 12.4 ug/ml (5-20)
--- NOTE | 2024-11-09 05:57 | W.PN.HOSP.TC ---
Today's Communication/Plan
-
narrow abx to ceftriaxone
cont Lactulose Xifaxan
venous duplex r/o DVT lower ext's
cont diuretic
compression HARLEY wrapping lower ext's
Assessment / Plan
Assessment / Plan
HPI: 39F HX Non compliance with Meds, 2 gm Na Diet, HX alcohol hepatitis, alcohol cirrhosis, status post Rekha-en-Y gastric bypass, perforated DU status post repair, GI bleed from anastomotic ulcer rest as below and was treated in the past with
prednisolone seen at ER
- for evaluation after she started feeling unwell with shortness of breath, cough, fevers, chills
- symptoms seem to be worse prompting her to come to the ER for further evaluation.
- No known sick contacts, recent travel or recent antibiotics.
- admit to some lower extremity edema and did not take her diuretics today.
- Did not take any medications prior to arrival for her fever
Assessment/plan:
#Sepsis secondary to pneumonia
#Bacteremia
#Acute hypoxic respiratory failure
#Right pleural effusion
Appreciate pulmonology input, status post Right thoracentesis draining 1100 mL of fluid on 11/09
2 out of 2 blood cultures positive for strep mitis pansensitive, repeat cultures ngtd
empiric vancomycin/Zosyn narrowed to ceftriaxone
Weaned off oxygen supplementation to room air
Trend fever and white count
#Transient hypotension during thoracentesis
Resolved, monitor
#Abdominal ascites/peripheral edema secondary to decompensated alcoholic cirrhosis
#Hyperbilirubinemia/jaundice
#Anasarca
#History of hepatic encephalopathy
Follows with Dr. Declan DUMONT transplant post secondary professional
Appreciate GI input, not enough ascites for paracentesis
MELD 31 and currently not transplant candidate
diuretic resumed as per GI
Continue Xifaxan and lactulose
#Lower Ext Edema likely 2/2 cirrhosis
Venous duplex appreciated no DVT
HARLEY compression wrappings ordered, elevate when at rest
#History of peptic ulcer disease status postsurgical repair of perforated duodenal ulcer
#GERD
Continue PPI
Alcohol use disorder
-Last alcohol use a few weeks ago in early October 2024
-Alcohol cessation counseled
Anxiety
-Continue SSRI
History of Rekha-en-Y gastric bypass in 2011
Chronic anemia secondary to anemia of chronic disease
-Continue ferrous sulfate
-Continue B12
-monitor H&H, stable
Thrombocytopenia secondary to cirrhosis
-Platelets stable
History of internal hemorrhoids
ADHD
History of tobacco use
-Social smoker
DVT prophylaxis�SCDs
Full code
discussed with patient and patient's mother Brenda
Total time spent to see the patient on the floor, examine the patient, review data and lab results, discuss treatment plan with patient, nursing staff around 45 minutes.
Physical Exam
General: Obese, appears to not feel well, no acute distress
HEENT: Normocephalic, Atraumatic, EOMI, MMM, icteric sclerae
Respiratory: Diminished breath sounds at the bases bilaterally
Cardiac: Normal S1/S2, Regular Rate and Rhythm
GI: Soft, Nontender, abdominal distention noted
Extremities: No Clubbing, Cyanosis
Bilateral lower extremity edema noted
Neuro: Nonfocal/Grossly Intact
Psych: Calm, Cooperative
Derm: Jaundiced
.
Anticipated Discharge: Within 24 hours
Subjective/Interval History
-
Date of Service: November 09, 2024
No acute distress resting comfortably in bed reporting significant swelling lower ext's b/l.
Objective Data
-
Labs:
Laboratory Results
11/09/24
05:07
WBC Pending
Hgb Pending
Hct Pending
Plt Count Pending
Sodium Pending
Potassium Pending
Chloride Pending
Carbon Dioxide Pending
BUN Pending
Creatinine Pending
Glucose Pending
Calcium Pending
Total Bilirubin Pending
AST Pending
ALT Pending
Alkaline Phosphatase Pending
Vital Signs:
Vital Signs
Temp Pulse Resp BP Pulse Ox
98 F 95 18 109/55 95
11/09/24 02:06 11/09/24 02:06 11/09/24 02:06 11/09/24 02:06 11/09/24 02:06
I&O
11/07/24 11/08/24 11/09/24
06:59 06:59 06:59
Intake Total 640 / 640 2925 / 2925
Balance 640 / 640 2925 / 2925
[2024-11-09] MEDS: VANCOCIN 275 MG IV (06:06)
[2024-11-09 06:50] LABS: ALT (SGPT) 53 U/L (0-35); AST (SGOT) 131 U/L (14-36); Albumin 2.3 g/dl (3.5-5.0); Alkaline Phosphatase 214 U/L (38-126); Blood Urea Nitrogen 10 mg/dl (7-17); Calcium 7.6 mg/dl (8.4-10.2); Carbon Dioxide 24 mmol/L (22-30); Chloride 99 mmol/L (98-107); Estimated Creatinine Clearance > 125 ml/min; Glucose 85 mg/dl (70-99); Potassium 3.8 mmol/L (3.5-5.1); Sodium 129 mmol/L (135-145); Total Bilirubin 10.3 mg/dl (0.2-1.3); Total Protein 6.3 g/dl (6.3-8.2); eGFR > 60.00
[2024-11-09 07:10] VITALS: BP 102/57
[2024-11-09 07:25] LABS: Hematocrit 24.6 % (37.0-47.0); Hemoglobin 8.2 g/dL (12.0-16.0); Mean Corp Hgb Conc. 33.3 g/dL (33.0-37.0); Mean Corpuscular Hgb 35.8 pg (27.0-31.0); Mean Corpuscular Volume 107.4 fL (81.0-99.0); Mean Platelet Volume 10.2 fL (7.4-10.4); Platelet Count 62 10^3/uL (130-400); Red Blood Cell Count 2.29 10^6/uL (4.20-5.40); Red Cell Dist. Width 16.9 % (11.5-14.5); White Blood Cell Count 7.9 10^3/uL (4.8-10.8)
[2024-11-09] MEDS: PROTONIX 40 MG PO (07:54)
[2024-11-09] MEDS: LASIX 40 MG PO (07:54)
[2024-11-09] MEDS: FOLVITE 1 MG PO (07:54)
[2024-11-09] MEDS: DUPHALAC/CHRONULAC 20 GRAMS PO ×3 (07:54→21:16)
[2024-11-09] MEDS: EFFEXOR XR 75 MG PO (07:54)
[2024-11-09] MEDS: FEOSOL 325 MG PO (07:58)
[2024-11-09] MEDS: REVIA 50 MG PO (07:58)
[2024-11-09] MEDS: ALDACTONE 100 MG PO (07:59)
[2024-11-09] MEDS: XIFAXAN 550 MG PO ×2 (08:07→21:16)
--- NOTE | 2024-11-09 08:18 | PHA.VAN.FU ---
Vancomycin Assessment / Plan
- Assessment
Renal Function: SCR Decreasing (0.8->0.6->0.5)
WBC's are: WNL
In the past 24 hrs, patient has been: Afebrile
Concomitant Antimicrobials: piperacillin/tazo,Xifaxan
- Assessment - Trough Based Monitoring
Trough Value: 12.4 - drawn 11/09/24
Level Today was: Appropriate
Peak and trough was ordered; Peak was cancelled ( reason being - it was never drawn). Trough is appropriate
- Dosing Plan
Continue: vancomycin 1250 mg q12h
- Monitoring Plan
No level(s) ordered at this time: consider P/T if continued to determine AUC
- Follow Up
Pharmacy will continue to follow.
Vancomycin Follow UP
- -
Patient Age: 39
Patient Sex: Female
Vancomycin Day #: 3
Indication: Pulmonary/Respiratory
Requesting Provider: Carla Rausch
Height / Weight:
Height 5 ft 3 in
Actual Weight 88.1 kg
IBW in k.4
Adjusted BW in k.3
Pertinent Past Medical History: Alcoholic cirrhosis; BMI 34.4
- Vital Signs / Lab Results
Temp Pulse Resp BP Pulse Ox
97.7 F 100 19 102/75 95
11/09/24 07:10 11/09/24 07:54 11/09/24 07:10 11/09/24 07:54 11/09/24 07:10
Lab Results - Hematology
11/06/24 11/07/24 11/08/24
14:34 04:38 03:41
WBC 14.7 H 16.3 H 10.3
11/09/24
05:07
WBC 7.9
Lab Results - Chemistry
11/06/24 11/07/24 11/08/24
14:34 04:38 03:41
BUN 12 12 11
Creatinine 0.8 0.8 0.6
Estimated Creat Clear 99 > 125
Albumin 2.8 L 2.5 L 2.4 L
11/09/24
05:07
BUN 10
Creatinine 0.5 L
Estimated Creat Clear > 125
Albumin 2.3 L
11/06/24 11/06/24
18:02 21:19
Lactic Acid 3.1 H 1.3
Microbiology Results
11/08/24 03:41 Blood Culture - Preliminary
Blood/Venous No Growth in 24 hours- Final report to follow
11/08/24 09:39 Gram Stain - Preliminary
Pleural Fluid
11/08/24 09:39 Fungal Culture - Preliminary
Pleural Fluid Culture in progress.
Positive cultures are reported as soon as detected.
Final report to follow in four to five weeks.
11/06/24 18:02 Blood Culture - Preliminary
Blood/Venous Positive culture in progress
Gram Stain - Preliminary
11/06/24 18:02 Blood Culture - Preliminary
Blood/Venous Positive culture in progress
Gram Stain - Preliminary
11/06/24 19:03 Urine Culture - Final
Urine NO GROWTH
11/06/24 19:03 Legionella Urinary Antigen - Final
Urine Negative for Legionella pneumophila Serogroup 1 antigen.
A negative result does not rule out the possiblity of
Legionella infection due to other serogroups or species of
Legionella. Clinical correlation is recommended.
Streptococcus pneumoniae Antigen (M - Final
Negative for Streptococcus pneumoniae antigen.
A negative result does not exclude infection with
Streptococcus pneumoniae. Clinical correlation is
recommended.
Therapeutic Drug Monitoring
Vancomycin Peak Cancelled 11/08/24 21:00
Vancomycin Trough 12.4 ug/ml (5-20) 11/09/24 05:07
[2024-11-09 11:10] VITALS: BP 108/54
--- NOTE | 2024-11-09 11:13 | W.PN.PUL.V3 ---
Today's Communication / Plan
-
Improved after thoracentesis.
Diuresis as tolerated.
Oxygen weaned to room air.
Monitor for pleural fluid reaccumulation.
For now Pulmonary will sign off-. Please call with questions
Assessment
-
39-year-old woman with history of advanced cirrhosis, chronic lower extremity edema, admitted with shortness of breath/fevers found to have leukocytosis and bilateral infiltrates. We were consulted for pleural effusion and bilateral pneumonia on
11/07/2024
Acute hypoxemic respiratory failure: On 4 L-due to pneumonia
Abnormal chest x-ray: Bilateral effusions-bilateral lower lobe infiltrate suggestive of pneumonia
Chest x-ray: Large dense bilateral lower lobe airspace consolidation and right-sided pleural effusion moderate/small to moderate left pleural effusion.
Fever/cough/New leukocytosis bacteremia
Negative for streptococcal pneumonia negative Legionella antibody
Negative urine culture
Negative influenza
Negative COVID
Gram-positive cocci in chains 11/07/2024-identification pending.
Anemia-hemoglobin 8.2,-macrocytic-MCV 107.4.
Hyponatremia.
Mild hyperglycemia
Conditions present prior admission:
Recent hospital stay discharged 10/16/2024: Anasarca due to alcohol cirrhosis. Coagulopathy, ongoing drinking, DTs.
Gastric bypass 2011
ADHD
History of perforated ulcer 5 years ago
History of GI bleed secondary to anastomotic ulcer of the duodenum
Internal hemorrhoids
GERD
Anxiety
Alcohol abuse-unclear when was her last drink
Tobacco abuse
History of jaw surgery in the past unclear indication
Plan
Respiratory status fairly stable.
Supplemental oxygen-attempt to wean to room air
Incentive spirometry.
Aspiration precautions..
Pulmonary status improved after thoracentesis--1.1 L-Hepatic hydrothorax
Cultures reviewed
Empiric antibiotics.
Gastroenterology following-correspondence reviewed.
Diuresis as tolerated-significant lower extremity edema and probable ascites
Alcohol cessation counseling Ongoing
Not a liver transplant candidate until sober at least 3 months
DVT prophylaxis.
GI prophylaxis.
Nutrition
Early mobilization
Respiratory status, now stable-pulmonary- We'll sign off-. Please call with questions
Subjective Data
-
Date of Service:
Date of Service: November 09, 2024
Chief Complaint: Pulmonary Follow Up (Pleural effusion/pneumonia) and Dyspnea Follow Up
Subjective:
Does not complain initially of breath, chest congestion, productive cough, complains of body , swelling
Review of Systems
General: Other (per HPI)
Objective Data
Data Reviewed
Vital Signs / I&O:
Vital Signs
Temp Pulse Resp BP Pulse Ox
97.7 F 100 19 102/75 95
11/09/24 07:10 11/09/24 07:54 11/09/24 07:10 11/09/24 07:54 11/09/24 07:10
Intake and Output
11/08/24 11/09/24 11/10/24
06:59 06:59 06:59
Intake Total 2925 / 2925
Balance 2925 / 2925
SaO2: 95
Nasal Cannula flow liters per minute: 2
Physical Exam
General: Respiratory Distress (n) and Comfortable (At rest)
HEENT: Normocephalic
Cardiovascular: Regular Rhythm
Respiratory: Wheeze (n) and Other (Decreased breath sounds bilaterally)
GI: Soft and Non Distended
Neurology: Awake, Alert and No Motor Deficits
Skin: Warm, Good Color, Cyanosis (n), Jaundice (n) and Rash (n)
Labs/Micro/Reports
Lab Data
11/09/24 05:07
11/09/24 05:07
Microbiology
11/06/24 18:02 Blood/Venous Blood Culture - Preliminary
Positive culture in progress
11/06/24 18:02 Blood/Venous Gram Stain - Preliminary
11/06/24 18:02 Blood/Venous Blood Culture - Preliminary
Positive culture in progress
11/06/24 18:02 Blood/Venous Gram Stain - Preliminary
11/08/24 09:39 Pleural Fluid Body Fluid Culture - Preliminary
No Growth After 18-24 Hours
11/08/24 09:39 Pleural Fluid Gram Stain - Preliminary
11/08/24 03:41 Blood/Venous Blood Culture - Preliminary
No Growth in 24 hours- Final report to follow
11/08/24 09:39 Pleural Fluid Fungal Culture - Preliminary
Culture in progress.
Positive cultures are reported as soon as detected.
Final report to follow in four to five weeks.
11/06/24 19:03 Urine Urine Culture - Final
NO GROWTH
11/06/24 19:03 Urine Legionella Urinary Antigen - Final
Negative for Legionella pneumophila Serogroup 1 antigen.
A negative result does not rule out the possiblity of
Legionella infection due to other serogroups or species of
Legionella. Clinical correlation is recommended.
11/06/24 19:03 Urine Streptococcus pneumoniae Antigen (M - Final
Negative for Streptococcus pneumoniae antigen.
A negative result does not exclude infection with
Streptococcus pneumoniae. Clinical correlation is
recommended.
11/06/24 14:35 Nasal Swab Influenza Types A & B (NUSRAT) - Final
Negative for Influenza A & B, NAAT
Negative results must be combined with clinical observations
and patient history.
Nucleic Acid Amplification test (NAAT)performed on the
[employer] platform.
[2024-11-09 15:10] VITALS: BP 105/54
--- NOTE | 2024-11-09 15:14 | W.PN.GI.CBS2 ---
Today's Communication / Plan
-
C/w diuretics
Close OP FU with Dr Gallardo arranged
Dr Declan DUMONT transplant steelscope operator updated. Stress importance of ETOH cessation
GI will sign off please call for ?
Assessment / Plan
-
Laila is a 39yo W with h/o ETOH hepatitis and cirrhosis decompensated by hepatic encephalopathy, diffuse anasarca who was admitted for SOB and fever. She lives with 8yo son and last drink of ETOH is a few weeks ago. She is known to Dr Manriquez
at [facility] for transplant evaluation. V
Impression
- Strep mitis bacteremia
- Hepatic hydrothorax with PNA
s/p 1.1L thoracentesis 11/08
- Decompensated ETOH cirrhosis
MELD 3.0 = 29 on admission
MELD 3.0 = 31 11/08/2024
MELD 3.0 = 32 11/09/2024
- H/o hepatic encephalopathy
- Diffuse body anasarca
- H/o gastric bypass
- ADHD
- Anxiety/depression
- h/o PUD s/p surgical repair of perforated DU
Recommendations
- Resume lasix and aldactone 11/08
- Monitor urine output and Cr
- C/w abx, repeat BC thus far no growth
- Ammonia normal: c/w xifaximin and lactulose
- C/w PPI
- ETOH cessation, stress to her utmost importance
Case d/w Dr Declan DUMONT transplant steelscope operator 11/07/2024 via phone and she is currently critically ill with liver failure MELD 29 but NOT transplant candidate until sober 3 months time.
Case updated to Dr Manriquez 11/09 by myself today. She has FU with Dr Gallardo in our office (D/c paperwork updated)
All questions answered. Mom and hospitalist updated bedside. GI will sign off please call for ?
Subjective
Subjective
Date of Service: November 09, 2024
She reports improvement in SOB. Denies abd pain. C/o bilateral LE swelling. Tolerating diet without issues
Objective
Data Reviewed
Laboratory Data:
Laboratory Results
11/09/24 05:07
11/09/24 05:07
Laboratory Results
PT 30.0 Sec (11.4-14.6) H 11/08/24 03:41
INR 2.87 11/08/24 03:41
Phosphorus 3.2 mg/dl (2.5-4.5) 11/08/24 03:41
Magnesium 1.9 mg/dl (1.6-2.3) 11/08/24 03:41
Total Bilirubin 10.3 mg/dl (0.2-1.3) H 11/09/24 05:07
AST 131 U/L (14-36) H 11/09/24 05:07
ALT 53 U/L (0-35) H 11/09/24 05:07
Alkaline Phosphatase 214 U/L (38-126) H 11/09/24 05:07
Vital Signs and I&O:
Vital Signs
Temp Pulse Resp BP Pulse Ox
97.8 F 96 19 108/54 95
11/09/24 11:10 11/09/24 11:10 11/09/24 11:10 11/09/24 11:10 11/09/24 11:13
I&O
11/08/24 11/09/24 11/10/24
06:59 06:59 06:59
Intake Total 2925 / 2925
Balance 2925 / 2925
Physical Exam
Physical Exam
GEN: No acute distress, conversant, pleasant
HEENT: +icteric, extraocular movements intact, clear oropharynx without exudates
GI: soft, obese, mildly -distended, not tender to palpation, normal active bowel sounds, no hepatosplenomegaly
EXT: warm, well perfused, 2+ pitting edema bilaterally
NEURO: AAOx3, non-focal
[2024-11-09] MEDS: ROCEPHIN 2000 MG IV (15:31)
[2024-11-09] MEDS: STERILE WATER FOR INJECTION 20 ML IV (15:31)
--- NOTE | 2024-11-09 17:16 | CM ---
Spoke with pt in room .Offered VN she declined.
She said she is unsure who will drive her home at ok.
PLAN Home no needs
[2024-11-09 19:45] VITALS: BP 109/54
[2024-11-09 23:50] VITALS: BP 108/58
[2024-11-10 02:25] VITALS: BP 107/55
[2024-11-10 05:53] LABS: Hematocrit 24.4 % (37.0-47.0); Hemoglobin 8.2 g/dL (12.0-16.0); Mean Corp Hgb Conc. 33.6 g/dL (33.0-37.0); Mean Corpuscular Hgb 35.5 pg (27.0-31.0); Mean Corpuscular Volume 105.6 fL (81.0-99.0); Mean Platelet Volume 9.8 fL (7.4-10.4); Platelet Count 64 10^3/uL (130-400); Red Blood Cell Count 2.31 10^6/uL (4.20-5.40); Red Cell Dist. Width 17.2 % (11.5-14.5); White Blood Cell Count 9.2 10^3/uL (4.8-10.8)
[2024-11-10 06:08] LABS: ALT (SGPT) 55 U/L (0-35); AST (SGOT) 142 U/L (14-36); Albumin 2.5 g/dl (3.5-5.0); Alkaline Phosphatase 231 U/L (38-126); Blood Urea Nitrogen 11 mg/dl (7-17); Calcium 7.8 mg/dl (8.4-10.2); Carbon Dioxide 24 mmol/L (22-30); Chloride 100 mmol/L (98-107); Estimated Creatinine Clearance > 125 ml/min; Glucose 91 mg/dl (70-99); Magnesium 1.9 mg/dl (1.6-2.3); Phosphorus 3.7 mg/dl (2.5-4.5); Potassium 3.9 mmol/L (3.5-5.1); Sodium 131 mmol/L (135-145); Total Bilirubin 9.2 mg/dl (0.2-1.3); Total Protein 6.6 g/dl (6.3-8.2); eGFR > 60.00
[2024-11-10 07:10] VITALS: BP 117/56
--- NOTE | 2024-11-10 07:12 | W.PN.HOSP.TC ---
Today's Communication/Plan
-
cont abx
compressive HARLEY wraps LE b/l
ID eval
cont Lactulose Xifaxan
cont diuretic
Assessment / Plan
Assessment / Plan
HPI: 39F HX Non compliance with Meds, 2 gm Na Diet, HX alcohol hepatitis, alcohol cirrhosis, status post Rekha-en-Y gastric bypass, perforated DU status post repair, GI bleed from anastomotic ulcer rest as below and was treated in the past with
prednisolone seen at ER
- for evaluation after she started feeling unwell with shortness of breath, cough, fevers, chills
- symptoms seem to be worse prompting her to come to the ER for further evaluation.
- No known sick contacts, recent travel or recent antibiotics.
- admit to some lower extremity edema and did not take her diuretics today.
- Did not take any medications prior to arrival for her fever
Assessment/plan:
#Sepsis secondary to pneumonia
#Bacteremia
#Acute hypoxic respiratory failure
#Right pleural effusion
Appreciate pulmonology input, status post Right thoracentesis draining 1100 mL of fluid on 11/09
2 out of 2 blood cultures positive for strep mitis pansensitive, repeat cultures ngtd
empiric vancomycin/Zosyn narrowed to ceftriaxone
Weaned off oxygen supplementation to room air
Trend fever and white count
ID eval
#Transient hypotension during thoracentesis
Resolved, monitor
#Abdominal ascites/peripheral edema secondary to decompensated alcoholic cirrhosis
#Hyperbilirubinemia/jaundice
#Anasarca
#History of hepatic encephalopathy
Follows with Dr. Declan DUMONT transplant sustainability coordinator
Appreciate GI input, not enough ascites for paracentesis
MELD 31 and currently not transplant candidate
diuretic resumed as per GI
Continue Xifaxan and lactulose
#Lower Ext Edema likely 2/2 cirrhosis
Venous duplex appreciated no DVT
HARLEY compression wrappings ordered, elevate when at rest
#History of peptic ulcer disease status postsurgical repair of perforated duodenal ulcer
#GERD
Continue PPI
Alcohol use disorder
-Last alcohol use a few weeks ago in early October 2024
-Alcohol cessation counseled
Anxiety
-Continue SSRI
History of Rekha-en-Y gastric bypass in 2011
Chronic anemia secondary to anemia of chronic disease
-Continue ferrous sulfate
-Continue B12
-monitor H&H, stable
Thrombocytopenia secondary to cirrhosis
-Platelets stable
History of internal hemorrhoids
ADHD
History of tobacco use
-Social smoker
DVT prophylaxis�SCDs
Full code
discussed with patient and patient's mother Brenda
Total time spent to see the patient on the floor, examine the patient, review data and lab results, discuss treatment plan with patient, nursing staff around 45 minutes.
Physical Exam
General: Obese, appears to not feel well, no acute distress
HEENT: Normocephalic, Atraumatic, EOMI, MMM, icteric sclerae
Respiratory: Diminished breath sounds at the bases bilaterally
Cardiac: Normal S1/S2, Regular Rate and Rhythm
GI: Soft, Nontender, abdominal distention noted
Extremities: No Clubbing, Cyanosis
Bilateral lower extremity edema noted
Neuro: Nonfocal/Grossly Intact
Psych: Calm, Cooperative
Derm: Jaundiced
.
Anticipated Discharge: 24 - 48 hours
Subjective/Interval History
-
Date of Service: November 10, 2024
No acute distress resting comfortably in bed. Lower ext swelling persist, HARLEY compression wrapping in place. Respiratory status remains stable on room air.
Objective Data
-
Labs:
Laboratory Results
11/10/24
05:07
WBC 9.2
Hgb 8.2 L
Hct 24.4 L
Plt Count 64 L
Sodium 131 L
Potassium 3.9
Chloride 100
Carbon Dioxide 24
BUN 11
Creatinine 0.6
Glucose 91
Calcium 7.8 L
Total Bilirubin 9.2 H
AST 142 H
ALT 55 H
Alkaline Phosphatase 231 H
Vital Signs:
Vital Signs
Temp Pulse Resp BP Pulse Ox
97.8 F 96 17 107/55 93
11/10/24 02:25 11/10/24 02:25 11/10/24 02:25 11/10/24 02:25 11/10/24 02:25
I&O
11/09/24 11/10/24 11/11/24
06:59 06:59 06:59
Intake Total 1200 / 1200
Balance 1200 / 1200
[2024-11-10] MEDS: ALDACTONE 100 MG PO (08:07)
[2024-11-10] MEDS: DUPHALAC/CHRONULAC 20 GRAMS PO ×3 (08:11→21:10)
[2024-11-10] MEDS: EFFEXOR XR 75 MG PO (08:12)
[2024-11-10] MEDS: REVIA 50 MG PO (08:12)
[2024-11-10] MEDS: FOLVITE 1 MG PO (08:12)
[2024-11-10] MEDS: FEOSOL 325 MG PO (08:12)
[2024-11-10] MEDS: PROTONIX 40 MG PO (08:12)
[2024-11-10] MEDS: LASIX 40 MG PO (08:12)
[2024-11-10] MEDS: XIFAXAN 550 MG PO ×2 (08:13→20:11)
--- NOTE | 2024-11-10 10:59 | CON.ID ---
Consultation
-
Date/Time Consultation Requested: 11/10/24 8:39
Date/Time Consultation Performed: 11/10/24 11:03
Requesting Provider: Dr España
Performing Provider: Dr Navas
Reason for Consultation: strep mitis bacteremia
Chief Complaint / Past History
Chief Complaint
shortness of breath, cough, fevers, chills
History of Present Illness
Ms Salas is a 39 year old feamel with history of decompensated alcoholic cirrhosis, rekha-en-y bypass 2011, perforated duodenal ulcer s/p repair, GI bleeding from anastomotic ulcer, noncompliance who presented here 11/06 for several days of
shortness of breath, cough, fevers, chills. Last drink a few weeks ago, on naltrexone. She is undergoing transplant evaluation, three months of sobriety is required by transplant center prior to continuing workup. Reports intermittent bleeding
from the gums, no oral pain or fluctuance of the gums. No metal in the body (such as tips or replaced joint).
Had EGD 08/27/24 - no varices and normal esophagus. Last colonoscopy here 09/08/17 - normal colon initially difficult visualization that resolved with lavage of large amount of sterile water.
On arrival she was initially febrile to 102.2, bp overall stable, wbc on arrival 14 today 9.2, hgb 8.2, plt 64 at her baseline, L shift was present on arrival and not repeated since, Na 130 on arrival, K 3.9, cr 0.6, lactic acid initially 3.1 then
1.3, t bili initially 12.2 now 9.2, ast 150 now 142, alt 51 now 55, alk phos 231, ua 1+ leuk esterase, 11/08 thoracentesis for 1.1 L straw colored fluid, pH 7.49,668 wbcs, 90% monocytes, protein <2, ldh 108, AFB pendign, fungal smear negative, body
fluid culture no growth at 48 hours covid ag neg, procedure stopped when patient became hypotensive. US of the abd showed minimal fluid in the peritoneum so no paracentesis done. 11/08 CXR post thora improved right pleural effusion, small L pleural
effusion, 11/07 US abd: mild abd ascites, moderate diffuse gallbladder thickening, progressed, 11/06 CXR: large dense bilateral lower lobe airspace consoloidations - pneumonia vs atelectasis, bilateral effusions, single blood culture done 11/08 is no
growth; 11/06 blood cultures x2 s mitis - both cultures were done at the same time, no echo done thus far, currently on ceftriaxone and rifaximin, was on vancomycin and zosyn starting 11/07 and 11/06 respectively. ID is consulted for assistance with
management.
Past History
Additional Past Medical History:
gastric bypass in 2011, ADHD, history of perforated ulcer 5 years ago, GI bleeding secondary to anastomotic ulcer in the duodenum, internal hemorrhoids, GERD, anxiety, alcohol use, tobacco use
Additional Past Surgical History:
Rekha-en-Y gastric bypass, jaw surgery
Allergy History:
No Known Allergies Allergy (Verified 11/06/24 14:18)
Medications Reviewed: Yes
Social History
Tobacco: Smoker
Alcohol: Former
Drug: None
Family History
Family History: Not Pertinent
Review of Systems
Review of Systems
General: Fever and Chills
All systems: All other systems were reviewed and were negative
Vital Signs
Temp Pulse Resp BP Pulse Ox
98.1 F 98 18 117/56 97
11/10/24 07:10 11/10/24 07:10 11/10/24 07:10 11/10/24 08:07 11/10/24 07:10
Physical Exam
Physical Exam
Constitutional: No Acute Distress
Head: Other (some visible bleeding of the gums)
Cardiovascular: Regular Rate and S1/S2; Negative Murmur or Rub
Pulmonary: Clear and Symmetric; Negative Wheezes, Rales or Rhonchi
Gastrointestinal: Soft, Non Tender, Distended (mildly) and Normal Bowel Sounds
Extremities: Edema
Skin: Warm, Dry and Jaundice; Negative Rash
Lab / Diagnostic Study Results
11/10/24 05:07
11/10/24 05:07
Abs Immat Gran (auto) 0.2 10^3/uL (0-0.05) H 11/06/24 14:34
Absolute Neuts (auto) 11.8 10^3/uL (1.4-6.5) H 11/06/24 14:34
Absolute Lymphs (auto) 1.0 10^3/uL (1.2-3.4) L 11/06/24 14:34
Absolute Monos (auto) 1.7 10^3/uL (0.1-0.6) H 11/06/24 14:34
Absolute Basos (auto) 0.1 10^3/uL (0-0.2) 11/06/24 14:34
Immature Gran % 1.5 % (0-0.5) H 11/06/24 14:34
Neutrophils % 80.1 % (42.2-75.2) H 11/06/24 14:34
Lymphocytes % 6.5 % (20.5-51.1) L 11/06/24 14:34
Monocytes % 11.4 % (1.7-9.3) H 11/06/24 14:34
Eosinophils % 0.1 % (0-6) 11/06/24 14:34
Basophils % 0.4 % (0-2) 11/06/24 14:34
PT 30.0 Sec (11.4-14.6) H 11/08/24 03:41
INR 2.87 11/08/24 03:41
Lactic Acid 1.3 mmol/L (0.7-2.0) 11/06/24 21:19
Ur Squamous Epith Cells 3-5 /LPF (Few) 11/06/24 19:03
Microbiology Results
Micro:
11/08/24 09:39 Body Fluid Culture - Preliminary
Pleural Fluid No Growth After 48 Hours
Gram Stain - Preliminary
11/08/24 03:41 Blood Culture - Preliminary
Blood/Venous No Growth in 48 hours- Final report to follow
11/08/24 09:39 Fungal Smear - Final
Pleural Fluid No yeast or fungal elements seen.
Fungal Culture - Preliminary
Culture in progress.
Positive cultures are reported as soon as detected.
Final report to follow in four to five weeks.
11/06/24 18:02 Blood Culture - Final
Blood/Venous Strep mitis/oralis
Gram Stain - Final
11/06/24 18:02 Blood Culture - Final
Blood/Venous Strep mitis/oralis
Gram Stain - Final
11/08/24 09:39 Acid Fast Bacilli Smear - Pending
Pleural Fluid Acid Fast Bacilli Culture - Pending
11/06/24 19:03 Urine Culture - Final
Urine NO GROWTH
11/06/24 19:03 Legionella Urinary Antigen - Final
Urine Negative for Legionella pneumophila Serogroup 1 antigen.
A negative result does not rule out the possiblity of
Legionella infection due to other serogroups or species of
Legionella. Clinical correlation is recommended.
Streptococcus pneumoniae Antigen (M - Final
Negative for Streptococcus pneumoniae antigen.
A negative result does not exclude infection with
Streptococcus pneumoniae. Clinical correlation is
recommended.
11/06/24 14:35 Influenza Types A & B (NUSRAT) - Final
Nasal Swab Negative for Influenza A & B, NAAT
Negative results must be combined with clinical observations
and patient history.
Nucleic Acid Amplification test (NAAT)performed on the
[email or web address] platform.
Blood Culture Final 11/09/24-1135
Strep mitis/oralis
Organism 1 Strep mitis/oralis
1. Strep mitis/oralis
M.I.C. RX
--------- ---
Ampicillin <=0.06 S
Azithromycin <=0.5 S
Ceftriaxone <=0.25 S
Clindamycin <=0.06 S
Levofloxacin 0.5 S
Penicillin G 0.06 S
Tetracycline <=0.5 S
Vancomycin 0.5 S
Assessment / Plan
S Mitis Bacteremia
Fevers, Leukocytosis
Decompensated Cirrhosis
- repeat single blood culture x11/5 no growth to date, will send a second set today
- blood cultures x2 at the same time 1/3 both S mitis
- RF in the AM
- EKG no new blocks, UA without evidence of glomerulonephritis
- while S mitis can be a contaminant, her overall history is suggestive of invasive infection such as endocarditis
- EGD 3 months ago here without varices
- TTE
- panellipse
- continue ceftriaxone - likely for a 4 week course
- follow clinically
[2024-11-10 11:18] VITALS: BP 129/66
[2024-11-10] MEDS: ROCEPHIN 2000 MG IV (14:28)
[2024-11-10] MEDS: STERILE WATER FOR INJECTION 20 ML IV (14:28)
[2024-11-10 15:10] VITALS: BP 110/58
[2024-11-10 19:30] VITALS: BP 105/59
[2024-11-10 23:40] VITALS: BP 119/79
[2024-11-11 05:52] LABS: Hematocrit 24.8 % (37.0-47.0); Hemoglobin 8.2 g/dL (12.0-16.0); Mean Corp Hgb Conc. 33.1 g/dL (33.0-37.0); Mean Corpuscular Hgb 35.7 pg (27.0-31.0); Mean Corpuscular Volume 107.8 fL (81.0-99.0); Mean Platelet Volume 9.8 fL (7.4-10.4); Platelet Count 65 10^3/uL (130-400); White Blood Cell Count 9.4 10^3/uL (4.8-10.8)
[2024-11-11 06:05] LABS: ALT (SGPT) 59 U/L (0-35); AST (SGOT) 135 U/L (14-36); Albumin 2.5 g/dl (3.5-5.0); Alkaline Phosphatase 235 U/L (38-126); Blood Urea Nitrogen 11 mg/dl (7-17); Carbon Dioxide 27 mmol/L (22-30); Chloride 98 mmol/L (98-107); Estimated Creatinine Clearance > 125 ml/min; Glucose 98 mg/dl (70-99); Magnesium 1.9 mg/dl (1.6-2.3); Potassium 3.8 mmol/L (3.5-5.1); Sodium 131 mmol/L (135-145); Total Protein 6.5 g/dl (6.3-8.2); eGFR > 60.00
[2024-11-11 07:46] VITALS: BP 126/58
--- NOTE | 2024-11-11 07:58 | W.PN.HOSP.TC ---
Today's Communication/Plan
-
cont abx as per ID, home infusion set up
Lasix increased from 40 mg daily to BID
cont HARLEY compression wrapping
Albumin infusion
Assessment / Plan
Assessment / Plan
HPI: 39F HX Non compliance with Meds, 2 gm Na Diet, HX alcohol hepatitis, alcohol cirrhosis, status post Rekha-en-Y gastric bypass, perforated DU status post repair, GI bleed from anastomotic ulcer rest as below and was treated in the past with
prednisolone seen at ER
- for evaluation after she started feeling unwell with shortness of breath, cough, fevers, chills
- symptoms seem to be worse prompting her to come to the ER for further evaluation.
- No known sick contacts, recent travel or recent antibiotics.
- admit to some lower extremity edema and did not take her diuretics today.
- Did not take any medications prior to arrival for her fever
Assessment/plan:
#Sepsis secondary to pneumonia
#Bacteremia, probable Endocarditis
#Acute hypoxic respiratory failure
#Right pleural effusion
Appreciate pulmonology input, status post Right thoracentesis draining 1100 mL of fluid on 11/09
2 out of 2 blood cultures positive for strep mitis pansensitive, repeat cultures ngtd
empiric vancomycin/Zosyn narrowed to ceftriaxone
Weaned off oxygen supplementation to room air
Trend fever and white count
ID eval appreciated probable Endocarditis recommended to complete 4 wks abx 11/06-12/03 with ceftriaxone, home infusion set up underway
#Transient hypotension during thoracentesis
Resolved, monitor
#Abdominal ascites/peripheral edema secondary to decompensated alcoholic cirrhosis
#Hyperbilirubinemia/jaundice
#Anasarca
#History of hepatic encephalopathy
Follows with Dr. Declan DUMONT transplant salvage determiner
Appreciate GI input, not enough ascites for paracentesis
MELD 31 and currently not transplant candidate
diuretic resumed as per GI
Continue Xifaxan and lactulose
#Lower Ext Edema likely 2/2 cirrhosis
Venous duplex appreciated no DVT
HARLEY compression wrappings ordered, elevate when at rest
Lasix 40 mg daily increased to BID
cont home Aldactone
#History of peptic ulcer disease status postsurgical repair of perforated duodenal ulcer
#GERD
Continue PPI
Alcohol use disorder
-Last alcohol use a few weeks ago in early October 2024
-Alcohol cessation counseled
Anxiety
-Continue SSRI
History of Rekha-en-Y gastric bypass in 2011
Chronic anemia secondary to anemia of chronic disease
-Continue ferrous sulfate
-Continue B12
-monitor H&H, stable
Thrombocytopenia secondary to cirrhosis
-Platelets stable
History of internal hemorrhoids
ADHD
History of tobacco use
-Social smoker
DVT prophylaxis�SCDs
Full code
Total time spent to see the patient on the floor, examine the patient, review data and lab results, discuss treatment plan with patient, nursing staff around 45 minutes.
Physical Exam
General: Obese, appears to not feel well, no acute distress
HEENT: Normocephalic, Atraumatic, EOMI, MMM, icteric sclerae
Respiratory: Diminished breath sounds at the bases bilaterally
Cardiac: Normal S1/S2, Regular Rate and Rhythm
GI: Soft, Nontender, abdominal distention noted
Extremities: No Clubbing, Cyanosis
Bilateral lower extremity edema noted
Neuro: Nonfocal/Grossly Intact
Psych: Calm, Cooperative
Derm: Jaundiced
.
Anticipated Discharge: Within 24 hours
Subjective/Interval History
-
Date of Service: November 11, 2024
Patient concerned with lower ext leg swelling, had refused her morning Aldactone and Lasix. swelling appears to be improving from residential mortgage underwriter perspective. Patient educated on the importance of compliance with medications in order to obtain further
improvement in swelling. Patient subsequently accepted medications.
Objective Data
-
Labs:
Laboratory Results
11/11/24
05:04
WBC 9.4
Hgb 8.2 L
Hct 24.8 L
Plt Count 65 L
Sodium 131 L
Potassium 3.8
Chloride 98
Carbon Dioxide 27
BUN 11
Creatinine 0.6
Glucose 98
Calcium 8.0 L
Total Bilirubin 10.0 H
AST 135 H
ALT 59 H
Alkaline Phosphatase 235 H
Vital Signs:
Vital Signs
Temp Pulse Resp BP Pulse Ox
98.2 F 95 16 126/58 95
11/11/24 07:46 11/11/24 07:46 11/11/24 07:46 11/11/24 07:46 11/11/24 07:46
I&O
11/10/24 11/11/24 11/12/24
06:59 06:59 06:59
Intake Total 1200 / 1200 2640 / 2640
Balance 1200 / 1200 2640 / 2640
[2024-11-11] MEDS: FEOSOL 325 MG PO (10:07)
[2024-11-11] MEDS: DUPHALAC/CHRONULAC 20 GRAMS PO ×3 (10:07→20:25)
[2024-11-11] MEDS: EFFEXOR XR 75 MG PO (10:08)
[2024-11-11] MEDS: REVIA 50 MG PO (10:08)
[2024-11-11] MEDS: XIFAXAN 550 MG PO ×2 (10:08→20:22)
[2024-11-11] MEDS: PROTONIX 40 MG PO (10:08)
[2024-11-11] MEDS: FOLVITE 1 MG PO (10:08)
[2024-11-11] MEDS: LASIX PO (10:11)
[2024-11-11] MEDS: ALDACTONE PO (10:11)
--- NOTE | 2024-11-11 10:58 | W.PN.ID1 ---
Addendum entered and electronically signed by Emy Navas MD 11/11/24 14:17:
Primary problem is Probable endocarditis
Original Note:
Date of Service
Date of Service: November 11, 2024
Today's Communication
- continue ceftriaxone - 11/06-12/03
- picc line or midline if acceptable to home infusion company
Assessment / Plan
S Mitis Bacteremia
Fevers, Leukocytosis
Decompensated Cirrhosis
- repeat single blood cultures 11/08/24 and 11/10/24 no growth to date
- blood cultures x2 at the same time /3 both S mitis
- RF pending
- EKG no new blocks, UA without evidence of glomerulonephritis
- while S mitis can be a contaminant, her overall history is suggestive of invasive infection such as endocarditis
- EGD 3 months ago here without varices
- TTE - no vegetation seen
- panellipse - dental regine noted - advised patient to follow up with dentist and filled out medical necessity form for [employer] insurance at her request.
- continue ceftriaxone - 11/06-12/03
- picc line or midline if acceptable to home infusion company
- follow clinically
Chief Complaint
-: Bacteremia
Subjective / Review of Systems
afebrile
bp stable
Vital Signs / Physical Exam
Vital Signs
Vital Signs
Temp Pulse Resp BP Pulse Ox
98.2 F 95 16 126/58 95
11/11/24 07:46 11/11/24 07:46 11/11/24 07:46 11/11/24 07:46 11/11/24 07:46
Physical Exam
Constitutional: No Acute Distress
Cardiovascular: Regular Rate and S1/S2; Negative Murmur or Rub
Pulmonary: Clear and Symmetric; Negative Wheezes or Rales
Gastrointestinal: Soft, Non Tender, Non Distended and Normal Bowel Sounds
Extremities: Negative Splinter Hemorrhage or Janeway Lesions
Skin: Warm, Dry, Jaundice and Other (spider angiomas); Negative Rash
Objective Data
Lab Data
Lab Results
11/11/24 05:04
11/11/24 05:04
PT 30.0 Sec (11.4-14.6) H 11/08/24 03:41
INR 2.87 11/08/24 03:41
Estimated Creat Clear > 125 ml/min 11/11/24 05:04
Lactic Acid 1.3 mmol/L (0.7-2.0) 11/06/24 21:19
Total Bilirubin 10.0 mg/dl (0.2-1.3) H 11/11/24 05:04
AST 135 U/L (14-36) H 11/11/24 05:04
ALT 59 U/L (0-35) H 11/11/24 05:04
Alkaline Phosphatase 235 U/L (38-126) H 11/11/24 05:04
Most recent labs reviewed.
Micro Results:
11/08/24 09:39 Body Fluid Culture - Final
Pleural Fluid No Growth After 72 Hours
Gram Stain - Final
11/08/24 03:41 Blood Culture - Preliminary
Blood/Venous No Growth in 72 hours- Final report to follow
11/10/24 11:50 Blood Culture - Pending
Blood/Venous
11/08/24 09:39 Fungal Smear - Final
Pleural Fluid No yeast or fungal elements seen.
Fungal Culture - Preliminary
Culture in progress.
Positive cultures are reported as soon as detected.
Final report to follow in four to five weeks.
11/06/24 18:02 Blood Culture - Final
Blood/Venous Strep mitis/oralis
Gram Stain - Final
11/06/24 18:02 Blood Culture - Final
Blood/Venous Strep mitis/oralis
Gram Stain - Final
11/08/24 09:39 Acid Fast Bacilli Smear - Pending
Pleural Fluid Acid Fast Bacilli Culture - Pending
11/06/24 19:03 Urine Culture - Final
Urine NO GROWTH
11/06/24 19:03 Legionella Urinary Antigen - Final
Urine Negative for Legionella pneumophila Serogroup 1 antigen.
A negative result does not rule out the possiblity of
Legionella infection due to other serogroups or species of
Legionella. Clinical correlation is recommended.
Streptococcus pneumoniae Antigen (M - Final
Negative for Streptococcus pneumoniae antigen.
A negative result does not exclude infection with
Streptococcus pneumoniae. Clinical correlation is
recommended.
11/06/24 14:35 Influenza Types A & B (NUSRAT) - Final
Nasal Swab Negative for Influenza A & B, NAAT
Negative results must be combined with clinical observations
and patient history.
Nucleic Acid Amplification test (NAAT)performed on the
[employer] platform.
[2024-11-11 11:39] VITALS: BP 122/61
[2024-11-11 11:56] VITALS: BMI 34.8
[2024-11-11] MEDS: ROCEPHIN 2000 MG IV (14:30)
[2024-11-11] MEDS: STERILE WATER FOR INJECTION 20 ML IV (14:30)
[2024-11-11] MEDS: FLEXBUMIN 100 IV (15:07)
[2024-11-11] MEDS: LASIX 40 MG IV (15:10)
--- NOTE | 2024-11-11 15:17 | CM ---
ID wrote for 4 weeks IV home infusion for antibiotics.
Obtained script.
Spoke with pt . She is in agreement with home therapy.
Pt has [employer] insurance. Called [facility] [phone] spoke with intake Netta she declined case due to pts MD who wrote script was not a [employer] C[facility].
LM with [facility] .
Script and clinical faxed to [facility] for gu check and availability.
[facility] infusion company
[2024-11-11 16:02] VITALS: BP 109/59
--- NOTE | 2024-11-11 18:30 | PTCARENOTE ---
Pt refused PO Lasix and Aldactone this morning. aware.
[2024-11-11 19:47] VITALS: BP 110/55
[2024-11-11] MEDS: LASIX 40 MG PO (20:22)
[2024-11-11 22:52] VITALS: BP 106/58
[2024-11-12 06:00] VITALS: BMI 34.9
--- NOTE | 2024-11-12 06:40 | W.PN.HOSP.TC ---
Addendum entered and electronically signed by Vargas España MD 11/13/24 07:39:
Endocarditis unclear acuity (acute vs subacute)
Original Note:
Today's Communication/Plan
-
discharge
Assessment / Plan
Assessment / Plan
HPI: 39F HX Non compliance with Meds, 2 gm Na Diet, HX alcohol hepatitis, alcohol cirrhosis, status post Rekha-en-Y gastric bypass, perforated DU status post repair, GI bleed from anastomotic ulcer rest as below and was treated in the past with
prednisolone seen at ER
- for evaluation after she started feeling unwell with shortness of breath, cough, fevers, chills
- symptoms seem to be worse prompting her to come to the ER for further evaluation.
- No known sick contacts, recent travel or recent antibiotics.
- admit to some lower extremity edema and did not take her diuretics today.
- Did not take any medications prior to arrival for her fever
Assessment/plan:
#Sepsis secondary to pneumonia
#Bacteremia, probable Endocarditis
#Acute hypoxic respiratory failure
#Right pleural effusion
Appreciate pulmonology input, status post Right thoracentesis draining 1100 mL of fluid on 11/09
2 out of 2 blood cultures positive for strep mitis pansensitive, repeat cultures ngtd
empiric vancomycin/Zosyn narrowed to ceftriaxone
Weaned off oxygen supplementation to room air
Trend fever and white count
ID eval appreciated probable Endocarditis recommended to complete 4 wks abx 11/06-12/03 with ceftriaxone
case mgmt consult appreciated home infusion set up confirmed prior to discharge
Patient has follow up with Dentist for infected tooth removal potential source endocarditis.
#Transient hypotension during thoracentesis
Resolved
#Abdominal ascites/peripheral edema secondary to decompensated alcoholic cirrhosis
#Hyperbilirubinemia/jaundice
#Anasarca
#History of hepatic encephalopathy
Follows with Dr. Declan DUMONT transplant principal java developer
Appreciate GI input, not enough ascites for paracentesis
MELD 31 and currently not transplant candidate
diuretic resumed as per GI
Continue Xifaxan and lactulose
#Lower Ext Edema likely 2/2 cirrhosis
Venous duplex appreciated no DVT
HARLEY compression wrappings ordered, elevate when at rest
Lasix 40 mg daily increased to BID
cont home Aldactone
#History of peptic ulcer disease status postsurgical repair of perforated duodenal ulcer
#GERD
Continue PPI
Alcohol use disorder
-Last alcohol use a few weeks ago in early October 2024
-Alcohol cessation counseled
Anxiety
-Continue SSRI
History of Rekha-en-Y gastric bypass in 2011
Chronic anemia secondary to anemia of chronic disease
-Continue ferrous sulfate
-Continue B12
-monitor H&H, stable
Thrombocytopenia secondary to cirrhosis
-Platelets stable
History of internal hemorrhoids
ADHD
History of tobacco use
-Social smoker
DVT prophylaxis�SCDs
Full code
Medically stable for discharge home with home infusion set up and outpatient follow up recommendations.
Discussed with patient, patient's mother Brenda, nurse, and case management
Total Time Preparing Discharge ___50____ minutes including examination of the patient, summary of the hospital stay, instructions for continuing care to all relevant caregivers; and preparation of discharge records, prescriptions, and referral
forms if necessary.
Physical Exam
General: Obese, appears to not feel well, no acute distress
HEENT: Normocephalic, Atraumatic, EOMI, MMM, icteric sclerae
Respiratory: Diminished breath sounds at the bases bilaterally
Cardiac: Normal S1/S2, Regular Rate and Rhythm
GI: Soft, Nontender, abdominal distention noted
Extremities: No Clubbing, Cyanosis
Bilateral lower extremity edema noted
Neuro: Nonfocal/Grossly Intact
Psych: Calm, Cooperative
Derm: Jaundiced
.
Anticipated Discharge: Today
Subjective/Interval History
-
Date of Service: November 12, 2024
Seen and examined at bedside. Patient anxious to go home in time for her dental appt tomorrow to have infected tooth removed.
Objective Data
-
Labs:
Laboratory Results
11/12/24
06:11
WBC Pending
Hgb Pending
Hct Pending
Plt Count Pending
Sodium Pending
Potassium Pending
Chloride Pending
Carbon Dioxide Pending
BUN Pending
Creatinine Pending
Glucose Pending
Calcium Pending
Total Bilirubin Pending
AST Pending
ALT Pending
Alkaline Phosphatase Pending
Vital Signs:
Vital Signs
Temp Pulse Resp BP Pulse Ox
98.4 F 104 16 106/58 96
11/11/24 22:52 11/11/24 22:52 11/11/24 22:52 11/11/24 22:52 11/11/24 22:52
I&O
11/10/24 11/11/24 11/12/24
06:59 06:59 06:59
Intake Total 1200 / 1200 2640 / 2640 1050 / 1050
Balance 1200 / 1200 2640 / 2640 1050 / 1050
[2024-11-12 06:47] LABS: Hematocrit 22.9 % (37.0-47.0); Hemoglobin 7.5 g/dL (12.0-16.0); Mean Corp Hgb Conc. 32.8 g/dL (33.0-37.0); Mean Platelet Volume 9.3 fL (7.4-10.4); Platelet Count 61 10^3/uL (130-400); Red Blood Cell Count 2.14 10^6/uL (4.20-5.40); Red Cell Dist. Width 17.9 % (11.5-14.5); White Blood Cell Count 11.5 10^3/uL (4.8-10.8)
[2024-11-12 06:50] LABS: ALT (SGPT) 56 U/L (0-35); AST (SGOT) 153 U/L (14-36); Albumin 2.6 g/dl (3.5-5.0); Alkaline Phosphatase 205 U/L (38-126); Blood Urea Nitrogen 11 mg/dl (7-17); Calcium 7.6 mg/dl (8.4-10.2); Carbon Dioxide 26 mmol/L (22-30); Chloride 98 mmol/L (98-107); Estimated Creatinine Clearance > 125 ml/min; Glucose 93 mg/dl (70-99); Magnesium 1.9 mg/dl (1.6-2.3); Phosphorus 3.3 mg/dl (2.5-4.5); Potassium 3.8 mmol/L (3.5-5.1); Sodium 132 mmol/L (135-145); Total Bilirubin 10.6 mg/dl (0.2-1.3); Total Protein 6.4 g/dl (6.3-8.2); eGFR > 60.00
[2024-11-12 07:45] VITALS: BP 120/65
[2024-11-12] MEDS: FEOSOL 325 MG PO (08:58)
[2024-11-12] MEDS: REVIA 50 MG PO (08:58)
[2024-11-12] MEDS: XIFAXAN 550 MG PO (08:58)
[2024-11-12] MEDS: FOLVITE 1 MG PO (08:58)
[2024-11-12] MEDS: ALDACTONE 100 MG PO (08:58)
[2024-11-12] MEDS: EFFEXOR XR 75 MG PO (08:58)
[2024-11-12] MEDS: LASIX PO (08:59)
[2024-11-12] MEDS: PROTONIX 40 MG PO (08:59)
[2024-11-12] MEDS: DUPHALAC/CHRONULAC 20 GRAMS PO (09:05)
--- NOTE | 2024-11-12 09:09 | W.PN.ID1 ---
Date of Service
Date of Service: November 12, 2024
Today's Communication
- continue ceftriaxone - 11/06-12/03
- picc line or midline if acceptable to home infusion company
- stable for dc from ID perspective when outpatient IV antibiotics are set up
Assessment / Plan
S Mitis Bacteremia
Fevers, Leukocytosis
Decompensated Cirrhosis
- repeat blood cultures 11/08/24 and 11/10/24 no growth to date
- blood cultures x2 at the same time 1/3 both S mitis
- RF pending
- EKG no new blocks, UA without evidence of glomerulonephritis
- while S mitis can be a contaminant, her overall history is suggestive of invasive infection such as endocarditis
- EGD 3 months ago here without varices
- TTE - no vegetation seen
- panellipse - dental regine noted - advised patient to follow up with dentist and filled out medical necessity form for [employer] insurance at her request, she will take a copy of the CD of the panellipse with her for the insurance company
- continue ceftriaxone - 11/06-12/03
- picc line or midline if acceptable to home infusion company
- stable for dc from ID perspective when outpatient IV antibiotics are set up
Chief Complaint
-: Bacteremia
Subjective / Review of Systems
afebrile
bp stable
no events overnight
Vital Signs / Physical Exam
Vital Signs
Vital Signs
Temp Pulse Resp BP Pulse Ox
98.3 F 96 18 120/65 95
11/12/24 07:45 11/12/24 07:45 11/12/24 07:45 11/12/24 07:45 11/12/24 07:45
Physical Exam
Constitutional: No Acute Distress and Chronically Ill
Cardiovascular: Regular Rate and S1/S2; Negative Murmur or Rub
Pulmonary: Clear and Symmetric; Negative Wheezes or Rales
Gastrointestinal: Soft, Non Tender, Non Distended and Normal Bowel Sounds
Skin: Warm, Dry and Jaundice; Negative Rash
Objective Data
Lab Data
Lab Results
11/12/24 06:11
11/12/24 06:11
PT 30.0 Sec (11.4-14.6) H 11/08/24 03:41
INR 2.87 11/08/24 03:41
Estimated Creat Clear > 125 ml/min 11/12/24 06:11
Lactic Acid 1.3 mmol/L (0.7-2.0) 11/06/24 21:19
Total Bilirubin 10.6 mg/dl (0.2-1.3) H 11/12/24 06:11
AST 153 U/L (14-36) H 11/12/24 06:11
ALT 56 U/L (0-35) H 11/12/24 06:11
Alkaline Phosphatase 205 U/L (38-126) H 11/12/24 06:11
Most recent labs reviewed.
Micro Results:
11/08/24 03:41 Blood Culture - Preliminary
Blood/Venous No Growth in 4 days- Final report to follow
11/08/24 09:39 Acid Fast Bacilli Smear - Preliminary
Pleural Fluid Acid Fast Bacilli Culture - Preliminary
11/10/24 11:50 Blood Culture - Preliminary
Blood/Venous No Growth in 24 hours- Final report to follow
11/08/24 09:39 Body Fluid Culture - Final
Pleural Fluid No Growth After 72 Hours
Gram Stain - Final
11/08/24 09:39 Fungal Smear - Final
Pleural Fluid No yeast or fungal elements seen.
Fungal Culture - Preliminary
Culture in progress.
Positive cultures are reported as soon as detected.
Final report to follow in four to five weeks.
11/06/24 18:02 Blood Culture - Final
Blood/Venous Strep mitis/oralis
Gram Stain - Final
11/06/24 18:02 Blood Culture - Final
Blood/Venous Strep mitis/oralis
Gram Stain - Final
11/06/24 19:03 Urine Culture - Final
Urine NO GROWTH
11/06/24 19:03 Legionella Urinary Antigen - Final
Urine Negative for Legionella pneumophila Serogroup 1 antigen.
A negative result does not rule out the possiblity of
Legionella infection due to other serogroups or species of
Legionella. Clinical correlation is recommended.
Streptococcus pneumoniae Antigen (M - Final
Negative for Streptococcus pneumoniae antigen.
A negative result does not exclude infection with
Streptococcus pneumoniae. Clinical correlation is
recommended.
11/06/24 14:35 Influenza Types A & B (NUSRAT) - Final
Nasal Swab Negative for Influenza A & B, NAAT
Negative results must be combined with clinical observations
and patient history.
Nucleic Acid Amplification test (NAAT)performed on the
[employer] platform.
--- NOTE | 2024-11-12 10:44 | CM ---
Addendum entered by Estefania Campbell RN 11/12/24 16:54:
Pt said she needed to be home for w dentist appointment.
Spoke with Kelsey Drake and .
[facility] came and taught pt infusion.
[facility] will deliver equipment and meds by tomorrow am.Next antibiotic due tomorrow afternoon.
MD entered discharge. Family will drive pt home.
PLAN Home with [facility] infusion.
Original Note:
ID wrote for 4 weeks IV home infusion for antibiotics.
Spoke with with Susan Kelsey Drake she ran pts benefits pt is covered 100% and they can accept her.
Susan will be in to teach her infusion tomorrow and deliver abx that eveining and SOC with [facility] will be Sat...
ID aware of above
PLAN Home with [facility] infusion tomorrow.
[2024-11-12] MEDS: LASIX 40 MG PO (11:45)
[2024-11-12] MEDS: STERILE WATER FOR INJECTION 20 ML IV (13:04)
[2024-11-12] MEDS: ROCEPHIN 2000 MG IV (13:05)
[2024-11-12 13:31] LABS: Rheumatoid Agglutinin Less Than 10 IU (<10 IU)
--- NOTE | 2024-11-12 13:56 | PN.CDI ---
CDI
- -
CDI:
Physician Documentation Request
Admit Date: 11/06/24 18:14
Dear Doctor Taco,
Clinical Indicators:
Patient admitted with sepsis.
11/10 ID consult, '...her overall history is suggestive of invasive infection such as endocarditis'
11/11 PN, 'ID eval appreciated probable Endocarditis recommended to complete 4 wks abx...'
Please clarify which of the following accurately represents the acuity of the probable endocarditis. Possible options might include:
Acute
Subacute
Chronic
Other
Use of terms such as suspected, likely, concern for, or probable (associated with a specific diagnosis that is being evaluated, monitored, or treated as if it exists) are acceptable and can be coded in the inpatient setting, when documented at the
time of discharge.
Thank you,
Davina Estrada RN BSN
CDI Specialist
available via tiger text
Please use your independent medical judgment in providing your response.
[2024-11-12 15:05] VITALS: BP 113/60
[2024-11-12 16:42] LABS: Iron 161 ug/dl (37-170)
--- NOTE | 2024-11-12 16:46 | W.DCSUMMARY ---
Discharge Summary
Discharge Data
Date of Admission: 11/06/24
Date of Discharge: 11/12/24
-
Pending Results: Yes
Additional Pending Results:
official culture results
Discharge Plan
-
Patient Disposition: Home with Home Care
Discharge Diagnosis/Procedures: Sepsis secondary to pneumonia
Bacteremia, probable Endocarditis
Acute hypoxic respiratory failure- resolved
Right pleural effusion (Hepatic Hydrothorax) status post thoracentesis 11/09/24
Abdominal ascites/peripheral edema secondary to decompensated alcoholic cirrhosis
Hyperbilirubinemia/jaundice
Anasarca
History of hepatic encephalopathy
Lower Ext Edema likely due to cirrhosis
History of peptic ulcer disease status postsurgical repair of perforated duodenal ulcer
GERD
Alcohol use disorder, Alcohol cessation counseled
Anxiety
History of Rekha-en-Y gastric bypass in 2011
Chronic anemia secondary to anemia of chronic disease
Thrombocytopenia secondary to cirrhosis
History of internal hemorrhoids
ADHD
History of tobacco use
Condition: Fair
Diet: 2 Gram Sodium
Activity: As tolerated
Driving Restrictions: As prior to admission
Bathing Restrictions: None
Blood Work: Please repeat CBC and CMP with primary care provider in 1 week of discharge
Others Tests: Repeat Chest X-ray with primary care provider in 1 week of discharge.
Activity Restrictions/Additional Instructions:
Please keep your dentist appointment, follow up with primary care provider in 1 week of discharge, keep your appointment with GI, and follow up Infectious Disease in 2-4 weeks of discharge.
Lasix has been increased to 40 mg twice a day for better control fluid/edema due to cirrhosis.
Continue with home infusion antibiotics ceftriaxone daily as prescribed by Infectious Disease to continue through 12/03/24
Please take medications as prescribed/recommended and follow up with primary care provider and/or other healthcare provider involved in your care for refills and/or further adjustment to your medication regimen as necessary.
It is strongly advised that you abstain from alcohol and/or tobacco use- as further usage will likely lead to worsening of your overall condition and increase your risk for morbidity/mortality.
Referrals:
Lana Gallardo MD [Active] - 11/30/24 8:30 am (follow up with GI as planned for end november )
Louisa Tripathi PA-C [Family Provider] - in one week
Emy Navas MD [Active] - in two to four weeks
Prescriptions:
Continued
therapeutic multivitamin Tablet
1 tab PO DAILY
dextroamphetamine-amphetamine 30 mg Tablet
30 mg PO BID
folic acid 1 mg Tablet
1 mg PO DAILY
vitamin B complex Capsule
1 cap PO DAILY
naltrexone 50 mg Tablet
50 mg PO DAILY
ferrous sulfate 325 mg (65 mg iron) Tablet
325 mg PO DAILY
pantoprazole 40 MG tablet,delayed release (DR/EC)
40 mg PO DAILY
venlafaxine 75 mg Capsule,Extended Release 24hr
75 mg PO DAILY
lactulose 20 gram/30 mL Solution
20 g PO TID Qty: 3000 0RF
Xifaxan 550 mg Tablet
550 mg PO BID Qty: 60 0RF
spironolactone 100 mg Tablet
100 mg PO DAILY
Changed
furosemide 40 mg tablet
40 mg PO BID Qty: 60 0RF
Discharge Orders:
Discharge Patient (As Directed); Ordered 11/12/24
Ordered By: Vargas España
Discharge Date and Time
Print Language: SETSWANA
[2024-11-12 16:51] LABS: Percent Saturation 80 % (20-50); Total Iron Binding Capacity 201 ug/dl (265-497)
[2024-11-12] MEDS: DUPHALAC/CHRONULAC PO (17:04)
[2024-11-12 19:03] LABS: Folate 14.4 ng/ml (2.76-20); Vitamin B12 > 1000 pg/ml (239-931)
== END 2024-11-12 17:32 | disposition home health service (06) | DRG 871 ==
LOC: 3 WEST ACU 18:14
PROVIDERS: Nurse Practitioner Adult Health; Physician Assistant; Physician Assistant Medical; Radiology Vascular & Interventional Radiology; Registered Nurse; ADMITTING PHYSICIAN Internal Medicine; ATTENDING PHYSICIAN Internal Medicine; CONSULT PHYSICIAN Internal Medicine Critical Care Medicine; CONSULT PHYSICIAN Internal Medicine Gastroenterology; EMERGENCY PHYSICIAN Emergency Medicine; FAMILY PHYSICIAN Physician Assistant Medical; OTHER PHYSICIAN Student in an Organized Health Care Education/Training Program
PROC: 0W993ZX Drainage of Right Pleural Cavity, Percutaneous Approach, Diagnostic (ICD-10-PCS; 2024-11-08)
DX: A41.9 Sepsis, unspecified organism (principal); J18.9 Pneumonia, unspecified organism; J96.01 Acute respiratory failure with hypoxia; I38 Endocarditis, valve unspecified; J91.8 Pleural effusion in other conditions classified elsewhere; F17.200 Nicotine dependence, unspecified, uncomplicated; Z11.52 Encounter for screening for COVID-19; K72.10 Chronic hepatic failure without coma; K76.82 Hepatic encephalopathy; F90.9 Attention-deficit hyperactivity disorder, unspecified type; D69.59 Other secondary thrombocytopenia; D73.1 Hypersplenism; F32.A Depression, unspecified; F41.9 Anxiety disorder, unspecified; F10.20 Alcohol dependence, uncomplicated; K70.31 Alcoholic cirrhosis of liver with ascites
CPT/HCPCS: 88305; 32555; 70355; 71045; 71046; 76604; 76705; 80053; 80202; 81003; 81015; 82140; 82150; 82607; 82728; 82746; 82945; 83540; 83550; 83605; 83615; 83735; 83986; 84100; 84157; 85025; 85027; 85610; 86430; 87015; 87040; 87070; 87077; 87086; 87102; 87116; 87186; 87205; 87206; 87449; 87502; 87811; 87899; 88112; 88341; 88342; 89051; 93306; 93970; 96361; 96374; 96375; 97161; 99285; 99406; P9047

== ENCOUNTER → 2024-12-02 13:49 | Outpatient (REF) | payer OTHER, SELFPAY | LOC: RAD 13:49 | PROVIDERS: ATTENDING PHYSICIAN Physician Assistant Medical | DX: J90 Pleural effusion, not elsewhere classified (principal) | CPT/HCPCS: 71046 ==

== ENCOUNTER 2025-01-14 19:24 | Emergency (ER) | payer OTHER, SELFPAY ==
[2025-01-14 19:29] VITALS: BP 125/72
[2025-01-14 20:02] LABS: ALT (SGPT) 76 U/L (0-35); AST (SGOT) 172 U/L (14-36); Albumin 3.1 g/dl (3.5-5.0); Alkaline Phosphatase 284 U/L (38-126); Blood Urea Nitrogen 11 mg/dl (7-17); Calcium 8.6 mg/dl (8.4-10.2); Carbon Dioxide 23 mmol/L (22-30); Chloride 101 mmol/L (98-107); Glucose 153 mg/dl (70-99); Potassium 4.3 mmol/L (3.5-5.1); Sodium 133 mmol/L (135-145); Total Bilirubin 12.4 mg/dl (0.2-1.3); Total Protein 7.4 g/dl (6.3-8.2); eGFR > 60.00
[2025-01-14 20:04] LABS: APTT 49.3 Sec (23.4-35.0); NT-proBNP 202 pg/ml
[2025-01-14 20:07] LABS: % Basophils 0.6 % (0-2); % Eosinophils 0.7 % (0-6); % Immature Granulocytes 0.9 % (0-0.5); % Lymphocytes 16.7 % (20.5-51.1); % Monocytes 10.9 % (1.7-9.3); % Neutrophils 70.2 % (42.2-75.2); Absolute Basophils 0.1 10^3/uL (0-0.2); Absolute Eosinophils 0.1 10^3/uL (0-0.7); Absolute Immature Granulocytes 0.1 10^3/uL (0-0.05); Absolute Lymphocytes 1.4 10^3/uL (1.2-3.4); Absolute Monocytes 0.9 10^3/uL (0.1-0.6); Hemoglobin 9.9 g/dL (12.0-16.0); Mean Corpuscular Hgb 34.9 pg (27.0-31.0); Mean Corpuscular Volume 105.6 fL (81.0-99.0); Mean Platelet Volume 9.4 fL (7.4-10.4); Nucleated Red Blood Cells % 0 %; Platelet Count 73 10^3/uL (130-400); Red Blood Cell Count 2.84 10^6/uL (4.20-5.40); White Blood Cell Count 8.6 10^3/uL (4.8-10.8)
== END 2025-01-14 21:33 | disposition left against medical advice (07) ==
LOC: EMR 19:24
PROVIDERS: EMERGENCY PHYSICIAN Student in an Organized Health Care Education/Training Program
DX: E87.70 Fluid overload, unspecified (principal); Z53.21 Procedure and treatment not carried out due to patient leaving prior to being seen by health care provider
CPT/HCPCS: 80053; 83880; 85025; 85730

== ENCOUNTER → 2025-01-15 13:51 | Outpatient (REF) | payer OTHER, SELFPAY ==
[2025-01-15 13:58] VITALS: BP 119/62; BP_SYST 116
== END ==
LOC: RADI 13:51
PROVIDERS: ATTENDING PHYSICIAN Internal Medicine Transplant Hepatology; FAMILY PHYSICIAN Physician Assistant Medical
DX: J90 Pleural effusion, not elsewhere classified (principal)
CPT/HCPCS: 32555; 71045

== ENCOUNTER → 2025-01-21 08:44 | Outpatient (REF) | payer OTHER, SELFPAY ==
[2025-01-21 09:27] VITALS: BP 117/68; BP_SYST 105
[2025-01-21 10:01] VITALS: BP 114/64
== END ==
LOC: RADI 08:44
PROVIDERS: ATTENDING PHYSICIAN Internal Medicine Transplant Hepatology; FAMILY PHYSICIAN Physician Assistant Medical
DX: J90 Pleural effusion, not elsewhere classified (principal); R18.8 Other ascites
CPT/HCPCS: 32555; 71045; 76705

== ENCOUNTER 2025-01-30 20:45 | Inpatient (IN) | payer OTHER, SELFPAY ==
[2025-01-30 17:50] VITALS: BP 107/52
[2025-01-30 18:42] VITALS: BP 120/47
--- NOTE | 2025-01-30 18:45 | ED.GENMED ---
History of Present Illness
General
Chief Complaint: Breathing Problem
Source: patient and family (sister)
Exam Limitations: none
Time Seen by Provider: 01/30/25 18:11
Nursing documentation reviewed up to this point in time: agreed with
History of Present Illness
History of Present Illness:
The patient is a 39-year-old female the past medical history of alcohol related liver failure who reports increased fatigue and shortness of breath since yesterday. Additionally, patient reports a cough since yesterday. Her sister reports that she
is having intermittent confusion since yesterday. Patient reports that she checked her temperature and it was 103 today. She denies abdominal pain, nausea, vomiting and diarrhea. Patient denies headache and sore throat. Patient reports increased
swelling of her abdomen, but denies pain in the abdominal area. She reports that her legs are always swollen and no more swollen today than usual. Patient reports that she supposed to get a thoracentesis done every but unfortunately due
to ' problems with the order', she did not undergo thoracentesis 3 days ago that she was supposed to.
Past History
Past History
ED Past Medical History: Psychiatric (Anxiety, Depression, ) and Other (alcoholic hepatitis, Cirrhosis of the liver, Ulcers, Iron def anemia, )
ED Past Surgical History: Orthopedic (Jaw surgery) and Other (gastric bypass, Surgery for perforated ulcer)
Social History
Tobacco: Smoker
Alcohol: Chronic alcoholic (patient denies this at this time)
Drug: None
Personal:
Living: with family
Employment: Employed
Family History
Family History: Other
Review of Systems
Review of Systems
Allergies reviewed?: Yes
All Other Systems: ROS reviewed and negative except as documented in HPI and ROS
Constitutional: Reports fever and fatigue
EENT: Reports no symptoms
Respiratory: Reports cough and trouble breathing
Cardiac: Reports no symptoms
ABD/GI: Reports other (Ascites)
: Reports no symptoms
Musculoskeletal: Reports edema
Skin: Reports no symptoms
Neurological: Reports no symptoms
Endocrine: Reports no symptoms
Hematologic/Lymphatic: Reports no symptoms
Psychiatric: Reports no symptoms
Phy Exam
Physical Exam
Physical Exam:
Physical Exam
General: Chronically ill-appearing. Jaundice
Neck: supple. no meningeal signs. normal psoterior pharynx. Bleeding ulceration right inner cheek. Icteric sclera
Heart: Tachycardic
Lungs: Tachypneic, decreased bowel sounds bilaterally
Abdomen: Ascites, nontender
Neuro: alert and oriented. no focal neurological deficits
Skin: no rash
Psychiatric: well kept. interactive and cooperative
Extremities: 3+ pitting edema bilateral lower extremities. Nontender calves. Negative Homans' sign
Course
Orders/Labs/Results
Orders:
Orders
01/30/25 18:48
Complete Blood Count/With Diff Urgent
Comprehensive Metabolic Panel Urgent
Monotest Urgent
Comment: ADD ON
01/30/25 18:58
Add On- LAB Urgent
Tests Added?: monotest
01/30/25 18:59
CR Chest - 2 Views Urgent
Comment:
Reason For Exam: SOB, fever
01/30/25 19:04
Ammonia Urgent
PTT Urgent
Prothrombin Time Urgent
Blood Culture Urgent
RAYO Source: Blood/Venous
Specimen Description:
Influenza A+B Rapid Molecular Urgent
RAYO Source: Nasal Swab
Specimen Description:
01/30/25 19:05
COVID-19 Antigen Urgent
Source: Nasal Swab
Lactic Acid Urgent
01/30/25 20:[address] Non Medication Order As Directed
Physician Order: please complete med rec thanks
01/30/25 20:21
Vancomycin [Vancocin] 1,500 mg 0.9% Sodium Chloride 500 ml [Nss] 500 ml IV NOW
Zosyn 4.5 grams IVPB NOW Piperacillin/Tazo 4.5 Gram [Zosyn] 4.5 gram in 100 ml IV NOW
Abnormal Lab Results
01/30/25 01/30/25 01/30/25
18:48 19:04 19:05
WBC 13.4 H 10^3/uL
(4.8-10.8)
RBC 2.49 L 10^6/uL
(4.20-5.40)
Hgb 8.8 L g/dL
(12.0-16.0)
Hct 26.1 L %
(37.0-47.0)
MCV 104.8 H fL
(81.0-99.0)
MCH 35.3 H pg
(27.0-31.0)
RDW 16.7 H %
(11.5-14.5)
Plt Count 68 L 10^3/uL
(130-400)
Abs Immat Gran (auto) 0.3 H 10^3/uL
(0-0.05)
Absolute Neuts (auto) 10.6 H 10^3/uL
(1.4-6.5)
Absolute Lymphs (auto) 1.0 L 10^3/uL
(1.2-3.4)
Absolute Monos (auto) 1.5 H 10^3/uL
(0.1-0.6)
Immature Gran % 1.9 H %
(0-0.5)
Neutrophils % 78.8 H %
(42.2-75.2)
Lymphocytes % 7.6 L %
(20.5-51.1)
Monocytes % 11.3 H %
(1.7-9.3)
PT 33.8 H Sec
(11.4-14.6)
APTT 54.2 H Sec
(23.4-35.0)
Chloride 108 H mmol/L
(98-107)
Carbon Dioxide 21 L mmol/L
(22-30)
Glucose 121 H mg/dl
(70-99)
Lactic Acid 2.3 H mmol/L
(0.7-2.0)
Calcium 8.0 L mg/dl
(8.4-10.2)
Total Bilirubin 13.0 H mg/dl
(0.2-1.3)
AST 136 H U/L
(14-36)
ALT 59 H U/L
(0-35)
Alkaline Phosphatase 180 H U/L
(38-126)
Total Protein 6.2 L g/dl
(6.3-8.2)
Albumin 2.3 L g/dl
(3.5-5.0)
Monoscreen Positive A
(Negative)
01/30/25 18:48
01/30/25 18:48
Vital Signs
Initial and Last Documented VS:
Initial Vital Signs
Temp Pulse Resp BP Pulse Ox
98.8 F 130 16 107/52 92
01/30/25 17:50 01/30/25 17:50 01/30/25 17:50 01/30/25 17:50 01/30/25 17:50
Last Documented Vital Signs
Temp Pulse Resp BP Pulse Ox
98.8 F 120 32 120/47 92
01/30/25 17:50 01/30/25 18:43 01/30/25 18:43 01/30/25 18:42 01/30/25 18:43
MDM/Problems Addressed
Differential Diagnosis Includes:
Acute on chronic pleural effusion, acute on chronic ascites, pneumonia, bacteremia
MDM/Problems Addressed:
Patient presents with acute fever, acute cough, and acute shortness of breath
Chronic conditions affecting care:
Liver failure
Acute Exacerbation and/or Progression of Chronic Illness:
Patient's liver failure may have caused increased third spacing with increase pleural effusion and ascites
*Radiology
Radiology exam reviewed: preliminary read by ED provider (Chest x-ray read by me. Bilateral pleural effusions, right greater than left)
*Pulse Oximetry
Patient hypoxic: no
*EKG
Interpreted by ED Provider?: NA
*Switchboard Troubleshooter Interpretation
Rate: tachycardiac
Interpretation: abnormal
Rhythm: sinus
*Critical Care Note
Total Time (30-74mins, 75-104mins- exclusive of procedures): 45 minutes
comment:
45 minutes critical care going to place including frequent reassessments of her heart rate, blood pressure, reviewing her chest x-ray, lab work and recent hospitalization
Data Reviewed
Review of Other/Old Records Reveals: Progress Notes (Hospitalist progress note reviewed from November 2024 which showed patient was bacteremic and had pneumonia)
Source: patient and family
Patient Management
Social determinants of health affecting care: Living situation and Strong social support
Discussion with other providers: Hospitalist
Escalation/DeEscalation of care consider admission/obs:
Given patient's elevated white blood cell count and left-sided shift of white blood cells, as well as her worsening cough, decision made to treat with wide spectrum antibiotics for pneumonia. Additionally, patient likely has a fever from mono.
ED Attending Note
-
Portions of this chart may have been created with voice recognition software.� Occasional wrong word or��sound alike� substitutions may have occurred due to the inherent limitations of voice recognition software.
Discharge Plan
Departure
Patient Disposition: Admit
Date of Disposition: 01/30/25
Time of Disposition: 19:48
Admit to: Med/Surg
Presentation/result/management discussed w/ accepting MD/DO: Hospitalist
Patient with high blood pressure during this ER visit?: No
Condition: Fair
Covid-19: Negative COVID-19
Discharge Problem:
Acute respiratory failure, Acute on chronic pleural effusions, Pneumonia, Mirian Aragon virus infection, Anemia, Chronic liver failure
Prescriptions:
No Action
therapeutic multivitamin Tablet
1 tab PO DAILY
dextroamphetamine-amphetamine 30 mg Tablet
30 mg PO BID
folic acid 1 mg Tablet
1 mg PO DAILY
vitamin B complex Capsule
1 cap PO DAILY
naltrexone 50 mg Tablet
50 mg PO DAILY
ferrous sulfate 325 mg (65 mg iron) Tablet
325 mg PO DAILY
pantoprazole 40 MG tablet,delayed release (DR/EC)
40 mg PO DAILY
venlafaxine 75 mg Capsule,Extended Release 24hr
75 mg PO DAILY
lactulose 20 gram/30 mL Solution
20 g PO TID Qty: 3000 0RF
Xifaxan 550 mg Tablet
550 mg PO BID Qty: 60 0RF
spironolactone 100 mg Tablet
100 mg PO DAILY
furosemide 40 mg tablet
40 mg PO BID Qty: 60 0RF
Referrals:
Louisa Tripathi PA-C [Family Provider] -
Interventions
Interventions:
*Risk Screen - Suicide Last Done: 01/30/25 20:02
*General Assessment Last Done: 01/30/25 19:24
*Neglect/Abuse Screening Last Done: 01/30/25 17:50
*ED- Fall Risk Assessment Last Done: 01/30/25 19:00
*ED COVID-19 Vaccine History Last Done: 01/30/25 17:50
ED- Cardiac Assessment Last Done: 01/30/25 19:24
ED- Pulmonary Assessment Last Done: 01/30/25 18:46
Discharge Date and Time
Print Language: OMANI
[2025-01-30 18:57] LABS: % Basophils 0.3 % (0-2); % Eosinophils 0.1 % (0-6); % Immature Granulocytes 1.9 % (0-0.5); % Lymphocytes 7.6 % (20.5-51.1); % Monocytes 11.3 % (1.7-9.3); % Neutrophils 78.8 % (42.2-75.2); Absolute Immature Granulocytes 0.3 10^3/uL (0-0.05); Absolute Monocytes 1.5 10^3/uL (0.1-0.6); Absolute Neutrophils 10.6 10^3/uL (1.4-6.5); Hematocrit 26.1 % (37.0-47.0); Hemoglobin 8.8 g/dL (12.0-16.0); Mean Corp Hgb Conc. 33.7 g/dL (33.0-37.0); Mean Corpuscular Hgb 35.3 pg (27.0-31.0); Mean Corpuscular Volume 104.8 fL (81.0-99.0); Mean Platelet Volume 9.6 fL (7.4-10.4); Nucleated Red Blood Cells % 0 %; Platelet Count 68 10^3/uL (130-400); Red Blood Cell Count 2.49 10^6/uL (4.20-5.40); Red Cell Dist. Width 16.7 % (11.5-14.5); White Blood Cell Count 13.4 10^3/uL (4.8-10.8)
[2025-01-30 19:15] LABS: ALT (SGPT) 59 U/L (0-35); AST (SGOT) 136 U/L (14-36); Albumin 2.3 g/dl (3.5-5.0); Alkaline Phosphatase 180 U/L (38-126); Blood Urea Nitrogen 10 mg/dl (7-17); Carbon Dioxide 21 mmol/L (22-30); Chloride 108 mmol/L (98-107); Glucose 121 mg/dl (70-99); Potassium 4.4 mmol/L (3.5-5.1); Sodium 135 mmol/L (135-145); Total Protein 6.2 g/dl (6.3-8.2); eGFR > 60.00
[2025-01-30 19:27] LABS: Monotest Positive (Negative)
[2025-01-30 19:30] LABS: INR 3.36; PT 33.8 Sec (11.4-14.6)
[2025-01-30 19:31] LABS: APTT 54.2 Sec (23.4-35.0)
[2025-01-30 19:35] LABS: Ammonia 24 umol/L (9-30)
[2025-01-30 19:35] LABS: Lactic Acid 2.3 mmol/L (0.7-2.0)
[2025-01-30 19:36] LABS: COVID-19 Antigen Negative (Negative)
--- NOTE | 2025-01-30 19:58 | HPS.HSE ---
Family Physician
-
Family Physician: Louisa Tripathi PA-C
Chief Complaint
-
swelling
sob
History of Present Illness
39-year-old female the past medical history of alcohol related liver failure who reports increased fatigue and shortness of breath for past one week. Additionally, patient reports a cough with productive sputum wich at times bloody, brownish or
yellowish color. she had a fever of 102 at home. she noticed her abdomen is distended and LE is swollen. Sob worse with exertion. Her sister reports that she is having intermittent confusion since yesterday. She denies abdominal pain, nausea,
vomiting and diarrhea. she is complained of MARI. denied sore throat. denied dysuria or hematuria. Patient reports that she supposed to get a thoracentesis done every but unfortunately due to ' problems with the order', she did not undergo
thoracentesis 3 days ago that she was supposed to.
admitting for further management.
Medical History
Past Medical History
Past Medical History: Reports Other
Additional Past Medical History:
Attention deficit disorder
Peptic ulcer disease
Thrombocytopenia
Palpitation
Alcoholic cirrhosis of liver with ascites
Portal hypertension
Depression
Anxiety
Endocarditis
Past Surgical History: Reports Other
Additional Past Surgical History:
Gastric bypass
To surgery
Social History
Tobacco: Former Smoker
Alcohol: Former
Drug: None
Personal: Single
Living: With Family
Family History
Family History: Not pertinent
Allergies / Home Medications
Allergies reflects when Allergies were last updated in [employer].
Home Medications with original date entered in [employer]
Allergy/Medication List:
Allergies
Allergy/AdvReac Type Severity Reaction Status Date / Time
No Known Allergies Allergy Verified 01/21/25 09:31
Home Medications
dextroamphetamine-amphetamine 30 mg tablet 30 mg PO BID Neurological Condition 06/17/24
folic acid 1 mg tablet 1 mg PO DAILY Supplement 06/17/24
therapeutic multivitamin 1 tab PO DAILY Supplement 06/17/24
vitamin B complex 1 cap PO DAILY Supplement 06/17/24
ferrous sulfate 325 mg (65 mg iron) tablet 325 mg PO DAILY Supplement 10/13/24
naltrexone 50 mg tablet 50 mg PO DAILY alcohol use disorder 10/13/24
pantoprazole 40 mg tablet,delayed release 40 mg PO DAILY Gastrointestinal Issue 10/13/24
venlafaxine 75 mg capsule,extended release 24 hr 75 mg PO DAILY Mental Health/Anxiety 10/13/24
lactulose 20 gram/30 mL oral solution 20 g (30 mL) PO TID #3,000 mL 10/16/24
rifaximin 550 mg tablet (Xifaxan) 550 mg PO BID #60 tabs 10/16/24
spironolactone 100 mg tablet 100 mg PO DAILY Blood Pressure 11/06/24
furosemide 40 mg tablet 40 mg PO BID Fluid Retention/Swelling #60 tabs 11/12/24
Review of Systems
-
Constitutional: Reports Fatigue
EENT: Reports No Symptoms
Respiratory: Reports Cough and Trouble Breathing
Cardiac: Reports No Symptoms
Abdomen/GI: Reports Abdominal Pain
: Reports No Symptoms
Musculoskeletal: Reports No Symptoms
Skin: Reports No Symptoms
Neurological: Reports Headache and Weakness
Endocrine: Reports No Symptoms
Hematologic/Lymphatic: Reports No Symptoms
Psych: Reports No Symptoms
Physical Exam
Vital Signs
Vital Signs
Temp Pulse Resp BP Pulse Ox
98.8 F 120 32 120/47 92
01/30/25 17:50 01/30/25 18:43 01/30/25 18:43 01/30/25 18:42 01/30/25 18:43
Physical Exam
General: Well Developed, Well Nourished and No Apparent Distress
HEENT: NormoCephalic, Moist mucous membranes and Atraumatic
Respiratory: Decreased Breath Sounds
Cardiac: S1/S2 and Regular Rhythm; No Murmur or Rub
GI: Soft, Normal Bowel Sounds and Distended; No Organomegaly
Rectal: Deferred by Provider
Musculoskeletal: No Clubbing, No Cyanosis and Other (b/l Le edema)
Skin: No Rash
Neuro: AO x 3 and Nonfocal/grossly intact
Psych: Calm
Laboratory Results
-
01/30/25 18:48
01/30/25 18:48
Laboratory Results
PT 33.8 Sec (11.4-14.6) H 01/30/25 19:04
INR 3.36 01/30/25 19:04
APTT 54.2 Sec (23.4-35.0) H 01/30/25 19:04
Lactic Acid 2.3 mmol/L (0.7-2.0) H 01/30/25 19:05
Total Bilirubin 13.0 mg/dl (0.2-1.3) H 01/30/25 18:48
AST 136 U/L (14-36) H 01/30/25 18:48
ALT 59 U/L (0-35) H 01/30/25 18:48
Alkaline Phosphatase 180 U/L (38-126) H 01/30/25 18:48
Data Reviewed
-
Lab Data: Labs Reviewed by me
Impression/Plan
-
# Fever//cough likely due to mono
-WBC 13.4
-Positive mono, COVID-negative
-Blood cultures sent from ER
-Flu negative
#lactic acidosis likely from liver failure
-trend lactic.
# Acute hypoxic respiratory failure likely from pleural effusion
-chest x ray Pending
-Patient is requiring 2 L of oxygen
-Continue supplemental oxygen, wean as tolerated
-IR consulted for thoracentesis
# Abdominal distention concerning for ascites
-Obtain ultrasound of abdomen
-IR consulted for paracentesis
# Anemia of chronic disease
# Chronic thrombocytopenia
-Hemoglobin stable at 8.8, platelets 68
-No active bleed
-Continue to monitor
#Abdominal ascites/peripheral edema secondary to decompensated alcoholic cirrhosis
##Lower Ext Edema likely 2/2 cirrhosis
#Hyperbilirubinemia/jaundice
#Anasarca
# Chronic transaminitis
-AST 136, ALT 59, ALK 180
#History of hepatic encephalopathy
-Follows with Dr. Declan DUMONT transplant paperhanger and painter
-IV ceftriaxone prophylactically
#History of peptic ulcer disease status postsurgical repair of perforated duodenal ulcer
#GERD
Continue PPI
#Anxiety
-Continue SSRI
#History of Rekha-en-Y gastric bypass in 2011
#History of internal hemorrhoids
#ADHD
History of tobacco use
-Social smoker
DVT prophylaxis�SCDs
Full code
[2025-01-30] MEDS: ZOSYN 100 IV (20:30)
[2025-01-30 20:37] VITALS: BMI 34.0
--- NOTE | 2025-01-30 20:44 | W.PN.UPDATE ---
Update Note
Progress Note Update
Patient seen in conjunction with SALES PLANNING COORDINATOR. I agree depends on history and physical and I concur with assessment and plan.
This is a 39-year-old female with history of alcoholic cirrhosis, last drink was over a year ago complicated by pleural effusions likely hepatic hydrothorax was had a recent on multiple thoracentesis including both left and right sided and has a
standing order for repeat thoracentesis on 3 days ago which she missed and is now here with fever and some shortness of breath. She reports being febrile to 103 at home.
Patient reports that she has chronic nonproductive cough and has not changed. It is productive of scant sputum. She denied any hemoptysis. She denied any hematemesis. She denied melena medic easier. She denies any abdominal tenderness pain
nausea vomiting or diarrhea. She reports that there is indeed her abdomen is swelling but she is never required a paracentesis in the past. She feels short of breath and chest she has dyspnea on exertion and is unable to ambulate secondary to
dyspnea on exertion. She was last admitted with pneumonia and bacteremia with strep mitis. Fluid studies were negative for cultures and transudative at that time. She completed a course of ceftriaxone via PICC line at home.
She reports that lower extremity swelling is unchanged and she has not gained any significant significant weight compared to baseline. She has otherwise been compliant with her medications.
In the emergency department she was afebrile, she was requiring 2 L of oxygen. She was tachycardic to 120. Blood pressure was 120/47. Respiratory was 30.
Chest x-ray shows bilateral pleural effusions. Cannot eliminate the possibility of subpleural consolidation. AST and ALT are unchanged from prior. She has a white count of 13.4 otherwise hemoglobin and platelets with similar to prior 8.8 and 68.
Electrolytes BUN/creatinine within the normal range. COVID was negative, flu was negative, Monospot was positive.
Assessment and plan
[id number] female with alcoholic cirrhosis complicated by recurrent pleural effusions coming in with fever and shortness of breath. Found to have bilateral pleural effusions likely hepatic hydrothorax. She has missed thoracentesis that was
supposed to be given 3 days ago. Patient has a mild cough. X-ray shows no focal consolidation. Viral panel was negative except for positive Monospot. She has leukocytosis to 13.4. The fever and leukocytosis can be explained by infectious
mononucleosis. She denies any abdominal tenderness nausea vomiting hematemesis hematochezia or melena.
- admit to IMu due to oxygen requirement and fever
- blood cultures sent, u/a and urine cultures pending
- while mono explains her fever, and effusions explain her sob, we cannot rule out empyema or SBP entirely. SBP unlikely as she has no abdominal tenderness on examination
- cover for SBP and CAP with Ceftriaxone 2g IV daily. Check mrsa swab. Check procal. if procal +, will add vancomycin to cover for pna.
- IR consult for diagnostic and therapeutic thoracentesis
- respiratory measures
- ID consult
Cirrhosis - Liver labs and CBC stable.
- continue home lactulose and rifaximine
- continue lasix and spironalctone
- continue ppi daily
DVT PPX - SCDs
[2025-01-30 21:00] VITALS: BP 116/74
[2025-01-30 22:30] VITALS: BMI 32.4
--- NOTE | 2025-01-30 22:30 | PTCARENOTE ---
Patient received from the ED via stretcher accompanied by RN. Patient ambulated from stretcher to bed, gait steady. Patient states she feels slightly dizzy. Advised not to get OOB without assistance. Admitted to ICU [id number] as IMU patient. Placed on
CM. BLE edema 2+, pitting. Positive pulses x 4 extremities. S1S2 tachycardic and with murmur. ST on CM. BBS with UL clear. Bilateral bases and RML diminished with fine crackles. Abdomen softly distended with positive bowel sounds. Edema noted from
Abdomen down. Upper extremities with muscle wasting. On oxygen at 2L/nc. Sats 92-94%. Afebrile. C/o MARI 06/13. Berhane DOVER contacted for Tylenol. Patient also c/o feeling anxious. Orders obtained for Ativan x 1 dose at patient request. Repeat labs drawn
per order. Patient had ordered Door Dash in the ED. Regular diet ordered. Patient attempted to eat but states she feels a little indigestion when eating and does not actually eat her dinner. Taking po liquids and pills without difficulty. No N/V. No
CP. Patient has some dyspnea at rest that seems worse with anxiety. Emotional support and encouragement given.
[2025-01-30 22:37] VITALS: BP 93/68
[2025-01-30 22:39] LABS: Procalcitonin 0.87 ng/ml (0.0-0.25)
[2025-01-30 23:00] VITALS: BP 123/63
[2025-01-30] MEDS: TYLENOL 650 MG PO (23:00)
[2025-01-30] MEDS: DUPHALAC/CHRONULAC 20 GRAMS PO (23:00)
[2025-01-30] MEDS: XIFAXAN 550 MG PO (23:00)
[2025-01-30] MEDS: LASIX 40 MG PO (23:00)
[2025-01-30 23:30] VITALS: BP 121/60
[2025-01-30 23:47] LABS: Hematocrit 24.8 % (37.0-47.0)
[2025-01-30 23:58] LABS: Lactic Acid 1.9 mmol/L (0.7-2.0)
[2025-01-31] VITALS (22 sets, daily range): BP systolic 103–128; BP diastolic 52–90; BMI 32.3
[2025-01-31] MEDS: ATIVAN 0.5 MG PO ×2 (00:10→18:03)
--- NOTE | 2025-01-31 00:25 | PTCARENOTE ---
At 0000, patient noted with sats 88-91% on 2L/nc. Patient respiratory rate 25. Slightly diaphoretic. Increased oxygen to 4L/nc. Sats improved temporarily to 92-94% but then dropped again to 88-91%. Oxygen increased to 6L/nc and humidity added to
oxygen. Patient advised to DB & C, breathing in through her nose and out through her mouth. Sats improved and maintained at 93-94%. Berhane DOVER notified and aware. No change in BBS. Rest of physical assessment unchanged. VSS.
--- NOTE | 2025-01-31 04:00 | PTCARENOTE ---
Patient appears to be sleeping comfortably when undisturbed. Respirations nonlabored, sats 95% on RA. No c/o pain. SR 90s-ST low 100s on CM. No change in patient's physical assessment.
[2025-01-31] MEDS: STERILE WATER FOR INJECTION 10 ML IV (05:20)
[2025-01-31] MEDS: ROCEPHIN 1000 MG IV (05:20)
--- NOTE | 2025-01-31 05:30 | PTCARENOTE ---
Patient snacking on food ordered last pm. Sats 96% on 6L/nc. Oxygen decreased to 4L/nc. BRP with SBA. Gait steady, tolerates well. Voids dark edward urine without difficulty, 125cc +. Assisted back to bed. AM labs drawn.
[2025-01-31 05:55] LABS: Hematocrit 24.5 % (37.0-47.0); Hemoglobin 8.2 g/dL (12.0-16.0); Mean Corp Hgb Conc. 33.5 g/dL (33.0-37.0); Mean Corpuscular Hgb 35.3 pg (27.0-31.0); Mean Corpuscular Volume 105.6 fL (81.0-99.0); Mean Platelet Volume 10.2 fL (7.4-10.4); Platelet Count 60 10^3/uL (130-400); Red Blood Cell Count 2.32 10^6/uL (4.20-5.40); Red Cell Dist. Width 17.2 % (11.5-14.5); White Blood Cell Count 11.6 10^3/uL (4.8-10.8)
[2025-01-31 06:17] LABS: ALT (SGPT) 55 U/L (0-35); AST (SGOT) 143 U/L (14-36); Alkaline Phosphatase 137 U/L (38-126); Blood Urea Nitrogen 10 mg/dl (7-17); Calcium 6.6 mg/dl (8.4-10.2); Carbon Dioxide 19 mmol/L (22-30); Chloride 114 mmol/L (98-107); Estimated Creatinine Clearance > 125 ml/min; Glucose 87 mg/dl (70-99); Sodium 138 mmol/L (135-145); Total Bilirubin 10.8 mg/dl (0.2-1.3); Total Protein 5.7 g/dl (6.3-8.2); eGFR > 60.00
--- NOTE | 2025-01-31 06:21 | PTCARENOTE ---
Lab called with critical lab result, Ca+ 6.6. Corrected Calcium is 8.2.
--- NOTE | 2025-01-31 07:06 | PTCARENOTE ---
Report given verbally to oncMarnie marquez RN. Questions answered.
[2025-01-31] MEDS: B COMPLEX w/VITAMIN C 1 CAPLET PO (07:20)
[2025-01-31] MEDS: LASIX 40 MG PO ×2 (07:20→19:32)
[2025-01-31] MEDS: THERAGRAN 1 TABLET PO (07:20)
[2025-01-31] MEDS: DUPHALAC/CHRONULAC 20 GRAMS PO ×3 (07:20→20:01)
[2025-01-31] MEDS: FOLVITE 1 MG PO (07:20)
[2025-01-31] MEDS: FEOSOL PO ×2 (07:20→07:27)
[2025-01-31] MEDS: PROTONIX 40 MG PO (07:20)
[2025-01-31] MEDS: ALDACTONE 100 MG PO (07:21)
[2025-01-31] MEDS: XIFAXAN 550 MG PO ×2 (07:21→19:32)
[2025-01-31] MEDS: EFFEXOR XR 75 MG PO (07:21)
--- NOTE | 2025-01-31 07:37 | PTCARENOTE ---
report received, assessments per work list. patient denies dyspnea, pain. monitor nsr, sinus tach. lung with crackles, diminished bilaterally. abdomen distended and firm. call wiley in reach. patient oriented X3. reviewed plan of care, awaiting IRAD
--- NOTE | 2025-01-31 10:56 | PTCARENOTE ---
pulse oximeter 80's with exertion. nasal cannula increased to 6 liters. dyspnea upon minimal exertion. c/o fatigue. awaiting IRAD
--- NOTE | 2025-01-31 11:57 | CM ---
CM met with pt bedside
Pt resides at home with 8 y/o son- friend currently caring for him
Pt is independent at baseline, drives +
Was admitted to in nov 2024 and setup with IV abx through [facility]
Pt receives weekly thoracentesis at outpt center
PCP- Louisa Tripathi
Rx- [facility]
Discharge Disposition- anticipate home no needs
--- NOTE | 2025-01-31 13:06 | W.PN.HOSP.TC ---
Today's Communication/Plan
-
Thoracentesis
Assessment / Plan
Assessment / Plan
Assessment/plan
Severe sepsis with acute organ dysfunction
Patient meets sepsis criteria on admission
Heart rate max 123
WBCs 13.4
Respiratory rate 26
Temperature (subjective fever)
Source of infection is (UTI-patient tested positive for mono)-cannot rule out underlying pneumonia may consider CT chest after thoracentesis.
Acute organ dysfunction in form of acute respiratory failure
IV antibiotic in form of Rocephin
Blood culture pending
Urine culture pending
Consider consult infectious disease based on clinical course
COVID and flu negative
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
-chest x ray shows:
There is moderate bilateral pleural effusions, right larger than left. Underlying pneumonia cannot be excluded.
Increased oxygen requirement from 2 L to 6 L
-Continue supplemental oxygen, wean as tolerated
-IR consulted for thoracentesis
Liver cirrhosis with ascites
-Obtain ultrasound of abdomen
-IR consulted for paracentesis
Ammonia level 24
Patient will need Follows with Dr. 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
Continue Lasix, rifaximin, lactulose
Anemia of chronic disease- Chronic thrombocytopenia
-No active bleed
-Continue to monitor
History of peptic ulcer disease status postsurgical repair of perforated duodenal ulcer
Continue PPI
Anxiety
-Continue SSRI
History of internal hemorrhoids
no bleeding
History of tobacco use
-Social smoker
CODE STATUS: Full code
DVT prophylaxis: SCDS
Diet: Fluid restriction
Total time spent on today's encounter was 65 minutes which included time spent in counseling the patient/family regarding diagnosis and treatment plan as listed above, goals of care, and symptom management. Case was discussed with nursing staff,
specialists, and care coordinators/case management. All labs and imaging personally reviewed by me. Remainder the time spent in detailed review of previous records, lab data, imaging, and other medical provider documentation.
Anticipated Discharge: > 48 hours
Subjective/Interval History
-
Date of Service: January 31, 2025
Patient admitted overnight with shortness of breath secondary to pleural effusion.
Subjective fever, no currently fever in the hospital, but patient was increased oxygen requirement to 6 L.
Discussed with IR, plan for thoracentesis today.
Objective Data
-
Labs:
Laboratory Results
01/31/25
05:26
WBC 11.6 H
Hgb 8.2 L
Hct 24.5 L
Plt Count 60 L
Sodium 138
Potassium 4.0
Chloride 114 H
Carbon Dioxide 19 L
BUN 10
Creatinine 0.6
Glucose 87
Calcium 6.6 L*
Total Bilirubin 10.8 H
AST 143 H
ALT 55 H
Alkaline Phosphatase 137 H
Vital Signs:
Vital Signs
Temp Pulse Resp BP Pulse Ox
98 F 99 16 116/68 94
01/31/25 11:06 01/31/25 12:00 01/31/25 12:00 01/31/25 12:00 01/31/25 12:00
I&O
01/30/25 01/31/25 02/01/25
06:59 06:59 06:59
Intake Total 195 / 195 600 / 600
Output Total 125 / 125 250 / 250
Balance 70 / 70 350 / 350
Physical Exam
-
General: Respiratory Distress and Appears in Distress
HEENT: Normocephalic, Atraumatic, Moist Mucous Membranes, No Ptosis, PERRLA and Nose Appears Normal
Respiratory: Rales, Rhonchi, Crackles and Non Labored Respirations
Cardiac: Regular Rhythm and S1/S2
Breast: Deferred by me
GI: Soft, Nontender, Nondistended and Normal Bowel Sounds
Genito-urinary: No Costovertebral Tender
Musculoskeletal: No Clubbing, No Cyanosis and No Edema
Skin: Warm
Neuro: Awake, Alert, Oriented, AO x 3 and No Motor Deficits
Psych: Calm
Data Reviewed
-
Diagnostic Radiology: Image personally visualized and interpreted and Report Reviewed by me
CT Scan: Image personally visualized and interpreted and Report Reviewed by me
Ultrasound: Image personally visualized and interpreted and Report Reviewed by me
MRI: Image personally visualized and interpreted and Report Reviewed by me
Medical Tests (Nuc Med, Echo etc): Image personally visualized and interpreted and Report Reviewed by me
Labs: Labs Reviewed by me
Old Records: Reviewed
[2025-01-31 15:11] LABS: LDH 491 U/L (120-246)
--- NOTE | 2025-01-31 17:48 | PTCARENOTE ---
patient informed that IRAD would be adding her to schedule saturday. patient upset. requesting prn dose ativan. states she takes this at home. hospitalist updated by tiger text. orders pending
--- NOTE | 2025-01-31 20:00 | PTCARENOTE ---
Patient received sitting up in bed, visiting with her friend Sarah. She is without apparent signs of distress or discomfort. A&OX4. She currently c/o MARI. Irais Diaz APN contacted for Tylenol order, Tylenol given. Afebrile, VSS. BBS with UL
clear, Bilateral bases and RML diminished with fine crackles. S1S2 tachy with positive murmur. ST on CM. Positive pulses x 4 extremities. BLE edema 2+. Abdomen distended but soft, +Ascites. She is eating dinner, but appetite fair. Labs and chart
reviewed. Bed in low and locked position, Call wiley within reach.
[2025-01-31] MEDS: TYLENOL 650 MG PO (20:01)
--- NOTE | 2025-01-31 23:00 | PTCARENOTE ---
Patient assisted to bathroom, SBA, gait steady. Voids dark edward urine without difficulty. Limited self cares, perineal care, CHG cloth bath, teeth brushed. Room quieted for sleep.
[2025-02-01] VITALS (20 sets, daily range): BP systolic 98–142; BP diastolic 57–87
--- NOTE | 2025-02-01 02:05 | PTCARENOTE ---
Addendum entered by Natalie Azevedo RN 02/01/25 02:23:
Placed on 10L midflow oxygen by Brad resp therapy.
Original Note:
Noted that patient sats 87-88%. Found her with oxygen removed. Replaced oxygen at 6L/nc. However, sats did not recover. Remains 88-90% on 6L/nc. I asked resp therapy to place patient on midflow to improve sats. Irais Diaz APN notified. In
Interim, I bumped up Nasal cannula oxygen to 8L.
[2025-02-01] MEDS: ROCEPHIN 1000 MG IV (05:28)
[2025-02-01] MEDS: STERILE WATER FOR INJECTION 10 ML IV (05:28)
--- NOTE | 2025-02-01 05:30 | PTCARENOTE ---
Am labs drawn. Patient rouses easily. Appears to have slept well t/o night. Groggy this am. Desats when removes oxygen. Advised to keep O2 on, verbalized understanding. Patient with more frequent PVCs when desats. No other change to physical
assessment.
[2025-02-01 06:32] LABS: Hematocrit 24.8 % (37.0-47.0); Hemoglobin 8.1 g/dL (12.0-16.0); Mean Corp Hgb Conc. 32.7 g/dL (33.0-37.0); Mean Corpuscular Hgb 34.2 pg (27.0-31.0); Mean Corpuscular Volume 104.6 fL (81.0-99.0); Mean Platelet Volume 9.3 fL (7.4-10.4); Platelet Count 59 10^3/uL (130-400); Red Blood Cell Count 2.37 10^6/uL (4.20-5.40); Red Cell Dist. Width 16.7 % (11.5-14.5); White Blood Cell Count 7.9 10^3/uL (4.8-10.8)
[2025-02-01 06:54] LABS: ALT (SGPT) 65 U/L (0-35); AST (SGOT) 140 U/L (14-36); Albumin 2.3 g/dl (3.5-5.0); Alkaline Phosphatase 212 U/L (38-126); Blood Urea Nitrogen 12 mg/dl (7-17); Carbon Dioxide 24 mmol/L (22-30); Chloride 106 mmol/L (98-107); Estimated Creatinine Clearance > 125 ml/min; Glucose 102 mg/dl (70-99); Potassium 4.2 mmol/L (3.5-5.1); Sodium 136 mmol/L (135-145); Total Bilirubin 10.9 mg/dl (0.2-1.3); Total Protein 6.2 g/dl (6.3-8.2); eGFR > 60.00
--- NOTE | 2025-02-01 06:56 | PTCARENOTE ---
Report given verbally to oncKeren marquez RN. Questions answered.
[2025-02-01] MEDS: B COMPLEX w/VITAMIN C 1 CAPLET PO (08:20)
[2025-02-01] MEDS: THERAGRAN 1 TABLET PO (08:20)
[2025-02-01] MEDS: PROTONIX 40 MG PO (08:20)
[2025-02-01] MEDS: XIFAXAN 550 MG PO ×2 (08:20→19:39)
[2025-02-01] MEDS: EFFEXOR XR 75 MG PO (08:20)
[2025-02-01] MEDS: DUPHALAC/CHRONULAC 20 GRAMS PO ×3 (08:20→19:35)
[2025-02-01] MEDS: FOLVITE 1 MG PO (08:20)
[2025-02-01] MEDS: ALDACTONE 100 MG PO (08:20)
[2025-02-01] MEDS: LASIX 40 MG PO ×2 (08:20→19:36)
[2025-02-01] MEDS: FEOSOL 325 MG PO (08:20)
[2025-02-01 08:52] LABS: INR 3.17; PT 32.4 Sec (11.4-14.6)
--- NOTE | 2025-02-01 09:06 | PTCARENOTE ---
pt received from previous rn- aox3, nsr to st on monitor, remains on 10L midflow, no complaints at this time. pt made aware of plan of care, verbalized understanding. pt turns and repositions self. all safety precautions in place, call wiley within
reach. labs sent per order.
--- NOTE | 2025-02-01 10:39 | CON.GI ---
Consultation
-
Date/Time Consultation Performed: 02/01/25
Performing Provider: Bob Lin MD
Reason for Consultation: cirrhosis, confusion
Medical History
Chief Complaint / HPI
Chief Complaint: fever, confusion
History of Present Illness:
The patient is a 39-year-old female with past medical history as noted who presents on the with fever and shortness of breath. She has a history of cirrhosis with recurrent pleural effusion. She has had multiple thoracentesis, and had been
getting them as an outpatient ordered by Dr. Manriquez, though missed her most recent 1. We are consulted today for her underlying cirrhosis. He has a history of alcohol related cirrhosis decompensated with ascites, hepatic encephalopathy, portal
hypertension and anasarca. She is following up with [facility], being enrolled for OLT, though not listed yet. Currently she is feeling okay, feeling that her breathing is a bit better. She has not had any fever since admission
and her leukocytosis has normalized. She denies any significant abdominal pain, melena or hematochezia.
Past Medical History
Past Medical History: Other (Cirrhosis secondary to alcohol, with history of alcohol hepatitis, decompensated with hepatic encephalopathy and portal hypertension, ascites anasarca, anastomotic ulcer, perforated duodenal ulcer status postrepair)
Past Surgical History: Other (Gastric bypass, perforated duodenal ulcer with surgical repair)
Social History
Tobacco: Smoker
Alcohol: Former
Family History
Family History: Reviewed & Not Pertinent
Allergies / Home Medications
Allergy/AdvReac Type Severity Reaction Status Date / Time
No Known Allergies Allergy Verified 01/21/25 09:31
�Medication �Instructions �Recorded
dextroamphetamine-amphetamine 30 30 mg PO BID Neurological Condition 06/17/24
mg tablet
folic acid 1 mg tablet 1 mg PO DAILY Supplement 06/17/24
therapeutic multivitamin 1 tab PO DAILY Supplement 06/17/24
vitamin B complex 1 cap PO DAILY Supplement 06/17/24
naltrexone 50 mg tablet 50 mg PO DAILY alcohol use disorder 10/13/24
pantoprazole 40 mg tablet,delayed 40 mg PO DAILY Gastrointestinal 10/13/24
release Issue
venlafaxine 75 mg capsule,extended 75 mg PO DAILY Mental 10/13/24
release 24 hr Health/Anxiety
lactulose 20 gram/30 mL oral 20 g (30 mL) PO TID #3,000 mL 10/16/24
solution
rifaximin 550 mg tablet (Xifaxan) 550 mg PO BID #60 tabs 10/16/24
spironolactone 100 mg tablet 100 mg PO DAILY Blood Pressure 11/06/24
furosemide 40 mg tablet 40 mg PO BID Fluid 11/12/24
Retention/Swelling #60 tabs
cholecalciferol (vitamin D3) 25 25 mcg PO DAILY Supplement 01/30/25
mcg (1,000 unit) tablet (Vitamin
D3)
lorazepam 0.5 mg tablet 0.5 mg PRN anxiety 01/30/25
Review of Systems
-
All other systems: A 12 pt ROS was Negative except as stated above in HPI
Vital Signs
Temp Pulse Resp BP Pulse Ox
97.7 F 101 19 142/69 97
02/01/25 05:30 02/01/25 09:00 02/01/25 09:00 02/01/25 08:00 02/01/25 09:00
Physical Exam
Exam
General: NAD, jaundice, alert and oriented x 3 though some mild difficulty with word finding
HEENT: MMM, icteric, no lymphadenopathy
Heart: Regular, no murmurs
Lungs: Decreased bilaterally
Abdomen: normal bowel sounds, soft, no tenderness, no rebound or guarding, no masses, minimal if any appreciable ascites
Extremeties: 1+ edema
Skin: no rashes
Results
WBC 7.9 10^3/uL (4.8-10.8) 02/01/25 05:40
Hgb 8.1 g/dL (12.0-16.0) L 02/01/25 05:40
Hct 24.8 % (37.0-47.0) L 02/01/25 05:40
MCV 104.6 fL (81.0-99.0) H 02/01/25 05:40
Plt Count 59 10^3/uL (130-400) L 02/01/25 05:40
Absolute Neuts (auto) 10.6 10^3/uL (1.4-6.5) H 01/30/25 18:48
PT 32.4 Sec (11.4-14.6) H 02/01/25 08:18
INR 3.17 02/01/25 08:18
APTT 54.2 Sec (23.4-35.0) H 01/30/25 19:04
Sodium 136 mmol/L (135-145) 02/01/25 05:40
Potassium 4.2 mmol/L (3.5-5.1) 02/01/25 05:40
Chloride 106 mmol/L (98-107) 02/01/25 05:40
Carbon Dioxide 24 mmol/L (22-30) 02/01/25 05:40
BUN 12 mg/dl (7-17) 02/01/25 05:40
Creatinine 0.6 mg/dL (0.6-1.0) 02/01/25 05:40
Calcium 8.0 mg/dl (8.4-10.2) L 02/01/25 05:40
Total Bilirubin 10.9 mg/dl (0.2-1.3) H 02/01/25 05:40
AST 140 U/L (14-36) H 02/01/25 05:40
ALT 65 U/L (0-35) H 02/01/25 05:40
Alkaline Phosphatase 212 U/L (38-126) H 02/01/25 05:40
Diagnostic Image Results:
US 01/21:
IMPRESSION:
Trace volume of ascites not sufficient for percutaneous drainage.
Prior GI Procedures:
EGD: 08/2024 [facility] - Normal esophagus.
- Rekha-en-Y gastrojejunostomy.
- Portal hypertensive gastropathy.
- Normal examined jejunum.
- No specimens collected.
EGD 2016
- Normal esophagus.
- Z-line regular, 38 cm from the incisors.
- Rekha-en-Y gastrojejunostomy with gastrojejunal
anastomosis characterized by healthy appearing mucosa.
- Normal stomach. Biopsied.
- One non-bleeding superficial chronic anastomotic
duodenal ulcer with no stigmata of bleeding. Biopsied.
- Duodenal foreign body (metal suture) .
- Normal examined duodenum. Biopsied.
bx anastomic ulcer, neg H pylori
Colonoscopy: 2016
- Preparation of the colon was fair. Liquid brown stool
in the entire examined colon. No blood seen.
- Non-bleeding internal hemorrhoids.
- The entire examined colon is normal.
- The examined portion of the ileum was normal.
- No specimens collected.
Assessment / Plan
-
1. Cirrhosis: Secondary to alcohol, patient states last drink was end of 2023, decompensated with portal hypertension, hepatic encephalopathy, edema, ascites and pleural effusion. She now presents with fever and leukocytosis with shortness of
breath with recurrent pleural effusion, though no fevers here and resolution of her leukocytosis. She is for thoracentesis today And paracentesis if enough fluid, though 10 days ago not enough fluid to tap. Will continue diuretics, salt
restriction, Xifaxan and lactulose. She is currently on ceftriaxone empirically. I called her asset management coordinator at the [facility] to update her of her current status, meld of 31. She states that
she is not listed yet though in the process. Will keep her updated with her MELD score and if increasing then could consider transfer for more emergent listing.
2. Bacteremia: Per the patient's asset management coordinator at the [facility] she did see ID as an outpatient for indeterminant QuantiFERON gold, and blood cultures there showed gram-negative rods. I updated her that blood cultures here x
2 so far are negative, and will inform the team.
-
-
Thank you for consultation and allowing me to participate in the patient's care. Please call the utilization specialist GI physician during the after hours with any questions or concerns.
--- NOTE | 2025-02-01 13:33 | CON.ID ---
Consultation
-
Date/Time Consultation Requested: 02/01/2025 1014
Date/Time Consultation Performed: 02/01/2025 1328
Requesting Provider: Dr. Scott
Performing Provider: Dr. De La Cruz
Reason for Consultation: Fever
Chief Complaint / Past History
History of Present Illness
Laila Salas is a 39-year-old female being evaluated regarding fever. History is obtained from chart review, along with patient interview.
The patient has a significant past medical history of alcoholic cirrhosis and reportedly her last drink was over a year ago. Further history includes that of pleural effusion likely secondary to hepatic hydrothorax. She presents to the hospital on
01/30 noting increased fatigue and shortness of breath x 1 day. She reports a cough over the same timeframe. According to ER notes, her sister reported that the patient had intermittent confusion and she was found to be 103 degrees at home. No
history of abdominal pain, nausea or vomiting prior to admission. The patient receives ongoing weekly thoracentesis, but did not have it performed 3 days prior to admission. Patient denies any recent paracentesis.
Additionally, the patient reports that she had been feeling unwell 2 weeks ago, and had been in contact with one of her physicians who ordered blood cultures. Blood cultures obtained on 01/29 are now positive for Klebsiella pneumoniae.
Since admission, the patient has remained afebrile. Leukocytosis noted at admission is now improved.
Past History
Additional Past Medical History:
ADD
Peptic ulcer disease
Thrombocytopenia
Alcoholic cirrhosis with decompensation
Hepatic encephalopathy
Portal hypertension
Anxiety/depression
Hx endocarditis
Additional Past Surgical History:
Rekha-en-Y bypass (2011)
Perforated duodenal ulcer repair
Allergy History:
No Known Allergies Allergy (Verified 01/21/25 09:31)
Medications Reviewed: Yes
Current Antibiotics:
Rocephin 1 g IV every 24 hours
Xifaxan 550 mg p.o. twice daily
Social History
Tobacco: Smoker
Alcohol: Former
Drug: None
Family History
Family History: Not Pertinent
Review of Systems
Vital Signs
Temp Pulse Resp BP Pulse Ox
97.9 F 102 17 124/62 97
02/01/25 11:59 02/01/25 11:00 02/01/25 11:00 02/01/25 10:00 02/01/25 11:00
Physical Exam
Physical Exam
Constitutional: No Acute Distress, Comfortable, Acutely Ill, Chronically Ill and Non-toxic
Head: Normocephalic
Eyes: No Conjunctival Hemorrhage and Other (Marked scleral icterus)
Oral: No Thrush and No Ulcers
Cardiovascular: Regular Rate and S1/S2; Negative S3/S4
Pulmonary: Clear; Negative Wheezes or Rhonchi
Gastrointestinal: Soft, Distended, Normal Bowel Sounds, No Rebound and No Guarding
Genito-Urinary: Negative Perdomo
Extremities: Negative Edema (3+ lower extremity bilaterally) or Cyanosis
Skin: Warm and Jaundice (Marked); Negative Dry or Rash
Neurological: Awake and Alert
Psychological: Calm
Lab / Diagnostic Study Results
02/01/25 05:40
02/01/25 05:40
Abs Immat Gran (auto) 0.3 10^3/uL (0-0.05) H 01/30/25 18:48
Absolute Neuts (auto) 10.6 10^3/uL (1.4-6.5) H 01/30/25 18:48
Absolute Lymphs (auto) 1.0 10^3/uL (1.2-3.4) L 01/30/25 18:48
Absolute Monos (auto) 1.5 10^3/uL (0.1-0.6) H 01/30/25 18:48
Absolute Basos (auto) 0.0 10^3/uL (0-0.2) 01/30/25 18:48
Immature Gran % 1.9 % (0-0.5) H 01/30/25 18:48
Neutrophils % 78.8 % (42.2-75.2) H 01/30/25 18:48
Lymphocytes % 7.6 % (20.5-51.1) L 01/30/25 18:48
Monocytes % 11.3 % (1.7-9.3) H 01/30/25 18:48
Eosinophils % 0.1 % (0-6) 01/30/25 18:48
Basophils % 0.3 % (0-2) 01/30/25 18:48
PT 32.4 Sec (11.4-14.6) H 02/01/25 08:18
INR 3.17 02/01/25 08:18
Lactic Acid 1.9 mmol/L (0.7-2.0) 01/30/25 23:33
Procalcitonin 0.87 ng/ml (0.0-0.25) H 01/30/25 21:59
Microbiology Results
Micro:
01/31/25 05:26 MRSA Screen - Final
Nose No Methicillin Resistant Staphylococcus aureus isolated.
01/31/25 00:35 Blood Culture - Preliminary
Blood/Venous No Growth in 24 hours- Final report to follow
01/30/25 19:04 Blood Culture - Preliminary
Blood/Venous No Growth in 24 hours- Final report to follow
01/31/25 00:23 Nasal Screen MRSA (PCR) - Final
Nose MRSA not detected - performed by PCR methodology.
01/30/25 19:04 Influenza Types A & B (NUSRAT) - Final
Nasal Swab Negative for Influenza A & B, NAAT
Negative results must be combined with clinical observations
and patient history.
Nucleic Acid Amplification test (NAAT)performed on the
[employer] platform.
01/29/2025 Blood Culture
(performed at [facility]) Klebsiella pneumoniae
Augmentin�S
Ampicillin�R
Cefazolin�S
Cefepime�S
Cefoxitin�S
Cefpodoxime�S
Ceftriaxone�S
Ciprofloxacin�S
Ertapenem�S
Gentamicin�S
Levofloxacin�S
Meropenem�S
Piperacillin/tazobactam�S
Tetracycline�S
Tobramycin�S
Trimethoprim/sulfa�S
Imaging:
01/30/2025 CXR (2 view): No visible pneumothorax. Moderate bilateral pleural effusions, right greater than left. Underlying pneumonia cannot be excluded heart is top normal size.
Assessment / Plan
Reported fever
Leukocytosis
Klebsiella pneumoniae bacteremia
Alcoholic cirrhosis with decompensation
ADD
Peptic ulcer disease
Thrombocytopenia
Hepatic encephalopathy
Portal hypertension
Anxiety/depression
Hx endocarditis
Recommendations:
Source of Klebsiella is not immediately clear. Patient denies abdominal pain, making SBP somewhat less likely. Chest x-ray without infiltrates.
Continue with ceftriaxone for the present.
Follow repeat blood cultures to ensure clearance.
Monitor white count and temperature curve.
Patient for thoracentesis later today.
Care Review
Plan reviewed with: Physician (Hospitalist; GI)
--- NOTE | 2025-02-01 13:52 | W.PN.HOSP.TC ---
Today's Communication/Plan
-
Thoracentesis and paracentesis today
Assessment / Plan
Assessment / Plan
Assessment/plan
Severe sepsis with acute organ dysfunction
Gram-negative bacteremia with Klebsiella pneumonia
Patient meets sepsis criteria on admission
Heart rate max 123
WBCs 13.4
Respiratory rate 26
Temperature (subjective fever)
Source of infection is (UTI-patient tested positive for mono)-cannot rule out underlying pneumonia may consider CT chest after thoracentesis.
Acute organ dysfunction in form of acute respiratory failure
IV antibiotic in form of Rocephin
Blood culture pending
Urine culture pending
Consider consult infectious disease based on clinical course
COVID and flu negative
02/01
Patient had outpatient blood culture drawn on January [address] [facility].
they called with positive blood culture x2 both vials for Klebsiella pneumonia, infectious is consulted.
Continue Rocephin for now and awaiting paracentesis
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
-chest x ray shows:
There is moderate bilateral pleural effusions, right larger than left. Underlying pneumonia cannot be excluded.
Increased oxygen requirement from 2 L to 6 L
-Continue supplemental oxygen, wean as tolerated
-IR consulted for thoracentesis/paracentesis
Liver cirrhosis with ascites
-Obtain ultrasound of abdomen
-IR consulted for paracentesis
Ammonia level 24
Patient will need Follows with Dr. Declan DUMONT transplant public records officer.
Continue Lasix, rifaximin, lactulose
02/01
Seen by GI, elevated MELD score 31, as per GI if continue to increase to consider transfer to [facility]
Anemia of chronic disease- Chronic thrombocytopenia
-No active bleed
-Continue to monitor
History of peptic ulcer disease status postsurgical repair of perforated duodenal ulcer
Continue PPI
Anxiety
-Continue SSRI
History of internal hemorrhoids
no bleeding
History of tobacco use
-Social smoker
CODE STATUS: Full code
DVT prophylaxis: SCDS
Diet: Fluid restriction
Total time spent on today's encounter was 75 minutes which included time spent in counseling the patient/family regarding diagnosis and treatment plan as listed above, goals of care, and symptom management. Case was discussed with nursing staff,
specialists, and care coordinators/case management. All labs and imaging personally reviewed by me. Remainder the time spent in detailed review of previous records, lab data, imaging, and other medical provider documentation.
Anticipated Discharge: > 48 hours
Subjective/Interval History
-
Date of Service: February 01, 2025
Patient seen and examined at bedside, patient require more oxygen overnight, currently on 10 L.
Consulted gastroenterology and infectious disease
Still complaining of shortness of breath.
Positive outpatient blood culture.
Objective Data
-
Labs:
Laboratory Results
02/01/25 02/01/25
05:40 08:18
WBC 7.9
Hgb 8.1 L
Hct 24.8 L
Plt Count 59 L
PT 32.4 H
INR 3.17
Sodium 136
Potassium 4.2
Chloride 106
Carbon Dioxide 24
BUN 12
Creatinine 0.6
Glucose 102 H
Calcium 8.0 L
Total Bilirubin 10.9 H
AST 140 H
ALT 65 H
Alkaline Phosphatase 212 H
Vital Signs:
Vital Signs
Temp Pulse Resp BP Pulse Ox
97.9 F 102 17 124/62 97
02/01/25 11:59 02/01/25 11:00 02/01/25 11:00 02/01/25 10:00 02/01/25 11:00
I&O
01/31/25 02/01/25 02/02/25
06:59 06:59 06:59
Intake Total 195 / 195 1035 / 1035
Output Total 125 / 125 500 / 500
Balance 70 / 70 535 / 535
Physical Exam
-
General: Respiratory Distress and Appears in Distress
HEENT: Normocephalic, Atraumatic, Moist Mucous Membranes, No Ptosis, PERRLA and Nose Appears Normal
Respiratory: Rales, Rhonchi, Crackles and Non Labored Respirations
Cardiac: Regular Rhythm and S1/S2
Breast: Deferred by me
GI: Soft, Nontender, Nondistended and Normal Bowel Sounds
Genito-urinary: No Costovertebral Tender
Musculoskeletal: No Clubbing, No Cyanosis and No Edema
Skin: Warm
Neuro: Awake, Alert, Oriented, AO x 3 and No Motor Deficits
Psych: Calm
Data Reviewed
-
Diagnostic Radiology: Image personally visualized and interpreted and Report Reviewed by me
CT Scan: Image personally visualized and interpreted and Report Reviewed by me
Ultrasound: Image personally visualized and interpreted and Report Reviewed by me
MRI: Image personally visualized and interpreted and Report Reviewed by me
Medical Tests (Nuc Med, Echo etc): Image personally visualized and interpreted and Report Reviewed by me
Labs: Labs Reviewed by me
Old Records: Reviewed
--- NOTE | 2025-02-01 14:49 | PTCARENOTE ---
pt taken to IR for thora, weaned to 2LNC. ambulating in room as tolerated.
[2025-02-01 16:56] LABS: Body Fluid pH 7.49
--- NOTE | 2025-02-01 17:09 | PTCARENOTE ---
pt back from ir- right thora- pt sats 100% on room air, discussed with Dr. Scott, pt downgraded to tele. pt with no complaints at this time.
[2025-02-01 17:14] LABS: Body Fluid WBC 665 /CUMM
[2025-02-01 17:15] LABS: Body Fluid Mononuclear 72.3 %; Body Fluid Polymorphonuclear 27.7 %
[2025-02-01 17:26] LABS: Body Fluid Amylase < 30 U/L; Body Fluid Glucose 107 mg/dl; Body Fluid LDH 95 U/L; Body Fluid Protein < 2.0 g/dl; Body Fluid Triglycerides 34 mg/dl
[2025-02-01 17:31] LABS: Body Fluid Second Tech DW
[2025-02-01] MEDS: TYLENOL 650 MG PO (19:35)
--- NOTE | 2025-02-01 19:45 | PTCARENOTE ---
Patient received lying in bed with eyes closed, respirations nonlabored. She rouses easily to name called. She is without apparent signs of distress or discomfort. A&OX4. She currently c/o right flank, posterior chest discomfort s/p thoracentesis.
Irais Diaz APN contacted for Tylenol order, Tylenol given. Afebrile, VSS. BBS with UL clear, right base with much better aeration, left base diminished. S1S2 tachy with positive murmur. ST on CM. Positive pulses x 4 extremities. BLE edema 2+.
Abdomen distended but soft. Dinner tray at bedside but patient refuses to eat at this time. Labs and chart reviewed. Bed in low and locked position, Call wiley within reach.
--- NOTE | 2025-02-01 22:00 | PTCARENOTE ---
Patient appears to be sleeping comfortably when undisturbed. Patient refuses evening cares/hygiene. Room quieted for sleep. Right flank pain improved.
[2025-02-02] VITALS: BP 120/58
[2025-02-02] MEDS: STERILE WATER FOR INJECTION 10 ML IV (05:49)
[2025-02-02] MEDS: ROCEPHIN 1000 MG IV (05:52)
[2025-02-02 05:53] VITALS: BMI 32.5
[2025-02-02 05:57] VITALS: BP 111/55
[2025-02-02 06:40] LABS: INR 3.02; PT 31.2 Sec (11.4-14.6)
[2025-02-02 06:47] LABS: Hematocrit 25.5 % (37.0-47.0); Hemoglobin 8.5 g/dL (12.0-16.0); Mean Corp Hgb Conc. 33.3 g/dL (33.0-37.0); Mean Corpuscular Hgb 35.4 pg (27.0-31.0); Mean Corpuscular Volume 106.3 fL (81.0-99.0); Mean Platelet Volume 9.6 fL (7.4-10.4); Platelet Count 73 10^3/uL (130-400); White Blood Cell Count 8.3 10^3/uL (4.8-10.8)
[2025-02-02 06:53] LABS: ALT (SGPT) 67 U/L (0-35); AST (SGOT) 150 U/L (14-36); Albumin 2.5 g/dl (3.5-5.0); Alkaline Phosphatase 258 U/L (38-126); Blood Urea Nitrogen 13 mg/dl (7-17); Carbon Dioxide 26 mmol/L (22-30); Chloride 104 mmol/L (98-107); Estimated Creatinine Clearance 110 ml/min; Glucose 113 mg/dl (70-99); Potassium 4.3 mmol/L (3.5-5.1); Sodium 135 mmol/L (135-145); Total Bilirubin 10.8 mg/dl (0.2-1.3); Total Protein 6.5 g/dl (6.3-8.2); eGFR > 60.00
--- NOTE | 2025-02-02 07:18 | PTCARENOTE ---
Report given verbally to oncoming Byron mills RN. Questions answered.
[2025-02-02] MEDS: XIFAXAN 550 MG PO (07:36)
[2025-02-02] MEDS: DUPHALAC/CHRONULAC 20 GRAMS PO ×2 (07:36→15:09)
[2025-02-02] MEDS: B COMPLEX w/VITAMIN C 1 CAPLET PO (07:36)
[2025-02-02] MEDS: FOLVITE 1 MG PO (07:36)
[2025-02-02] MEDS: FEOSOL PO ×2 (07:36→07:39)
[2025-02-02] MEDS: EFFEXOR XR 75 MG PO (07:36)
[2025-02-02] MEDS: THERAGRAN 1 TABLET PO (07:36)
[2025-02-02 07:37] VITALS: BP 116/54
[2025-02-02] MEDS: ALDACTONE 100 MG PO (07:37)
[2025-02-02] MEDS: PROTONIX 40 MG PO (07:38)
[2025-02-02] MEDS: LASIX 40 MG PO (07:38)
--- NOTE | 2025-02-02 08:12 | W.PN.GI.CBS2 ---
Today's Communication / Plan
-
MRI abdomen today; await input from ID regarding abx, possible d/c pending further recommendations from ID
Assessment / Plan
-
1. Cirrhosis: Secondary to alcohol, patient states last drink was end of 2023, decompensated with portal hypertension, hepatic encephalopathy, edema, ascites and pleural effusion. She now presents with fever and leukocytosis with shortness of
breath with recurrent pleural effusion, though no fevers here and resolution of her leukocytosis. She is s/p thoracentesis yesterday, not enough fluid for paracentesis. No evidence of infection in pleural fluid. Dr. Lin spoke to her transplant
coordinator at the [facility]ask[facility] to update her on her MELD score of 31. No plans for inpatient transfer at this time. She has scheduled follow-up to continue her evaluation (not currently listed). She
requested a MRI of the Abdomen, as ordered as part of her workup, which is planned for today. I did advise her to request a disc of the images so that she can give to her transplant team to review.
2. Bacteremia: Positive outpatient blood cultures for gram-negative rods, Klebsiella. She was initially febrile with leukocytosis but that has resolved since arrival. Repeat blood cultures x2 NGTD. ID following. She is currently on Rocephin. Will
ask ID to comment on duration of treatment and if able to be discharged today, if okay to change to PO at this point. Per the Outpatient labs also significant for indeterminant QuantiFERON gold.
Subjective
Subjective
Date of Service: February 02, 2025
Patient seen in follow-up today, status post thoracentesis yesterday, pleural fluid negative for infection. Not enough fluid present for paracentesis. She is very eager for discharge today, planning to have MRI of abdomen performed here as this
was supposed to be performed as an outpatient. She has scheduled follow-up at [facility] to continue her transplant evaluation.
Objective
Data Reviewed
Laboratory Data:
Laboratory Results
02/02/25 06:08
02/02/25 06:08
Laboratory Results
PT 31.2 Sec (11.4-14.6) H 02/02/25 06:00
INR 3.02 02/02/25 06:00
APTT 54.2 Sec (23.4-35.0) H 01/30/25 19:04
Total Bilirubin 10.8 mg/dl (0.2-1.3) H 02/02/25 06:08
AST 150 U/L (14-36) H 02/02/25 06:08
ALT 67 U/L (0-35) H 02/02/25 06:08
Alkaline Phosphatase 258 U/L (38-126) H 02/02/25 06:08
Vital Signs and I&O:
Vital Signs
Temp Pulse Resp BP Pulse Ox
97.8 F 89 24 116/54 95
02/02/25 06:00 02/02/25 07:37 02/01/25 16:01 02/02/25 07:37 02/02/25 06:00
I&O
02/01/25 02/02/25 02/03/25
06:59 06:59 06:59
Intake Total 1035 / 1035 120 / 120
Output Total 500 / 500
Balance 535 / 535 120 / 120
Physical Exam
Physical Exam
GENERAL: In no acute distress, appears comfortable
HEENT: +scleral icterus
ABDOMEN: +BS; soft, non-tender and non-distended; no rebound or guarding
EXT: +1 edema
SKIN: Dry, warm. +jaundice
NEURO: AAOx3. No asterixes
--- NOTE | 2025-02-02 11:03 | W.PN.ID1 ---
Date of Service
Date of Service: February 02, 2025
Today's Communication
Continue antibiotics. See below�
Assessment / Plan
Reported fever
Leukocytosis
Klebsiella pneumoniae bacteremia
Alcoholic cirrhosis with decompensation
ADD
Peptic ulcer disease
Thrombocytopenia
Hepatic encephalopathy
Portal hypertension
Anxiety/depression
Hx endocarditis
Recommendations:
Source of Klebsiella is not immediately clear. Patient denies abdominal pain, making SBP somewhat less likely. Chest x-ray without infiltrates. Thoracentesis performed yesterday revealed WBC = 665, but only 27% polys. GI translocation a
possibility, though.
Continue with ceftriaxone while inpatient. At D/C, transition to cephalexin 500 mg p.o. 4 times daily, through 02/11
Given the occult source of the bacteremia, patient should have follow-up blood cultures 2 weeks following completion of antibiotics.
I have placed a call to the patient's ID physician at [facility] (Dr. Renetta Guidry; [phone]) and will speak to her when she calls.
����������������������������������������������������������
Vital Signs / Physical Exam
Vital Signs
Vital Signs
Temp Pulse Resp BP Pulse Ox
97.9 F 96 24 116/54 95
02/02/25 08:00 02/02/25 10:00 02/01/25 16:01 02/02/25 07:37 02/02/25 06:00
Objective Data
Lab Data
Lab Results
02/02/25 06:08
02/02/25 06:08
PT 31.2 Sec (11.4-14.6) H 02/02/25 06:00
INR 3.02 02/02/25 06:00
APTT 54.2 Sec (23.4-35.0) H 01/30/25 19:04
Estimated Creat Clear 110 ml/min 02/02/25 06:08
Lactic Acid 1.9 mmol/L (0.7-2.0) 01/30/25 23:33
Total Bilirubin 10.8 mg/dl (0.2-1.3) H 02/02/25 06:08
AST 150 U/L (14-36) H 02/02/25 06:08
ALT 67 U/L (0-35) H 02/02/25 06:08
Alkaline Phosphatase 258 U/L (38-126) H 02/02/25 06:08
Most recent labs reviewed.
Micro Results:
01/31/25 00:35 Blood Culture - Preliminary
Blood/Venous No Growth in 48 hours- Final report to follow
01/30/25 19:04 Blood Culture - Preliminary
Blood/Venous No Growth in 48 hours- Final report to follow
02/01/25 15:52 Fungal Smear - Pending
Pleural Fluid Fungal Culture - Preliminary
Culture in progress.
Positive cultures are reported as soon as detected.
Final report to follow in four to five weeks.
02/01/25 15:52 Acid Fast Bacilli Smear - Pending
Pleural Fluid Acid Fast Bacilli Culture - Pending
02/01/25 15:52 Body Fluid Culture - Pending
Pleural Fluid Gram Stain - Pending
01/31/25 05:26 MRSA Screen - Final
Nose No Methicillin Resistant Staphylococcus aureus isolated.
01/31/25 00:23 Nasal Screen MRSA (PCR) - Final
Nose MRSA not detected - performed by PCR methodology.
01/30/25 19:04 Influenza Types A & B (NUSRAT) - Final
Nasal Swab Negative for Influenza A & B, NAAT
Negative results must be combined with clinical observations
and patient history.
Nucleic Acid Amplification test (NAAT)performed on the
[employer] platform.
01/29/2025 Blood Culture
(performed at [facility]) Klebsiella pneumoniae
Imaging:
01/30/2025 CXR (2 view): No visible pneumothorax. Moderate bilateral pleural effusions, right greater than left. Underlying pneumonia cannot be excluded heart is top normal size.
Care Review
Plan reviewed with: Nurse and Physician (GI; Hospitalist)
[2025-02-02 11:44] VITALS: BP 122/59
--- NOTE | 2025-02-02 14:05 | W.PN.HOSP.TC ---
Today's Communication/Plan
-
Discharge home today
Assessment / Plan
Assessment / Plan
Assessment/plan
Severe sepsis with acute organ dysfunction
Gram-negative bacteremia with Klebsiella pneumonia
Patient meets sepsis criteria on admission
Heart rate max 123
WBCs 13.4
Respiratory rate 26
Temperature (subjective fever)
Source of infection is (UTI-patient tested positive for mono)-cannot rule out underlying pneumonia may consider CT chest after thoracentesis.
Acute organ dysfunction in form of acute respiratory failure
IV antibiotic in form of Rocephin
Blood culture pending
Urine culture pending
Consider consult infectious disease based on clinical course
COVID and flu negative
02/01
Patient had outpatient blood culture drawn on January [address] [facility].
they called with positive blood culture x2 both vials for Klebsiella pneumonia, infectious is consulted.
Continue Rocephin for now and awaiting paracentesis
02/02
Infectious disease recommending Keflex on discharge through February 11.
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
-chest x ray shows:
There is moderate bilateral pleural effusions, right larger than left. Underlying pneumonia cannot be excluded.
Increased oxygen requirement from 2 L to 6 L
-Continue supplemental oxygen, wean as tolerated
-IR consulted for thoracentesis/paracentesis
02/02
Status post thoracentesis.
Patient currently on room air
Liver cirrhosis with ascites
-Obtain ultrasound of abdomen
-IR consulted for paracentesis
Ammonia level 24
Patient will need Follows with Dr. Declan DUMONT transplant special population paraprofessional.
Continue Lasix, rifaximin, lactulose
02/01
Seen by GI, elevated MELD score 31, as per GI if continue to increase to consider transfer to [facility]
02/02
MRI done showed:
Hepatic cirrhosis with secondary findings of portal hypertension including splenomegaly, a large recannulated umbilical vein with anterior abdominal wall varices, and mild abdominal ascites.
Partially imaged bilateral pleural fluid.
Bibasilar atelectasis versus pneumonia.
Anemia of chronic disease- Chronic thrombocytopenia
-No active bleed
-Continue to monitor
History of peptic ulcer disease status postsurgical repair of perforated duodenal ulcer
Continue PPI
Anxiety
-Continue SSRI
History of internal hemorrhoids
no bleeding
History of tobacco use
-Social smoker
CODE STATUS: Full code
DVT prophylaxis: SCDS
Diet: Fluid restriction
Total time spent on today's encounter was 65 minutes which included time spent in counseling the patient/family regarding diagnosis and treatment plan as listed above, goals of care, and symptom management. Case was discussed with nursing staff,
specialists, and care coordinators/case management. All labs and imaging personally reviewed by me. Remainder the time spent in detailed review of previous records, lab data, imaging, and other medical provider documentation.
Anticipated Discharge: Today
Subjective/Interval History
-
Date of Service: February 02, 2025
Patient seen and examined at bedside, feeling much better after thoracentesis, currently on room air, shortness of breath improved.
MRI abdomen shows :
Hepatic cirrhosis with secondary findings of portal hypertension including splenomegaly, a large recannulated umbilical vein with anterior abdominal wall varices, and mild abdominal ascites.
Partially imaged bilateral pleural fluid.
Bibasilar atelectasis versus pneumonia.
Objective Data
-
Labs:
Laboratory Results
02/02/25 02/02/25
06:00 06:08
WBC 8.3
Hgb 8.5 L
Hct 25.5 L
Plt Count 73 L D
PT 31.2 H
INR 3.02
Sodium 135
Potassium 4.3
Chloride 104
Carbon Dioxide 26
BUN 13
Creatinine 0.7
Glucose 113 H
Calcium 8.0 L
Total Bilirubin 10.8 H
AST 150 H
ALT 67 H
Alkaline Phosphatase 258 H
Vital Signs:
Vital Signs
Temp Pulse Resp BP Pulse Ox
98.3 F 101 18 122/59 96
02/02/25 12:10 02/02/25 11:44 02/02/25 11:48 02/02/25 11:44 02/02/25 11:48
I&O
02/01/25 02/02/25 02/03/25
06:59 06:59 06:59
Intake Total 1035 / 1035 120 / 120
Output Total 500 / 500
Balance 535 / 535 120 / 120
Physical Exam
-
General: No Apparent Distress
HEENT: Normocephalic, Atraumatic, Moist Mucous Membranes, No Ptosis, PERRLA and Nose Appears Normal
Respiratory: Rales, Rhonchi, Crackles and Non Labored Respirations
Cardiac: Regular Rhythm and S1/S2
Breast: Deferred by me
GI: Soft and Distended
Genito-urinary: No Costovertebral Tender
Musculoskeletal: No Clubbing, No Cyanosis and No Edema
Skin: Warm
Neuro: Awake, Alert, Oriented, AO x 3 and No Motor Deficits
Psych: Calm
--- NOTE | 2025-02-02 14:16 | W.DCSUMMARY ---
Discharge Summary
Discharge Data
Date of Admission: 01/30/25
Date of Discharge: 02/02/25
-
Pending Results: No
Hospital Course
Impression:
39-year-old female the past medical history of alcohol related liver failure who reports increased fatigue and shortness of breath for past one week. Additionally, patient reports a cough with productive sputum which at times bloody, brownish or
yellowish color. she had a fever of 102 at home. she noticed her abdomen is distended and LE is swollen. Sob worse with exertion. Her sister reports that she is having intermittent confusion since yesterday. She denies abdominal pain, nausea,
vomiting and diarrhea. she is complained of MARI. denied sore throat. denied dysuria or hematuria. Patient reports that she supposed to get a thoracentesis done every but unfortunately due to ' problems with the order', she did not undergo
thoracentesis 3 days ago that she was supposed to.
Patient admitted with acute hypoxic respiratory failure secondary to pleural effusion but also outpatient blood culture came back positive for Klebsiella pneumonia, seen by infectious disease and GI.
Was started on Rocephin and has better infectious disease will be discharged on Keflex through February 11.
Repeat blood cultures during admission so far negative.
Status post thoracentesis and removal of 1650cc
After thoracentesis, respiratory status improved and patient was able to be weaned off oxygen and currently on room air.
Assessment/plan:
Assessment / Plan
Assessment/plan
Severe sepsis with acute organ dysfunction
Gram-negative bacteremia with Klebsiella pneumonia
Patient meets sepsis criteria on admission
Heart rate max 123
WBCs 13.4
Respiratory rate 26
Temperature (subjective fever)
Source of infection is (UTI-patient tested positive for mono)-cannot rule out underlying pneumonia may consider CT chest after thoracentesis.
Acute organ dysfunction in form of acute respiratory failure
IV antibiotic in form of Rocephin
Blood culture pending
Urine culture pending
Consider consult infectious disease based on clinical course
COVID and flu negative
02/01
Patient had outpatient blood culture drawn on January 29 at [facility].
they called with positive blood culture x2 both vials for Klebsiella pneumonia, infectious is consulted.
Continue Rocephin for now and awaiting paracentesis
02/02
Infectious disease recommending Keflex on discharge through February 11.
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
-chest x ray shows:
There is moderate bilateral pleural effusions, right larger than left. Underlying pneumonia cannot be excluded.
Increased oxygen requirement from 2 L to 6 L
-Continue supplemental oxygen, wean as tolerated
-IR consulted for thoracentesis/paracentesis
02/02
Status post thoracentesis.
Patient currently on room air
Liver cirrhosis with ascites
-Obtain ultrasound of abdomen
-IR consulted for paracentesis
Ammonia level 24
Patient will need Follows with Dr. Declan DUMONT transplant game trapper.
Continue Lasix, rifaximin, lactulose
02/01
Seen by GI, elevated MELD score 31, as per GI if continue to increase to consider transfer to [facility]
02/02
MRI done showed:
Hepatic cirrhosis with secondary findings of portal hypertension including splenomegaly, a large recannulated umbilical vein with anterior abdominal wall varices, and mild abdominal ascites.
Partially imaged bilateral pleural fluid.
Bibasilar atelectasis versus pneumonia.
Anemia of chronic disease- Chronic thrombocytopenia
-No active bleed
-Continue to monitor
History of peptic ulcer disease status postsurgical repair of perforated duodenal ulcer
Continue PPI
Anxiety
-Continue SSRI
History of internal hemorrhoids
no bleeding
History of tobacco use
-Social smoker
CODE STATUS: Full code
DVT prophylaxis: SCDS
Diet: Fluid restriction
Discharge Plan
-
Patient Disposition: Home (Routine Discharge)
Discharge Diagnosis/Procedures: Pleural effusion, respiratory failure, liver cirrhosis
Condition: Fair
Diet: Low Sodium and Restrict fluids to 48 oz
Activity: As tolerated
Driving Restrictions: As prior to admission
Blood Work: Blood cultures 2 weeks following completion of antibiotics.
Referrals:
Louisa Tripathi PA-C [Family Provider] -
Prescriptions:
New
cephalexin 500 mg capsule
500 mg PO QID Qty: 40 0RF
Continued
therapeutic multivitamin Tablet
1 tab PO DAILY
dextroamphetamine-amphetamine 30 mg Tablet
30 mg PO BID
folic acid 1 mg Tablet
1 mg PO DAILY
vitamin B complex Capsule
1 cap PO DAILY
naltrexone 50 mg Tablet
50 mg PO DAILY
pantoprazole 40 MG tablet,delayed release (DR/EC)
40 mg PO DAILY
venlafaxine 75 mg Capsule,Extended Release 24hr
75 mg PO DAILY
lactulose 20 gram/30 mL Solution
20 g PO TID Qty: 3000 0RF
Xifaxan 550 mg Tablet
550 mg PO BID Qty: 60 0RF
spironolactone 100 mg Tablet
100 mg PO DAILY
furosemide 40 mg tablet
40 mg PO BID Qty: 60 0RF
cholecalciferol (vitamin D3) [Vitamin D3] 25 mcg (1,000 unit) Tablet
25 mcg PO DAILY
lorazepam 0.5 mg Tablet
0.5 mg PRN (Reason: anxiety)
Discharge Orders:
Discharge Patient (As Directed); Ordered 02/02/25
Ordered By: Pearl Scott
Discharge Date and Time
Print Language: ARMENIAN
--- NOTE | 2025-02-02 14:46 | CM ---
CM following re: discharge planning.
Reviewed pt's chart, met with pt.
Discharge order noted. Pt is aware and she stated her sister is coming to transport home.
Pt reports she is independent in all areas [employer],.
No after care VN services indicated.
D/C plan: home no needs. Sister to transport.
[2025-02-02 15:11] VITALS: BP 105/46
[2025-02-02 16:05] VITALS: BP 105/46
== END 2025-02-02 16:19 | disposition home or self-care (01) | DRG 871 ==
LOC: ICU 20:45
PROVIDERS: Nurse Practitioner Primary Care; Radiology Vascular & Interventional Radiology; Registered Nurse; ADMITTING PHYSICIAN Internal Medicine; ATTENDING PHYSICIAN General Practice; CONSULT PHYSICIAN Internal Medicine Gastroenterology; CONSULT PHYSICIAN Internal Medicine Infectious Disease; EMERGENCY PHYSICIAN Emergency Medicine; FAMILY PHYSICIAN Physician Assistant Medical
PROC: 0W993ZZ Drainage of Right Pleural Cavity, Percutaneous Approach (ICD-10-PCS; 2025-02-01)
DX: A41.59 Other Gram-negative sepsis (principal); J15.0 Pneumonia due to Klebsiella pneumoniae; J96.01 Acute respiratory failure with hypoxia; N39.0 Urinary tract infection, site not specified; J91.8 Pleural effusion in other conditions classified elsewhere; K76.6 Portal hypertension; E87.20 Acidosis, unspecified; R65.20 Severe sepsis without septic shock; B27.00 Gammaherpesviral mononucleosis without complication; K70.31 Alcoholic cirrhosis of liver with ascites; D69.6 Thrombocytopenia, unspecified; D63.8 Anemia in other chronic diseases classified elsewhere; Z87.11 Personal history of peptic ulcer disease; F41.9 Anxiety disorder, unspecified; F17.200 Nicotine dependence, unspecified, uncomplicated; F32.A Depression, unspecified; Z98.84 Bariatric surgery status; K76.82 Hepatic encephalopathy; K21.9 Gastro-esophageal reflux disease without esophagitis; F90.9 Attention-deficit hyperactivity disorder, unspecified type; Z11.52 Encounter for screening for COVID-19
CPT/HCPCS: 32555; 71045; 71046; 74183; 80053; 82140; 82150; 82945; 83605; 83615; 83986; 84145; 84157; 84478; 85014; 85025; 85027; 85610; 85730; 86308; 87015; 87040; 87070; 87102; 87116; 87205; 87206; 87502; 87641; 87811; 89051; 96365; 96375; 99291; 99406; A9581

== ENCOUNTER → 2025-02-04 09:09 | Outpatient (REF) | payer OTHER, SELFPAY ==
[2025-02-04 09:27] VITALS: BP 119/69; BP_SYST 113
[2025-02-04 09:52] VITALS: BP 97/57; BP_SYST 111
== END ==
LOC: RADI 09:09
PROVIDERS: ATTENDING PHYSICIAN Internal Medicine Transplant Hepatology; FAMILY PHYSICIAN Physician Assistant Medical
DX: J90 Pleural effusion, not elsewhere classified (principal)
CPT/HCPCS: 32555; 71045

== ENCOUNTER → 2025-02-09 08:52 | Outpatient (REF) | payer OTHER, SELFPAY ==
[2025-02-09 09:10] VITALS: BP 113/52; BP_SYST 105
== END ==
LOC: RADI 08:52
PROVIDERS: ATTENDING PHYSICIAN Internal Medicine Transplant Hepatology; FAMILY PHYSICIAN Physician Assistant Medical
DX: J90 Pleural effusion, not elsewhere classified (principal); R79.89 Other specified abnormal findings of blood chemistry; R18.8 Other ascites
CPT/HCPCS: 32555; 71045; 76705

== ENCOUNTER → 2025-02-12 07:50 | Outpatient (REF) | payer OTHER, SELFPAY ==
[2025-02-12 08:10] VITALS: BP 106/69; BP_SYST 105
[2025-02-12 08:20] VITALS: BP 106/78; BP_SYST 95
== END ==
LOC: RADI 07:50
PROVIDERS: ATTENDING PHYSICIAN Internal Medicine Transplant Hepatology; FAMILY PHYSICIAN Physician Assistant Medical
DX: J90 Pleural effusion, not elsewhere classified (principal)
CPT/HCPCS: 32555; 71045

== ENCOUNTER → 2025-02-16 10:17 | Outpatient (REF) | payer OTHER, SELFPAY ==
--- NOTE | 2025-02-16 10:04 | PN.[facility].UPD ---
Update Note - [facility]
- -
Patient is consistently late for her scheduled apts in [facility]. She has been spoken to previously about the importance of being on time and how it impacts our schedule and other patients after her. Again today she had an arrival time of 10:00 and is
still not in the hospital. We called her and she states she is 10 mins - riley away and then still needs to be registered and come back for her apt. I gave her a verbal warning that if she does not arrive on time for her appointments moving forward
she will be asked to re-schedule and will not be seen that day.
[2025-02-16 10:35] VITALS: BP 113/62; BP_SYST 105
[2025-02-16 11:00] VITALS: BP 109/48; BP_SYST 105
[2025-02-16] MEDS: TYLENOL 500 MG PO (11:26)
[2025-02-16 11:53] VITALS: BP 109/48
== END ==
LOC: RADI 10:17
PROVIDERS: ATTENDING PHYSICIAN Internal Medicine Transplant Hepatology
DX: J90 Pleural effusion, not elsewhere classified (principal)
CPT/HCPCS: 32555; 71045

== ENCOUNTER → 2025-02-22 13:25 | Outpatient (REF) | payer OTHER, SELFPAY ==
--- NOTE | 2025-02-19 10:01 | PN.[facility].UPD ---
Update Note - [facility]
- -
Patient has a scheduled apt today for paracentesis, arrival 9:30am. At 10:00 she was still not checked in at registration. She was called and is still in her car driving in. I had a conversation with this patient earlier in the week about her
habit of not showing up for her apts on time and the importance of doing so. I told her that if she is late again for her appointment she will be cancelled and need to reschedule.
I called her at 10:05 and told her she needed to reschedule due to being over 30 mins later for her scheduled arrival time.
--- NOTE | 2025-02-22 13:13 | PN.[facility].UPD ---
Update Note - [facility]
- -
02/22 - Patient was scheduled for a 1:00 arrival today for a thoracentesis. She was called on Saturday and very clearly reminded that her arrival time is 1:00 at the main lobby. At 1:15 she is still not in the hospital to register. I called Lalia
and she is still driving. I again, reviewed the fact that being late for her arrival time is unacceptable and affects our schedule.
[2025-02-22 13:42] VITALS: BP 107/50; BP_SYST 105
[2025-02-22 14:10] VITALS: BP 103/52; BP_SYST 104
== END ==
LOC: RADI 13:25
PROVIDERS: ATTENDING PHYSICIAN Internal Medicine Transplant Hepatology; FAMILY PHYSICIAN Physician Assistant Medical
DX: J90 Pleural effusion, not elsewhere classified (principal)
CPT/HCPCS: 32555; 71045

== ENCOUNTER 2025-02-26 14:23 | Emergency (ER) | payer OTHER, SELFPAY ==
[2025-02-26] VITALS (11 sets, daily range): BP systolic 92–111; BP diastolic 36–54
--- NOTE | 2025-02-26 15:38 | ED.GENMED ---
History of Present Illness
General
Chief Complaint: Blood Pressure Problem
Source: patient
Exam Limitations: none
Time Seen by Provider: 02/26/25 15:08
Nursing documentation reviewed up to this point in time: agreed with
History of Present Illness
History of Present Illness:
The patient is a 39-year-old female with a past medical history of liver cirrhosis secondary to alcoholism, with recurrent pleural effusions secondary to the liver cirrhosis. Patient was scheduled to have a thoracentesis done with interventional
radiology at 1:30 PM today. Patient reports that when she checked into have the procedure done, her blood pressure was found to be low. She was then told to go to the ED for evaluation. Patient reports she just feels tired but denies any specific
other symptoms. She denies recent fever, vomiting and diarrhea. She denies shortness of breath. She reports that she generally has a thoracentesis scheduled for twice a week. She reports she is concerned about missing her appointment today
because she would have to wait through the weekend until this Saturday to have the thoracentesis done. Patient reports swelling of her abdomen but denies any specific pain. Patient also reports swelling in her lower legs and feet, which she states
is bothersome but 'the swelling has been worse in the past'. The patient reports that she is followed by Dr. Manriquez who is a market research worker at [employer].
Past History
Past History
ED Past Medical History: Psychiatric (Anxiety, Depression, ) and Other (alcoholic hepatitis, Cirrhosis of the liver, Ulcers, Iron def anemia, )
ED Past Surgical History: Orthopedic (Jaw surgery) and Other (gastric bypass, Surgery for perforated ulcer)
Social History
Tobacco: Smoker
Alcohol: Chronic alcoholic (patient denies this at this time)
Drug: None
Personal:
Living: with family
Employment: Employed
Family History
Family History: Other
Review of Systems
Review of Systems
Allergies reviewed?: Yes
All Other Systems: ROS reviewed and negative except as documented in HPI and ROS
Constitutional: Reports fatigue
EENT: Reports no symptoms
Respiratory: Reports no symptoms
Cardiac: Reports no symptoms
ABD/GI: Reports anorexia and other (Feels full and bloated)
: Reports no symptoms
Musculoskeletal: Reports edema
Skin: Reports no symptoms
Neurological: Reports no symptoms
Endocrine: Reports no symptoms
Hematologic/Lymphatic: Reports no symptoms
Psychiatric: Reports no symptoms
Phy Exam
Physical Exam
Physical Exam:
Physical Exam
General: Chronically ill-appearing. Jaundice. Appears comfortable, fully alert, awake.
Neck: supple. no meningeal signs. normal psoterior pharynx
Heart: s1/s2 regular rate and rhythm, murmur present. equal radial pulses.
Lungs: Speaks in full sentences. Diminished breath sounds left base. Slightly diminished breath sounds right base.
Abdomen: Hepatomegaly. Ascites present. Soft throughout. distended
Neuro: alert and oriented. no focal neurological deficits
Skin: no rash
Psychiatric: well kept. interactive and cooperative
Extremities: Please plus pitting edema bilateral lower extremities. Negative Homans' sign
Course
Orders/Labs/Results
Orders:
Orders
02/26/25 15:50
[facility] CONSULT Urgent
Consulting Provider: Vesna Starkey
Was physician already notified: Yes
Reason for Consult/Procedure: thoracentesis
Acknowledgement that appropriate orders are entered: N/A
02/26/25 16:46
Furosemide [Lasix] 40 mg PO NOW STA
Vital Signs
Initial and Last Documented VS:
Initial Vital Signs
Temp Pulse Resp BP Pulse Ox
98.2 F 101 20 104/54 99
02/26/25 14:26 02/26/25 14:26 02/26/25 14:26 02/26/25 14:26 02/26/25 14:26
Last Documented Vital Signs
Temp Pulse Resp BP Pulse Ox
98.2 F 100 22 100/36 97
02/26/25 14:26 02/26/25 16:45 02/26/25 16:45 02/26/25 16:40 02/26/25 16:45
MDM/Problems Addressed
Differential Diagnosis Includes:
Acute dehydration, acute anemia, acute hyponatremia, acute on chronic albuminemia
MDM/Problems Addressed:
Patient presents with acutely low blood pressure
Chronic conditions affecting care:
Liver cirrhosis
Acute Exacerbation and/or Progression of Chronic Illness:
Patient may have acute hypoalbuminemia due to worsening liver failure
*Pulse Oximetry
Patient hypoxic: no
*Retail Service Specialist Interpretation
Rate: normal
Interpretation: normal
Rhythm: sinus
*Critical Care Note
Total Time (30-74mins, 75-104mins- exclusive of procedures): Not Applicable
Data Reviewed
Review of Other/Old Records Reveals: Discharge Summary (Discharge summary reviewed from February 02, 2025 when patient was admitted for sepsis and likely pneumonia)
Source: patient
Update Note
Update Note:
3:30 PM patient reports she feels well other than feeling tired. Patient reports she really does not want to have to be admitted to the hospital and would really like to have the thoracentesis done as soon as possible. She is afraid if she misses
the opportunity today to get the thoracentesis done, then she will have difficulty getting through the weekend. I spoke to both Dr. Laci Hernández and GI on-call, Dr. Simeon. Because patient's blood pressure is reasonable and she feels well,
decision made to go ahead with the thoracentesis.
4:45 PM patient back from thoracentesis. 1 L of fluid removed. Patient reports she feels well. Patient reports that she would like to have her daily dose of Lasix given to her due to the swelling of her feet and legs. She reports she takes 40 mg
in the morning and 40 in the evening. She reports she has not had any Lasix today. She reports that she believes the Lasix will help take the fluid off of her swollen ankles and feet. I explained to her that we can give her 40 mg of oral Lasix
now and watch her blood pressure. Patient offered blood work but states that she feels stable and well and would rather get the oral Lasix and just be watched and observed for any drop of blood pressure. I feel this is reasonable. Patient hopes
to go home.
I also called the office of Dr. Manriquez at [phone] and left a message for him so I could discuss the case with him as well.
5:00 PM patient is now refusing the oral Lasix and says she wants IV Lasix. I discussed with her that I am concerned to give IV Lasix given that she may have a significant drop in her blood pressure. Patient reports she is oral Lasix at home and
would rather just go home now. Patient continues to look well with no sign of sepsis. She appears well-hydrated.
ED Attending Note
-
Portions of this chart may have been created with voice recognition software.� Occasional wrong word or��sound alike� substitutions may have occurred due to the inherent limitations of voice recognition software.
Discharge Plan
Departure
Patient Disposition: Home (Routine Discharge)
Date of Disposition: 02/26/25
Time of Disposition: 17:00
Patient with high blood pressure during this ER visit?: No
Condition: Good
Covid-19: Not Applicable
Discharge Problem:
Chronic pleural effusion
Instructions: Thoracentesis
Prescriptions:
No Action
therapeutic multivitamin Tablet
1 tab PO DAILY
dextroamphetamine-amphetamine 30 mg Tablet
30 mg PO BID
folic acid 1 mg Tablet
1 mg PO DAILY
vitamin B complex Capsule
1 cap PO DAILY
naltrexone 50 mg Tablet
50 mg PO DAILY
pantoprazole 40 MG tablet,delayed release (DR/EC)
40 mg PO DAILY
venlafaxine 75 mg Capsule,Extended Release 24hr
75 mg PO DAILY
lactulose 20 gram/30 mL Solution
20 g PO TID Qty: 3000 0RF
Xifaxan 550 mg Tablet
550 mg PO BID Qty: 60 0RF
spironolactone 100 mg Tablet
100 mg PO DAILY
furosemide 40 mg tablet
40 mg PO BID Qty: 60 0RF
cholecalciferol (vitamin D3) [Vitamin D3] 25 mcg (1,000 unit) Tablet
25 mcg PO DAILY
lorazepam 0.5 mg Tablet
0.5 mg PRN (Reason: anxiety)
cephalexin 500 mg capsule
500 mg PO QID Qty: 40 0RF
Referrals:
Louisa Tripathi PA-C [Family Provider] -
Activity Restrictions/Additional Instructions:
Return for any concerning lightheadedness, fever, increased difficulty breathing or any other concerns.
Interventions
Interventions:
*Risk Screen - Suicide Last Done: 02/26/25 14:26
*General Assessment Last Done: 02/26/25 16:36
*Neglect/Abuse Screening Last Done: 02/26/25 16:36
*ED- Fall Risk Assessment Last Done: 02/26/25 16:36
*ED COVID-19 Vaccine History Last Done: 02/26/25 16:36
ED- Cardiac Assessment Last Done: 02/26/25 14:57
Discharge Date and Time
Print Language: SERBIAN
== END 2025-02-26 17:23 | disposition home or self-care (01) ==
LOC: EMR 14:23
PROVIDERS: EMERGENCY PHYSICIAN Emergency Medicine; FAMILY PHYSICIAN Physician Assistant Medical
DX: J90 Pleural effusion, not elsewhere classified (principal); F17.200 Nicotine dependence, unspecified, uncomplicated
CPT/HCPCS: 99283; 32555

== ENCOUNTER 2025-03-01 09:33 | Emergency (ER) | payer OTHER, SELFPAY ==
[2025-03-01] VITALS (21 sets, daily range): BP systolic 95–171; BP diastolic 41–118
--- NOTE | 2025-03-01 09:43 | ED.GENMED ---
Addendum entered and electronically signed by Erick Farooq PA-C 03/02/25 11:21:
Blood culture positive x 2, gram neg bacilli. Faxed result to N[facility]em @ [phone]
Original Note:
History of Present Illness
General
Chief Complaint: Weakness
Time Seen by Provider: 03/01/25 09:43
History of Present Illness
History of Present Illness:
TIME OF INITIAL ENCOUNTER: 9:45 AM
HPI: Patient came in by ambulance from home. She reportedly had a blood pressure of 70 systolic and sat of 90%. Shortly after patient arrival, the mom walked in the room and states patient is to be transferred to [facility]. Of note, the patient did
not take any of her morning meds.
EXAM:
GENERAL: Acute on chronically ill-appearing, she appears very weak, jaundice
HEENT: Dry oral mucosa, scleral icterus
CARDIOVASCULAR: No murmurs, tachycardic heart rate, regular rhythm, No chest wall tenderness
PULMONARY: The patient is tachypneic with a equally decreased breath sounds anteriorly and increased work of breathing
ABDOMEN: Question ascites on physical examination however the patient states that she does not have fluid in her abdomen
NEUROLOGIC: Equally decreased strength all extremities, generally impaired coordination
PSYCHIATRIC: Fair insight and judgement but appears confused at times
EXTREMITIES: Nontender, bilateral lower extremity edema, moves all extremities equally
SKIN: Jaundice, a few scattered erythematous papules on the face
NUMBER AND COMPLEXITY OF PROBLEMS ADDRESSED AT THE ENCOUNTER
� Chronic conditions affecting care: Alcoholic liver disease, has had GI bleed, hepatic encephalopathy
� Acute Exacerbation and/or Progression of Chronic Illness: This is an acute on chronic problem
� Differential Diagnosis includes: Progression of alcoholic liver disease, coagulopathy, hepatic encephalopathy, dehydration, fulminant liver failure
AMOUNT AND/OR COMPLEXITY OF DATA TO BE REVIEWED AND ANALYZED
� I performed an independent evaluation of and my interpretation is:
EKG: Sinus 119, normal axis, nonspecific ST abnormality
CT:
X-rays: Right pleural effusion versus consolidation at the right base
Laboratory Studies: INR 4.4, hemoglobin 7.4, white count 15.5 (was normal 1 month ago) lactic 11, bicarb 11
Other:
� Review of other/old records: The patient was admitted here 1 month ago with alcohol related liver failure with increasing fatigue and shortness of breath. She was admitted with acute hypoxic respiratory failure secondary to
pleural effusion and outpatient blood culture came back positive for Klebsiella pneumonia. She is on Rocephin. She had a thoracentesis that removed 1.6 L of fluid. She had been getting outpatient thoracenteses and also was here 3 days ago and had
a thoracentesis when she came through the ER.
� Clinical information was obtained by an independent historian: I spoke to mother at bedside
� Prescriptions/Medications Considered but not given:
� Further testing considered but not performed:
RISK OF COMPLICATIONS AND/OR MORBIDITY OR MORTALITY OF PATIENT MANAGEMENT
� Social determinants of health affecting care: Lives at home
� Discussion with other providers: At mother's request, I called the [facility] transplanter and left a voicemail at 9:[address] Santamaria regarding thoracentesis however Dr. Santamaria feels that the INR is too
high to safely perform here.
� Escalation of care including admission/observation vs risk of discharge considered:
ANY OTHER UPDATES:
10 AM: I spoke to Dee Haskins, transplanter at [facility], who recommends that we call the transfer line. Rachel tells me that the patient is not currently on the transplant list but is 'close to it'. Dr. Manriquez is her brazer assembler.
Given the recently low blood pressure, I have also ordered a small fluid bolus. The patient's room air sat has been 88 to 90%. She was placed on nasal cannula oxygen. Given the hypotension, I did give a 250 mL fluid bolus. Given the
leukocytosis, along with markedly elevated lactic, empiric antibiotics were given.
10:30 AM: Patient's INR is found to be 4.4�this is the highest its ever been. Lactic is markedly elevated. I did not give a lot of fluid as she has likely component of pleural effusion.
2:30 PM: Still no beds available at [facility].
3:15 PM: Bed available at [facility], awaiting transfer
3:40 PM: The patient continues to appear worse. Will plan intubation.
4 PM: The patient was intubated without difficulty however the patient did have oral bleeding noted (INR 4.4 and thrombocytopenia). I spoke to MICU attending at [facility] and updated him of the transfer. Now planning to fly patient. Planning on having
patient flown to [facility] via [facility].
Past History
Past History
ED Past Medical History: Psychiatric (Anxiety, Depression, ) and Other (alcoholic hepatitis, Cirrhosis of the liver, Ulcers, Iron def anemia, )
ED Past Surgical History: Orthopedic (Jaw surgery) and Other (gastric bypass, Surgery for perforated ulcer)
Social History
Tobacco: Smoker
Alcohol: Chronic alcoholic (patient denies this at this time)
Drug: None
Personal:
Living: with family
Employment: Employed
Family History
Family History: Other
Phy Exam
Physical Exam
Physical Exam:
See HPI
Course
Orders/Labs/Results
Orders:
Orders
03/01/25 09:34
Etomidate [Amidate] 40 mg .ROUTE .STK-MED ONE
Succinylcholine Chloride [Succinylcholine] 200 mg .ROUTE .STK-MED ONE
03/01/25 09:43
Electrocardiogram (*1) Urgent
Reason for Study: Abdominal Pain
EKG- Treatment ONCE
Test Result ONCE
03/01/25 09:47
CR Chest Portable - 1 View Urgent
Comment:
Reason For Exam: sob recurrent pl effusions
Reason Study Needs to be Portable: Patient Unstable
03/01/25 09:54
Complete Blood Count/With Diff Urgent
Manual Differential Urgent
03/01/25 09:57
Prothrombin Time Urgent
03/01/25 10:04
0.9% Sodium Chloride 250 ml [Nss] 250 ml IV BOLUS
03/01/25 10:18
Lorazepam [Ativan] 0.5 mg IV NOW STA
03/01/25 10:33
Ammonia Urgent
Comprehensive Metabolic Panel Urgent
HCG, Serum Qualitative Screen Urgent
Lipase Urgent
03/01/25 10:46
Case Management Consult ONCE
Case Management Consult: Advanced Directive
Requested By:: PT/FAMILY
03/01/25 10:57
Thoracentesis Urgent
Consult Interventional Radiology [IRAD CONSULT] Urgent
Consulting Provider: Leonid Santamaria
Was physician already notified: Yes
Reason for Consult/Procedure: thoracentesis
Acknowledgement that appropriate orders are entered: Yes
03/01/25 11:01
Cefepime HCl [Maxipime] 1,000 mg IV NOW STA
03/01/25 11:25
Vancomycin [Vancocin] 2,000 mg 0.9% Sodium Chloride 500 ml [Nss] 500 ml IV NOW
03/01/25 11:57
Lactic Acid Q4H
Comment: CANCEL 2nd LACTIC ACID IF 1st LACTIC ACID IS LESS THAN 2
Blood Culture Q30M
RAYO Source: Blood/Venous
Specimen Description:
03/01/25 12:00
Dextrose 10%/Water 500 ml [D10w] 500 ml IV 500 mls/hr
03/01/25 12:51
Blood Culture Q30M
RAYO Source: Blood/Venous
Specimen Description:
03/01/25 12:54
Lactulose [Duphalac/Chronulac] 20 grams PO NOW STA
03/01/25 13:02
Sterile Water [Sterile Water For Injection] 10 ml .ROUTE .STK-MED ONE
03/01/25 13:07
0.9% Sodium Chloride 1000 ml [Nss] 1,000 ml IV BOLUS
03/01/25 13:17
Rifaximin [Xifaxan] 550 mg PO NOW STA
03/01/25 15:44
Propofol 1,000,000 Mcg/100 ml [Diprivan] 1,000,000 mcg in 100 ml .ROUTE .STK-MED
03/01/25 15:52
Chest X-ray Portable [CR Chest Portable - 1 View] Stat
Comment:
Reason For Exam: post intubation
Reason Study Needs to be Portable: Patient Unstable
03/01/25 15:54
Fentanyl Citrate/Pf [Sublimaze] 100 mcg IV NOW STA
03/01/25 16:11
Fentanyl Citrate/Pf [Sublimaze] 100 mcg IV NOW STA
03/01/25 16:12
CR Chest Portable - 1 View Urgent
Comment:
Reason For Exam: ETT reposition
Reason Study Needs to be Portable: Patient Unstable
03/01/25 16:22
Propofol [Diprivan] 20 ml .ROUTE .STK-MED
03/01/25 16:29
Propofol [Diprivan] 50 mg IV NOW STA
03/01/25 16:30
Propofol 1,000,000 Mcg/100 ml [Diprivan] 1,000,000 mcg in 100 ml IV PER PROTOCOL
03/01/25 16:31
ABG [Arterial Blood Gas] Urgent
%Oxygen/Room Air: 100%
03/01/25 16:42
Fentanyl Citrate/Pf [Sublimaze] 100 mcg .ROUTE .STK-MED ONE
03/01/25 16:45
Fentanyl Citrate/Pf [Sublimaze] 100 mcg IV NOW STA
Abnormal Lab Results
03/01/25 03/01/25 03/01/25
09:54 09:57 10:33
WBC 15.5 H 10^3/uL
(4.8-10.8)
RBC 1.95 L 10^6/uL
(4.20-5.40)
Hgb 7.4 L g/dL
(12.0-16.0)
Hct 22.5 L %
(37.0-47.0)
MCV 115.4 H fL
(81.0-99.0)
MCH 37.9 H pg
(27.0-31.0)
MCHC 32.9 L g/dL
(33.0-37.0)
RDW 19.9 H %
(11.5-14.5)
Plt Count 86 L 10^3/uL
(130-400)
Abs Neuts (Manual) 13.9 H 10^3/uL
(1.4-6.5)
Band Neutrophils 23 H %
(0-3)
Lymphocytes (Manual) 5 L %
(20-51)
PT 41.4 H Sec
(11.4-14.6)
pH
pCO2
HCO3
Sodium 132 L mmol/L
(135-145)
Carbon Dioxide 11 L* mmol/L
(22-30)
BUN 21 H mg/dl
(7-17)
Creatinine 1.1 H mg/dL
(0.6-1.0)
Glucose 37 L* mg/dl
(70-99)
Lactic Acid
Total Bilirubin 15.3 H mg/dl
(0.2-1.3)
AST 173 H U/L
(14-36)
ALT 69 H U/L
(0-35)
Alkaline Phosphatase 173 H U/L
(38-126)
Ammonia 32 H umol/L
(9-30)
Total Protein 6.0 L g/dl
(6.3-8.2)
Albumin 2.3 L g/dl
(3.5-5.0)
POC Glucose
03/01/25 03/01/25 03/01/25
11:57 14:22 16:31
WBC
RBC
Hgb
Hct
MCV
MCH
MCHC
RDW
Plt Count
Abs Neuts (Manual)
Band Neutrophils
Lymphocytes (Manual)
PT
pH 7.08 L*
(7.35-7.45)
pCO2 42 H mmHg
(32-35)
HCO3 12.5 L* mmol/L
(21-28)
Sodium
Carbon Dioxide
BUN
Creatinine
Glucose
Lactic Acid 11.3 H* mmol/L
(0.7-2.0)
Total Bilirubin
AST
ALT
Alkaline Phosphatase
Ammonia
Total Protein
Albumin
POC Glucose 142 H mg/dl
(70-99)
03/01/25 09:54
03/01/25 10:33
Vital Signs
Initial and Last Documented VS:
Initial Vital Signs
Temp Pulse Resp BP Pulse Ox
36.6 C 120 30 105/54 88
03/01/25 09:35 03/01/25 09:35 03/01/25 09:35 03/01/25 09:35 03/01/25 09:35
Last Documented Vital Signs
Temp Pulse Resp BP Pulse Ox
36.6 C 116 18 129/72 96
03/01/25 09:35 03/01/25 16:50 03/01/25 16:50 03/01/25 16:50 03/01/25 16:50
Procedures
Intubations
Procedure completed by: , Dr. Alonzo
Method of Intubation: glidescope
Tube size (cm): 7.0
Placement confirmed by: auscutation, capnography and direct visualization
Breath sounds after intubation: left greater than right (Tube was pulled back prior to x-ray)
Additional information:
The patient was intubated fairly easily in 1 attempt however she did have intraoral bleeding noted after the procedure.
*Critical Care Note
Total Time (30-74mins, 75-104mins- exclusive of procedures): 80min
comment:
The patient became increasingly ill-appearing. Her respiratory status worsened throughout the stay in the emergency department. Her vital signs were very closely monitored throughout her stay in the emergency department. She has remained
tachycardic. Broad-spectrum antibiotics were given. ABG shows likely mixed acidosis. Blood sugars were low which were corrected. Blood pressure was transiently low but she did improve with fluids. Had multiple discussions with family and I also
spoke to Naseem several times.
ED Attending Note
-
Portions of this chart may have been created with voice recognition software.� Occasional wrong word or��sound alike� substitutions may have occurred due to the inherent limitations of voice recognition software.
Discharge Plan
Departure
Patient Disposition: Acute Care Hospital
Date of Disposition: 03/01/25
Time of Disposition: 11:09
Discharge Problem:
Liver failure
Prescriptions:
No Action
therapeutic multivitamin Tablet
1 tab PO DAILY
dextroamphetamine-amphetamine 30 mg Tablet
30 mg PO BID
folic acid 1 mg Tablet
1 mg PO DAILY
vitamin B complex Capsule
1 cap PO DAILY
naltrexone 50 mg Tablet
50 mg PO DAILY
pantoprazole 40 MG tablet,delayed release (DR/EC)
40 mg PO DAILY
venlafaxine 75 mg Capsule,Extended Release 24hr
75 mg PO DAILY
Xifaxan 550 mg Tablet
550 mg PO BID Qty: 60 0RF
spironolactone 100 mg Tablet
50 mg PO BID
furosemide 40 mg tablet
40 mg PO BID Qty: 60 0RF
cholecalciferol (vitamin D3) [Vitamin D3] 25 mcg (1,000 unit) Tablet
25 mcg PO DAILY
lorazepam 0.5 mg Tablet
0.5 mg PO DAILYPRN PRN (Reason: anxiety)
magnesium oxide 420 mg Tablet
420 mg PO DAILY
cyanocobalamin (vitamin B-12) 1,000 mcg Tablet
1,000 mcg PO DAILY
ascorbic acid (vitamin C) [Vitamin C] 500 mg Tablet
500 mg PO DAILY
lactulose 10 gram/15 mL Solution
20 g PO TID
Referrals:
Louisa Tripathi PA-C [Family Provider] -
Hospital Transfer
Other hospital: [facility]
I certify that the patient requires transfer: Yes
Discussed case with accepting physician: Dr. Manriquez
Reason for transfer: higher level of care, specialties available and continuity of care PCP
Interventions
Interventions:
*Risk Screen - Suicide Last Done: 03/01/25 09:35
*General Assessment Last Done: 03/01/25 09:35
*Neglect/Abuse Screening Last Done: 03/01/25 09:35
*ED COVID-19 Vaccine History Last Done: 03/01/25 10:00
*Nursing Disposition Last Done: 03/01/25 17:57
ED- Cardiac Assessment Last Done: 03/01/25 10:52
ED- Neurological Assessment Last Done: 03/01/25 10:52
ED- Pulmonary Assessment Last Done: 03/01/25 10:52
Discharge Date and Time
Discharge Date/Time: 03/01/25 17:59
Print Language: FRENCH
[2025-03-01] MEDS: NSS 250 IV (10:14)
[2025-03-01 10:21] LABS: INR 4.39; PT 41.4 Sec (11.4-14.6)
[2025-03-01] MEDS: ATIVAN 0.5 MG IV (10:25)
[2025-03-01 10:37] LABS: Hematocrit 22.5 % (37.0-47.0); Hemoglobin 7.4 g/dL (12.0-16.0); Mean Corp Hgb Conc. 32.9 g/dL (33.0-37.0); Mean Corpuscular Hgb 37.9 pg (27.0-31.0); Mean Corpuscular Volume 115.4 fL (81.0-99.0); Red Blood Cell Count 1.95 10^6/uL (4.20-5.40); Red Cell Dist. Width 19.9 % (11.5-14.5); White Blood Cell Count 15.5 10^3/uL (4.8-10.8)
[2025-03-01 11:14] LABS: Mean Platelet Volume 9.5 fL (7.4-10.4); Platelet Count 86 10^3/uL (130-400)
[2025-03-01 11:16] LABS: Absolute Neutrophils -Man Diff 13.9 10^3/uL (1.4-6.5); Band Neutrophils 23 % (0-3); Lymphocytes 5 % (20-51); Monocytes 5 % (2-9); Segmented Neutrophils 67 % (42-75)
[2025-03-01 11:17] LABS: Anisocytosis 2+; Hypochromasia 1+; Normal RBC Morphology No; Nucleated Red Blood Cells 1 (-); Platelets Checked Yes; Vacuolated Segs 1+
[2025-03-01 11:18] LABS: Acanthocytes 3+; Burr Cells FEW; Polychromasia 2+; Schistocytes 1+; Total Cells Counted 100
[2025-03-01 11:29] LABS: AST (SGOT) 173 U/L (14-36); Albumin 2.3 g/dl (3.5-5.0); Alkaline Phosphatase 173 U/L (38-126); Blood Urea Nitrogen 21 mg/dl (7-17); Calcium 8.5 mg/dl (8.4-10.2); Carbon Dioxide 11 mmol/L (22-30); Chloride 104 mmol/L (98-107); Estimated Creatinine Clearance 73 ml/min; Glucose 37 mg/dl (70-99); Potassium 4.8 mmol/L (3.5-5.1); Sodium 132 mmol/L (135-145); Total Bilirubin 15.3 mg/dl (0.2-1.3); eGFR > 60.00
[2025-03-01 11:37] LABS: ALT (SGPT) 69 U/L (0-35)
[2025-03-01 11:40] LABS: HCG, Serum Qualitative Screen Negative
[2025-03-01 11:48] LABS: Ammonia 32 umol/L (9-30)
[2025-03-01 11:58] LABS: Lipase 107 U/L (23-300)
[2025-03-01 12:37] LABS: Lactic Acid 11.3 mmol/L (0.7-2.0)
[2025-03-01] MEDS: D10W 500 IV (13:07)
[2025-03-01] MEDS: DUPHALAC/CHRONULAC 20 GRAMS PO (13:08)
[2025-03-01] MEDS: MAXIPIME 1000 MG IV (13:08)
[2025-03-01] MEDS: XIFAXAN 550 MG PO (13:32)
[2025-03-01] MEDS: NSS 1000 IV (13:33)
[2025-03-01] MEDS: VANCOCIN 540 MG IV (13:47)
[2025-03-01 14:24] LABS: Glucose - Point of Care 142 mg/dl (70-99)
[2025-03-01] MEDS: SUBLIMAZE 100 MCG IV ×3 (16:00→17:36)
[2025-03-01] MEDS: DIPRIVAN 100 IV (16:35)
[2025-03-01 16:41] LABS: B.E. -16.4 mmol/L; O2 Saturation % 97.8 % (94-98); PCO2 42 mmHg (32-35); PO2 98 mmHg (83-108)
[2025-03-01 16:43] LABS: HCO3 12.5 mmol/L (21-28); pH 7.08 (7.35-7.45)
[2025-03-01] MEDS: DIPRIVAN 50 MG IV (17:00)
== END 2025-03-01 17:59 | disposition short-term general hospital (02) ==
LOC: EMR 09:33
PROVIDERS: CONSULT PHYSICIAN Radiology Diagnostic Radiology; EMERGENCY PHYSICIAN Emergency Medicine; FAMILY PHYSICIAN Physician Assistant Medical
DX: K72.90 Hepatic failure, unspecified without coma (principal); R00.0 Tachycardia, unspecified; I95.9 Hypotension, unspecified; F41.9 Anxiety disorder, unspecified; F32.A Depression, unspecified; D50.9 Iron deficiency anemia, unspecified; K74.60 Unspecified cirrhosis of liver; D69.6 Thrombocytopenia, unspecified; K70.10 Alcoholic hepatitis without ascites; F17.200 Nicotine dependence, unspecified, uncomplicated; Z98.84 Bariatric surgery status
CPT/HCPCS: 99291; 99292; 96365; 96366; 96367; 96375 ×4; 96376; 31500; 71045; 80053; 82140; 82805; 82962; 83605; 83690; 84703; 85025; 85610; 87040; 87077; 87205; 93005; 94002